=== PATIENT | male | born 1945 | race Caucasian/White ===

== ENCOUNTER 2021-05-02 18:49 | Outpatient (CLI) | payer MEDICARE, OTHER, SELFPAY ==
[2021-05-02 18:59] LABS: Basophils % 0.4 %; Eosinophils % 0.4 %; Hematocrit 27.7 % (42.0-52.0); Hemoglobin 9.4 g/dL (11.7-16.6); Lymphocytes # 1.9 10^3/uL (0.8-4.8); Lymphocytes % 39.6 %; Mean Corpuscular HGB Conc 33.9 g/dL (30.0-36.0); Mean Corpuscular Hemoglobin 32.4 pg (28.0-34.0); Mean Corpuscular Volume 95.5 fL (80-94); Mean Platelet Volume 9.9 fL (7.4-10.4); Monocytes # 0.5 10^3/uL (0.2-0.9); Neutrophils # 2.37 10^3/uL (1.8-7.7); Neutrophils % 49.4 %; Nucleated Red Blood Cells % 0 %; Platelet Count 204 10^3/cmm (130-400); Red Cell Distribution Width 15.7 % (12.1-15.1); White Blood Count 4.8 10^3/uL (4.0-10.0)
[2021-05-02 19:25] LABS: Anion Gap 16.1 (5-19); Blood Urea Nitrogen 19 mg/dL (8-23); Calcium 7.7 mg/dL (8.5-10.5); Carbon Dioxide 25 mmol/L (22-29); Chloride 98 mmol/L (98-107); Glucose 114 mg/dL (65-115); Osmolality Calculated 283 mOsm/kg (285-295); Potassium 4.1 mmol/L (3.5-5.1); Sodium 135 mmol/L (136-145)
== END 2021-05-02 18:50 | disposition home or self-care (01) ==
PROVIDERS: Visit Provider Family Medicine
DX: K74.60 Unspecified cirrhosis of liver (principal); I50.9 Heart failure, unspecified
CPT/HCPCS: 80048; 85025

== ENCOUNTER 2021-06-26 13:07 | Inpatient (IN) | payer OTHER, MEDICARE, SELFPAY ==
[2021-06-26] VITALS (7 sets, daily range): BP systolic 104–114; BP diastolic 7–79; PULSE 81–98; RESP 22–26; TEMP 36.6–37.2; O2SAT 92–95; BMI 23.3
--- NOTE | 2021-06-26 13:36 | XRR_ITS ---
PROCEDURE INFORMATION: Exam: XR Chest Exam date and time: 06/26/2021 1:36 PM Age: 76 years old Clinical indication: Cough TECHNIQUE: Imaging protocol: XR of the chest. Views: 1 view. COMPARISON: No relevant prior studies available. FINDINGS: Tubes, catheters and devices: Three lead pacemaker device. Lungs: There are streaky right perihilar opacities. Left costophrenic angle is not visualized and a pleural effusion cannot be assessed for. Pleural spaces: See Lungs finding. Heart/Mediastinum: Unremarkable. No cardiomegaly. Bones/joints: There are posterior sternotomy changes and postoperative changes overlying the mediastinum. Soft tissues: No normal left lung tissue is seen. The region of the left lung appears to be completely consolidated. XR/XR chest 1V portable [id number] IMPRESSION: 1. Complete consolidation of the left lung space. Differential includes pneumonia, atelectasis, and or neoplasm. 2. Streaky opacities at the right perihilum are nonspecific.
--- NOTE | 2021-06-26 13:37 | ED_ITS ---
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 They sent the patient to the emergency department for testing. Patient's vital signs are stable. O2 sat on room air is 95%. Patient has no specific complaints. Patient states he recently got out of [facility] in [place]. Patient looks like he has a history of cirrhosis of the liver. And has a defibrillator in the left chest. Patient has multiple spots of bruising on his chest. Will do medical evaluation treat as needed. Patient states recently was admitted to [facility] and had fluid drained from his left lung. Patient has long history of chronic cirrhosis and prostate cancer. Patient has a defibrillator left chest. Patient states he is not going back to [facility]. Patient was transferred to the local nursing facility in this area for penitentiary placement. Nursing staff attempted to try to get medical records from [facility]. This patient does not appear to have any TB type issues. Severity: mild Associated symptoms: Deny chest pain, dyspnea, headache(s), nausea, rash, palpitations or vomiting Review of Systems General: Reports: 10 or more systems reviewed and unremarkable except in HPI and below Const: Denies: fever(s), chills, body aches or fatigue Eyes: Denies: change in vision or blurry vision ENMT: Denies: throat pain, hoarseness or mouth pain Card: Denies: chest pain, palpitations, irregular heart rhythm, edema, swelling of feet/ankles or lightheadedness Resp: Reports: non-productive cough; Denies: dyspnea, productive cough, wheezing or pain on inspiration GI: Denies: abdominal pain, nausea or vomiting : Denies: flank pain, dysuria, urinary frequency, urinary urgency or urinary hesitancy Musc: Denies: neck pain, back pain, extremity pain, extremity swelling, joint pain, joint swelling, joint redness, joint warmth or limited range of motion Skin/Breast: Denies: rash, pruritus, erythema or skin tenderness Neuro: Denies: headache(s), numbness in extremities or weakness in extremities Psych: Denies: anxiety or depression Physical Exam Const: COMMON NORMALS: no acute distress, average body habitus, patient oriented x3, no limitations, healthy appearing, alert and well nourished HENMT: COMMON NORMALS: normocephalic, atraumatic, hearing grossly normal bilaterally, external ears normal, EAC's normal, TM's normal bilaterally, Normal external nose present, Normal nasal mucous membranes and turbinates present, moist oral mucous membranes, oropharynx normal, dentition normal and gingiva normal HEAD & SCALP: normocephalic and atraumatic NOSE: Normal external nose present and Normal nasal mucous membranes and turbinates present EXTERNAL EAR: Yes external ears normal EXTERNAL AUDITORY CANAL: EAC's normal TYMPANIC MEMBRANE: TM's normal bilaterally Neck/C-Spine: COMMON NORMALS: full ROM, no lymphadenopathy, supple, no meningeal signs, no JVD, Thyroid normal and No carotid bruits THYROID: Thyroid normal Chest: COMMONS NORMALS: normal inspection of the chest, normal palpation of entire chest wall, normal inspection of the breasts and normal palpation of the breasts Breast/axilla inspection: Yes normal inspection of the breasts BREAST/AXILLA PALPATION: Yes normal palpation of the breasts Resp: COMMON NORMALS: normal respiratory effort, No retractions, No use of accessory muscles, clear to auscultation bilaterally and percussion normal AUSCULTATION: clear to auscultation bilaterally PERCUSSION: percussion normal Cardio: COMMON NORMALS: no JVD, regular rate, regular rhythm, S1 normal heart sound present, S2 normal heart sound present, No gallops present (Cardio), No clicks present (Cardio), No murmurs present (Cardio), No rub (Cardio) and Peripheral pulses 2+ throughout RATE: regular rate RHYTHM: regular rhythm HEART SOUNDS: S1 normal heart sound present and S2 normal heart sound present PERIPHERAL PULSES: Peripheral pulses 2+ throughout GI: COMMON NORMALS: Normal to inspection, nondistended, normoactive bowel sounds present, Soft to palpation, non-tender, No hepatosplenomegaly present, no masses and no bruits PALPATION: Yes Soft to palpation and Yes No hepatosplenomegaly present : COMMON NORMALS: Yes no CVA tenderness BLADDER/KIDNEY EXAM: Yes no CVA tenderness Back/Pelvis: COMMON NORMALS: no CVA tenderness, thoracic and lumbar spine normal to inspection, no thoracic nor lumbar tenderness, thoraco-lumbar ROM normal and straight leg raise negative bilaterally Extremity: COMMON NORMALS: normal to inspection, full ROM, capillary refill normal, no joint enlargement, no clubbing, cyanosis or edema, no calf tenderness and no pedal edema Neuro: COMMON NORMALS: patient oriented x3 SENSORIUM/ORIENTATION: Yes alert MENINGEAL SIGNS: Yes no meningeal signs Course Reevaluation(s): Reevaluation #1: Patient is stable at this time O2 sats 95% on room air. Patient appears to have chronic conditions to cause his recurrent pleural effusion per his history. Patient is agreeable to stay in the hospital. Patient did have an outpatient lab draw for TB. Time: 16:57 Consultations: Consultation #1: I did just speak with Dr.NIDA goodrich. She is agreed to see the patient write additional orders. Time: 16:58 Consultation #2: I did speak at length with Dr. Mccormick pulmonology they will see patient as a consult Time: 16:58 Vital Signs: Vital signs: Vital Signs Temperature 98.7 F 06/26/21 14:00 Pulse Rate 91 06/26/21 14:00 Respiratory Rate 24 H 06/26/21 13:40 Blood Pressure 104/74 06/26/21 14:00 Pulse Oximetry 95 06/26/21 14:00 MDM - General Adult MDM Narrative: Medical decision making narrative: Patient is stable at this time O2 sats 95% on room air. Patient appears to have chronic conditions to cause his recurrent pleural effusion per his history. Patient is agreeable to stay in the hospital. Patient did have an outpatient lab draw for TB. I did just speak with Dr.NIDA goodrich. She is agreed to see the patient write additional orders. I did speak at length with Dr. Mccormick pulmonology they will see patient as a consult Lab Data: Labs: Lab Results 06/26/21 06/26/21 06/26/21 Range/Units 14:15 14:15 14:15 WBC 3.8 L (4.0-10.0) 10^3/ uL RBC 2.94 L (4.1-5.3) 10^6/u L Hgb 9.3 L (11.7-16.6) g/dL Hct 29.1 L (42.0-52.0) % MCV 99.0 H (80-94) fl MCH 31.6 (28.0-34.0) pg MCHC 32.0 (30.0-36.0) g/dL RDW 16.8 H (12.1-15.1) % Plt Count 203 (130-400) 10^3/c mm MPV 9.0 (7.4-10.4) fL Neut % (Auto) 63.1 % Lymph % (Auto) 25.1 % [place] % (Auto) 10.7 % Eos % (Auto) 0.3 % Baso % (Auto) 0.5 % Neut # (Auto) 2.37 (1.8-7.7) 10^3/u L Lymph # (Auto) 0.9 (0.8-4.8) 10^3/u L [place] # (Auto) 0.4 (0.2-0.9) 10^3/u L Eos # (Auto) 0.0 (0.0-0.8) 10^3/u L Baso # (Auto) 0.0 (0.0-0.1) 10^3/u L Nucleated RBC % (a uto) 0 % Nucleated RBCs # 0.0 /100WBC PT 19.90 H (12.1-14.9) SECO NDS INR 1.65 H (0.8-1.2) APTT 44.5 H (23.9-36.7) SECO NDS Sodium 137 (136-145) mmol/L Potassium 4.1 (3.5-5.1) mmol/L Chloride 108 H (98-107) mmol/L Carbon Dioxide 20 L (22-29) mmol/L Anion Gap 13.1 (5-19) BUN 18 (8-23) mg/dL Creatinine 0.9 (0.7-1.2) mg/dL GFR Calculation Not Reportable Glucose 113 (65-115) mg/dL Calculated Osmolal ity 287 (285-295) mOsm/k g Calcium 8.2 L (8.5-10.5) mg/dL Total Bilirubin 1.0 (0.15-1.2) mg/dL AST 14 (0-40) U/L ALT 6 (0-41) U/L Alkaline Phosphata se 164 H (40-130) IU/L Total Protein 5.6 L (6.6-8.7) g/dL Albumin 2.3 L (3.5-5.2) g/dL Globulin 3.3 (1.3-4.6) g/dL Discharge Plan Discharge Patient Disposition: Placed in Observation Clinical Impression: Dyspnea, Recurrent left pleural effusion, Cirrhosis of liver Coding Level of Care Code ED Extractor Operator Helper for [facility] Fwd Exam Comprehensive
--- NOTE | 2021-06-26 14:02 | PC.NURSE ---
unable to get venipuncture. lab called for blood draw.
[2021-06-26 14:37] LABS: Basophils % 0.5 %; Eosinophils % 0.3 %; Hematocrit 29.1 % (42.0-52.0); Hemoglobin 9.3 g/dL (11.7-16.6); INR 1.65 (0.8-1.2); Lymphocytes # 0.9 10^3/uL (0.8-4.8); Lymphocytes % 25.1 %; Mean Corpuscular Hemoglobin 31.6 pg (28.0-34.0); Monocytes # 0.4 10^3/uL (0.2-0.9); Monocytes % 10.7 %; Neutrophils # 2.37 10^3/uL (1.8-7.7); Neutrophils % 63.1 %; Nucleated Red Blood Cells % 0 %; Platelet Count 203 10^3/cmm (130-400); Red Blood Count 2.94 10^6/uL (4.1-5.3); Red Cell Distribution Width 16.8 % (12.1-15.1); White Blood Count 3.8 10^3/uL (4.0-10.0)
[2021-06-26 14:38] LABS: Partial Thromboplastin Time 44.5 SECONDS (23.9-36.7)
[2021-06-26 14:48] LABS: Alanine Aminotransferase 6 U/L (0-41); Albumin Level 2.3 g/dL (3.5-5.2); Alkaline Phosphatase 164 IU/L (40-130); Anion Gap 13.1 (5-19); Aspartate Amino Transferase 14 U/L (0-40); Blood Urea Nitrogen 18 mg/dL (8-23); Calcium 8.2 mg/dL (8.5-10.5); Carbon Dioxide 20 mmol/L (22-29); Chloride 108 mmol/L (98-107); Globulin 3.3 g/dL (1.3-4.6); Glucose 113 mg/dL (65-115); Osmolality Calculated 287 mOsm/kg (285-295); Potassium 4.1 mmol/L (3.5-5.1); Sodium 137 mmol/L (136-145); Total Protein 5.6 g/dL (6.6-8.7)
--- NOTE | 2021-06-26 15:31 | CTR_ITS ---
PROCEDURE INFORMATION: Exam: CT Chest Without Contrast; Diagnostic Exam date and time: 06/26/2021 3:31 PM Age: 76 years old Clinical indication: Abnormal findings; Abnormal radiologic exam of lung or chest; Prior surgery; Surgery date: 6+ months; Surgery type: Cabg, defib; Patient HX: C/O cough w L lung effusion; Additional info: Pleural effsusion TECHNIQUE: Imaging protocol: Diagnostic computed tomography of the chest without contrast. Radiation optimization: All CT scans at this facility use at least one of these dose optimization techniques: automated exposure control; mA and/or kV adjustment per patient size (includes targeted exams where dose is matched to clinical indication); or iterative reconstruction. COMPARISON: CR XR chest 1V portable [id number] 06/26/2021 1:48 PM RADIATION DOSE METRICS: Total DLP (mGy-cm): 717.36 FINDINGS: Tubes, catheters and devices: Three lead pacemaker device. Lungs: There are pulmonary parenchymal calcifications consistent with remote granulomatous organism exposure. There are scattered regions of right subpleural interstitial thickening, greatest at the lung base, suggestive of pulmonary fibrosis. Pleural spaces: Large left pleural effusion with adjacent compressive atelectasis and or pneumonia. Heart: Multivessel atherosclerotic disease which involves the coronary arteries. Mediastinal space: There are post sternotomy changes and postoperative changes in the anterior mediastinum. There is leftward mediastinal shift. Aorta: Unremarkable. No aortic aneurysm. Lymph nodes: Unremarkable. No enlarged lymph nodes. Bones/joints: Unremarkable. No acute fracture. Soft tissues: Unremarkable. CT/CT chest wo con [id number] IMPRESSION: 1. Large left pleural effusion with adjacent compressive atelectasis and or pneumonia. There is definitely a degree of atelectasis involved in the consolidation as there is a leftward mediastinal shift. Underlying neoplasm in the region of consolidation cannot be excluded. 2. There are scattered regions of right subpleural interstitial thickening, greatest at the lung base, suggestive of pulmonary fibrosis. Radiation Dose CTDIVOL = (mGy): DLP = 717.36 (mGy-cm)
--- NOTE | 2021-06-26 17:45 | PC.NURSE ---
tried to call report, [facility] nurse to call me back
--- NOTE | 2021-06-26 18:56 | PM.HP ---
Providers/Chief Complaint Admitting Physician: Matilda Hairston MD Chief Complaint: COUGH; WANTS TB TEST History of Present Illness Hernan iRzo is a 76 year old male with past medical history significant for alcoholic cirrhosis, prostate cancer status post 9 weeks of radiation 6 years ago, hypertension, CABG with dilated cardiomyopathy with recent echo of LVEF 50%, status post ICD, portal gastropathy, hepatic encephalopathy, type 2 diabetes who presents to the ED today requesting a TB test. Patient is a very very poor historian. He is aware he is in the hospital knows what year it is and is alert but does not seem to want to talk. When asked questions he is unable to really provide much information except that he has been coughing up brown sputum. He repeatedly tells me that he was at [facility] admitted for low blood pressure and from there was sent to rehab in a care home. custodial is requesting a TB test and that is why he is here. He denies having a history of alcoholic cirrhosis or any other medical problems however does acknowledge that he has had open heart surgery in 1991. He does endorse having had thoracentesis and paracentesis prior but unable to give me a timeframe. Paperwork and discharge summary was requested from [facility] which details that patient was recently admitted there for acute respiratory failure due to large left pleural effusion along with significant hypovolemic shock and SRINIVAS. There was a questionable GI bleed although it was ruled out at the end. He did require ICU stay and was on Levophed for short part of time. Eventually [facility]. 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 Patient repeatedly states that he does not want to go back to [facility] as he was treated poorly area and would like to stay here in [place]. He lives in [place] and sees his primary care physician at [place] at the [place]. He does not know the name of his doctor. Today he reports to me that he has been having brown sputum for quite some time now he believes after his recent thoracentesis it has gotten worse. He denies any night sweats, fevers, chest pain, abdominal pain, recent falls. Denies having a cough although patient was coughing while I was in the room. He lives at home with his prior to going to hospital in [place]. 's name is Laila [phone]. He is a former smoker quit in 1991, reports quitting alcohol 1 year ago. Most of the above information was obtained from discharge summary from [facility]. Although patient did answer most of my questions I do not believe he is a reliable historian at this point. Review of Systems Const: Denies: fever(s), chills, body aches, change in appetite, change in weight, fatigue, night sweats or diaphoresis Eyes: Denies: change in vision or blurry vision ENMT: Denies: hoarseness, mouth pain or change in hearing Card: Denies: chest pain, palpitations, swelling of feet/ankles, syncope or dyspnea on exertion Resp: Reports: productive cough and change in phlegm color; Denies: dyspnea GI: Denies: abdominal pain, nausea, vomiting, dysphagia or diarrhea : Denies: difficulty urinating, urinary frequency or urinary urgency Musc: Denies: neck pain or back pain Skin/Breast: Denies: rash or skin swelling Neuro: Reports: difficulty walking; Denies: headache(s) or weakness in extremities Psych: Denies: anxiety, depression or difficulty concentrating Endo: Denies: excessive sweating [place]/Lymph: Reports: easy bruising Medications/Allergies Home Medications Medication Instructions Recorded Confirmed Last Taken Type acetaminophen 325 mg PO Q6H PRN 06/26/21 06/26/21 Unknown History acetaminophen 500 mg PO TID PRN 06/26/21 06/26/21 Unknown History allopurinol 100 mg PO DAILY 06/26/21 06/26/21 06/26/21 History aspirin 81 mg PO DAILY 06/26/21 06/26/21 06/26/21 History atorvastatin 40 mg PO DAILY 06/26/21 06/26/21 06/25/21 History bisacodyl [Dulcolax (bisacodyl)] 10 mg MA DAILY PRN 06/26/21 06/26/21 Unknown History calcium carbonate 500 mg PO BID 06/26/21 06/26/21 06/26/21 History cholecalciferol (vitamin D3) 25 mcg PO DAILY 06/26/21 06/26/21 06/26/21 History [Vitamin D3] cyanocobalamin (vitamin B-12) 6,000 mcg PO DAILY 06/26/21 06/26/2106/26/21 History ferrous fumarate 324 mg PO DAILY 06/26/21 06/26/21 06/26/21 History folic acid 1 mg PO DAILY 06/26/21 06/26/21 06/26/21 History furosemide [Lasix] 20 mg PO DAILY 06/26/21 06/26/21 06/26/21 History gabapentin 600 mg PO BEDTIME 06/26/21 06/26/21 06/25/21 History lactulose 30 ml PO Q6H 06/26/21 06/26/21 06/25/21 History levothyroxine 50 mcg PO DAILY 06/26/21 06/26/21 06/24/21 History midodrine 5 mg PO TID 06/26/21 06/26/21 06/26/21 History nitroglycerin [Nitrostat] 0.4 mg SUBLINGUAL Q5M PRN 06/26/21 06/26/21 Unknown History pantoprazole 40 mg PO DAILY 06/26/21 06/26/21 06/26/21 History rifaximin [Xifaxan] 550 mg PO BID 06/26/21 06/26/21 06/26/21 History sucralfate [Carafate] 1 g PO QID 06/26/21 06/26/21 06/24/21 History Allergies Allergy/AdvReac Type Severity Reaction Status Date / Time morphine Allergy Unknown Unknown Verified 06/26/21 17:27 PFSH Acute PFSH: Medical History (Updated 06/26/21 @ 20:27 by Matilda Hairston MD) Cirrhosis of liver Diabetes mellitus Dilated cardiomyopathy Dyspnea Hepatic encephalopathy Hypertension Hypothyroidism ICD (implantable cardioverter-defibrillator) in place Prostate cancer Recurrent left pleural effusion Varices, esophageal Surgical History (Updated 06/26/21 @ 19:10 by Matilda Hairston MD) Hx of CABG Knee joint replacement status Social History (Updated 06/26/21 @ 19:12 by Matilda Hairston MD) Smoking and tobacco status: former smoker Quit status (tobacco): has quit using tobacco Alcohol intake: former Desire information about alcohol rehabilitation?: No Other details last alcohol use: 1 year prior Substance/Drug Use: never Lives independently: No Household members: spouse Current gender identity: Male Vitals/I&O/Wt Last Vital Signs Temp 98.9 F 06/26/21 17:45 Pulse 96 06/26/21 18:38 Resp 22 H 06/26/21 18:38 BP 106/54 06/26/21 18:38 Pulse Ox 94 06/26/21 17:45 Weight last 48 hrs Weight 63.503 kg Physical Exam Narrative: EXAM NARRATIVE: General: Alert oriented x3, patient seen laying in bed in emergency room bed 8. Frail-appearing male cachectic appearance, temporal wasting. Patient awfully quiet and appears depressed. Does not seem to want to talk. Does answer questions but does not seem to be reliable historian. Appears confused but is alert and oriented. Continuously expectorates brownish sputum into an Ensure bottle. HEENT: Normocephalic, atraumatic, EOMI, breathing room air Cardio: Regular rate rhythm, normal S1-S2, no murmurs rubs gallops, no JVD, ICD in place left-sided chest. Respiratory: Significant crackles all throughout the right side of chest, left side clear to auscultation with mild crackles at the bases. GI: Abdomen soft, nontender, distended, fluid wave positive, normoactive bowel sounds present all 4 quadrants, No focal neurological deficit, limited neuro exam Behavior: Appears depressed, did cooperate somewhat. Extremities: No cyanosis or edema. Skin: Large areas of ecchymosis all over chest shoulders and arms. Dry appearing scaly skin, Data : 06/26/21 14:15 06/26/21 14:15 A&P Assessment and plan (1) Recurrent left pleural effusion: CT chest shows large left pleural effusion with adjacent compressive atelectasis and/or pneumonia. There is definitely a degree of atelectasis involving the consolidation adjacent left with mediastinal shift. Underlying neoplasm in the region of consolidation cannot be excluded. There are scattered regions of right subpleural interstitial thickening greatest at lung base congestive pulmonary fibrosis. Rule out TB as per care home request. Patient has been having dark brown sputum production from last several weeks as per he reports. We will start airborne precautions and ordered both QuantiFERON-TB test. Have ordered thoracentesis and pleural fluid studies Consult pulmonology. Will await further recommendations. Will order sputum culture and Gram stain Check procalcitonin We will order urine antigens for strep pneumo and Legionella, MRSA nares swab Cover with vanc and cefepime as empiric therapy for now. Continue patient on Lasix, lactulose, Carafate, rifaximin. Ammonia level has been ordered. Will start Lasix 40 mg daily, spironolactone 100 mg daily. If map drops below 65 patient is to get low-dose Levophed. Case was discussed over the phone with Dr. Baugh who will see patient in the morning. We will review records from [facility] in regards to cirrhosis of the liver status at this point. We will continue patient on lactulose rifaximin.MELD score 12. Continue patient on levothyroxine Check hemoglobin A1c. If required continue low-dose sliding scale insulin per patient I would also like to request records from his primary care physician to get a little more information. Status: Acute (2) Cirrhosis of liver: We will review records from [facility] in regards to cirrhosis of the liver status at this point. We will continue patient on lactulose rifaximin. Status: Acute (3) Hypothyroidism: Status: Acute (4) Diabetes mellitus: Status: Acute (5) Hepatic encephalopathy: Status: Acute (6) Dyspnea: Status: Acute (7) Protein-calorie malnutrition, severe: Status: Acute Attestations Medical Necessity Statement*: Patient will require thoracentesis in the morning. Time Spent in Patient Care: Greater than 35 minutes Coding Level of Care Code Acute Investigations Consultant for [facility] Fwd Diagnoses Recurrent left pleural effusion J90 Cirrhosis of liver K74.60 Hypothyroidism E03.9 Diabetes mellitus E11.9 Hepatic encephalopathy K72.90 Dyspnea R06.00 Protein-calorie malnutrition, severe E43
[2021-06-26 20:37] LABS: Ammonia 34 umol/L (16-60)
[2021-06-26 21:01] LABS: Procalcitonin 0.27 ng/mL (0-0.5)
--- NOTE | 2021-06-26 21:26 | PC.PHAR ---
Vancomycin is dosed at 1500mg IVPB every 24 hours to produce a predicted trough level of 12.97 (population based pharmacokinetic analysis). A trough level has been ordered from the lab to be obtained before the fourth dose to confirm and adjust if needed.
[2021-06-26] MEDS: midodrine 5 mg TABLET PO (22:41)
[2021-06-26] MEDS: sucralfate 1 gm Tablet PO (22:41)
[2021-06-26] MEDS: lactulose oral liq 20 gm/30 mL UDC PO (22:49)
[2021-06-26] MEDS: vancomycin 1,500 MG/300 ML PIGGYBACK 150 MG IV (22:50)
[2021-06-26] MEDS: cefepime 1,000 MG in sodium chloride 0.9% (plus) 50 ML 100 MG IV (22:56)
[2021-06-27] VITALS (30 sets, daily range): BP systolic 93–119; BP diastolic 42–84; PULSE 0–98; RESP 17–29; TEMP 36.6–37.2; O2SAT 85–93
[2021-06-27 04:17] LABS: Basophils % 0.9 %; Eosinophils % 0.9 %; Hematocrit 30.7 % (42.0-52.0); Hemoglobin 9.1 g/dL (11.7-16.6); Lymphocytes % 29.8 %; Mean Corpuscular HGB Conc 29.6 g/dL (30.0-36.0); Mean Corpuscular Hemoglobin 32.2 pg (28.0-34.0); Mean Corpuscular Volume 108.5 fl (80-94); Mean Platelet Volume 9.1 fL (7.4-10.4); Monocytes # 0.4 10^3/uL (0.2-0.9); Monocytes % 11.3 %; Neutrophils # 1.97 10^3/uL (1.8-7.7); Neutrophils % 56.8 %; Nucleated Red Blood Cells % 0 %; Platelet Count 182 10^3/cmm (130-400); Red Blood Count 2.83 10^6/uL (4.1-5.3); White Blood Count 3.5 10^3/uL (4.0-10.0)
[2021-06-27 04:45] LABS: Alanine Aminotransferase 6 U/L (0-41); Albumin Level 2.1 g/dL (3.5-5.2); Alkaline Phosphatase 161 IU/L (40-130); Anion Gap 13.1 (5-19); Aspartate Amino Transferase 14 U/L (0-40); Blood Urea Nitrogen 15 mg/dL (8-23); Calcium 8.2 mg/dL (8.5-10.5); Carbon Dioxide 16 mmol/L (22-29); Chloride 110 mmol/L (98-107); Globulin 3.3 g/dL (1.3-4.6); Glucose 78 mg/dL (65-115); Magnesium 1.6 mg/dL (1.7-2.3); Osmolality Calculated 280 mOsm/kg (285-295); Phosphorus 3.1 mg/dL (2.5-4.5); Potassium 4.1 mmol/L (3.5-5.1); Sodium 135 mmol/L (136-145); Total Bilirubin 0.9 mg/dL (0.15-1.2); Total Protein 5.4 g/dL (6.6-8.7)
[2021-06-27 04:46] LABS: Total Protein 5.3 g/dL (6.6-8.7)
[2021-06-27 04:49] LABS: Estmated Average Glucose 82; Hemoglobin A1C 4.5 % (4.0-6.0)
[2021-06-27 05:00] LABS: Lactate Dehydrogenase 225 U/L (135-225)
--- NOTE | 2021-06-27 07:08 | P.CONIM_ITS ---
Providers/Reason For Consult Consulting Physician/Specialty*: Bradley Heard MD/ Pulmonary Critical Care Reason for Consult*: Hepatic hydrothorax Requesting Physician: Matilda Hairston MD Attending Physician: Matilda Hairston MD History of Present Illness History of Present Illness Hernan Rizo is a 76 year old male with PMH alcoholic cirrhosis, prostate cancer status post 9 weeks of radiation 6 years ago, hypertension, CABG in 1991 with dilated cardiomyopathy with recent echo of LVEF 50%, status post ICD, portal gastropathy, h/o hepatic encephalopathy, type 2 diabetes presented to ED on 06/26/2021 requesting a TB test And was recently admitted to [facility] for low blood pressure and from there was sent to current alf. halfway is requesting a TB test and that is why he is here. Paperwork and discharge summary was requested from [facility] which details that patient was recently admitted there for acute respiratory failure due to large left pleural effusion along with significant hypovolemic shock and SRINIVAS. There was a questionable GI bleed although it was ruled out. He did require ICU stay and was on Levophed for few days.. Eventually he was discharged to a retirement facility. Patient repeatedly states that he does not want to go back to [facility] as he was treated poorly there and would like to stay here in [place]. He lives in [place] and sees his primary care physician at [place] at the [place]. Patient is a very very poor historian but he is aware, alert and oriented x3. Complained of coughing up brown sputum and he believes after his recent thoracentesis it has gotten worse. He denies any night sweats, fevers, chest pain, abdominal pain, recent falls. Prior to [facility] admission, he used to live at home with his Ms. Ulloa [phone].He is a former smoker quit in 1991, reports quitting alcohol 1 year ago. Upon admission in the ED, patient has significant abdominal distention and chest x-ray and subsequent CT chest showed large left pleural effusion with adjacent compressive atelectasis and/or pneumonia and leftward mediastinal shift. There are right subpleural interstitial thickening greatest at lung base suggestive of pulmonary fibrosis. Patient was saturating 93- 94% on room air and does not appear in cardiopulmonary distress. Pulmonary consulted for large left pleural effusion. Seen today morning at bedside, lying in bed with no acute distress. Pt had hisotry of alcoholic cirrhosis. Bedside sono showed significantly higher left hemidiaphragm with massive ascites. Patient was receiving Lasix 40 mg and lactulose and rifaximin for hepatic encephalopathy and reported compliance. Upon review of discharge records from [facility]-he underwent thoracentesis on 06/17/2021 at [facility] for large left pleural effusion. Fluid LDH 155, Protein 3.2. Echo 06/18/21 EF 60-65%, RV fx normal, mild to moderate MVR, RV systolic pressure 22. VQ scan 06/17/2021: Negative low probability for pulmonary embolism. Chest x-ray 06/16/2021 showed bandlike areas of pulmonary consolidation infiltrate are seen within the left lower lobe lingula and left upper lobe with probable small left-sided pleural effusion. Minimal atelectasis or infiltrate within the right lung base. Patient is extremely sensitive to pain diffusely. Does not continue conversation and very difficult to elicit historyAnd at times uncooperative Other labs and imaging reviewed Review of Systems Const: Denies: fever(s), chills, body aches, change in appetite, change in weight, fatigue, night sweats or diaphoresis Eyes: Denies: change in vision or blurry vision ENMT: Denies: hoarseness, mouth pain or change in hearing Card: Denies: chest pain, palpitations, swelling of feet/ankles, syncope or dyspnea on exertion Resp: Reports: productive cough and change in phlegm color; Denies: dyspnea GI: Denies: abdominal pain, nausea, vomiting, dysphagia or diarrhea : Denies: difficulty urinating, urinary frequency or urinary urgency Musc: Denies: neck pain or back pain Skin/Breast: Denies: rash or skin swelling Neuro: Reports: difficulty walking; Denies: headache(s) or weakness in extremities Psych: Denies: anxiety, depression or difficulty concentrating Endo: Denies: excessive sweating Landry/Lymph: Reports: easy bruising Meds/Allergies Home Medications and Allergies Home Medications Medication Instructions Recorded Confirmed Last Taken Type acetaminophen 325 mg PO Q6H PRN 06/26/21 06/26/21 Unknown History acetaminophen 500 mg PO TID PRN 06/26/21 06/26/21 Unknown History allopurinol 100 mg PO DAILY 06/26/21 06/26/21 06/26/21 History aspirin 81 mg PO DAILY 06/26/21 06/26/21 06/26/21 History atorvastatin 40 mg PO DAILY 06/26/21 06/26/21 06/25/21 History bisacodyl [Dulcolax (bisacodyl)] 10 mg [place] DAILY PRN 06/26/21 06/26/21 Unknown History calcium carbonate 500 mg PO BID 06/26/21 06/26/21 06/26/21 History cholecalciferol (vitamin D3) 25 mcg PO DAILY 06/26/21 06/26/21 06/26/21 History [Vitamin D3] cyanocobalamin (vitamin B-12) 6,000 mcg PO DAILY 06/26/21 06/26/21 06/26/21 History ferrous fumarate 324 mg PO DAILY 06/26/21 06/26/21 06/26/21 History folic acid 1 mg PO DAILY 06/26/21 06/26/21 06/26/21 History furosemide [Lasix] 20 mg PO DAILY 06/26/21 06/26/21 06/26/21 History gabapentin 600 mg PO BEDTIME 06/26/21 06/26/21 06/25/21 History lactulose 30 ml PO Q6H 06/26/21 06/26/21 06/25/21 History levothyroxine 50 mcg PO DAILY 06/26/21 06/26/21 06/24/21 History midodrine 5 mg PO TID 06/26/21 06/26/21 06/26/21 History nitroglycerin [Nitrostat] 0.4 mg SUBLINGUAL Q5M PRN 06/26/21 06/26/21 Unknown History pantoprazole 40 mg PO DAILY 06/26/21 06/26/21 06/26/21 History rifaximin [Xifaxan] 550 mg PO BID 06/26/21 06/26/21 06/26/21 History sucralfate [Carafate] 1 g PO QID 06/26/21 06/26/21 06/24/21 History Allergies Allergy/AdvReac Type Severity Reaction Status Date / Time morphine Allergy Unknown Unknown Verified 06/26/21 17:27 Current Medications Current Medications Generic Name Dose Route Start Last Admin Trade Name Freq PRN Reason Stop Dose Admin Cefepime HCl 1,000 mg/ Sodium 50 mls @ 100 mls/hr 06/26/21 19:45 06/26/21 22:56 Chloride IV 100 mls/hr Q12H ASIA Administration Protocol Vancomycin/PEG/NADA/Lysine/Water 1,500 mg in 300 mls @ 150 mls/hr 06/26/21 22:00 06/26/21 22:50 Vancocin IV 150 mls/hr Q24H ASIA Administration Lactulose 20 gm 06/26/21 21:02 06/26/21 22:49 Lactulose Oral Liq 20 Gm/30 Ml Udc PO 20 gm Q6H ASIA Administration Protocol Midodrine 5 mg 06/26/21 21:00 06/26/21 22:41 Midodrine 5 Mg Tablet PO 5 mg TID ASIA Administration Sucralfate 1 gm 06/26/21 21:00 06/26/21 22:41 Sucralfate 1 Gm Tablet PO 1 gm QID ASIA Administration PFSH Acute PFSH: Medical History Cirrhosis of liver Diabetes mellitus Dilated cardiomyopathy Dyspnea Hepatic encephalopathy Hypertension Hypothyroidism ICD (implantable cardioverter-defibrillator) in place Prostate cancer Recurrent left pleural effusion Surgical History Hx of CABG Knee joint replacement status Social History Smoking and tobacco status: former smoker Quit status (tobacco): has quit using tobacco Alcohol intake: former Desire information about alcohol rehabilitation?: No Other details last alcohol use: 1 year prior Substance/Drug Use: never Lives independently: No Household members: spouse Current gender identity: Male Vitals/I&O/Wt Last Vital Signs Temp 98.1 F 06/27/21 03:32 Pulse 90 06/27/21 03:32 Resp 24 H 06/27/21 03:32 BP 119/84 06/27/21 03:32 Pulse Ox 92 06/27/21 03:32 Weight last 48 hrs Weight 140 lb Physical Exam Narrative: EXAM NARRATIVE: General: Thin cachectic elderly male, alert, NAD HEENT: conj clear, EOMI, PERRL, mmm, Neck: supple, no meningismus Heme: no cervical LAP Pulmonary: Reduced breath sounds on left lung Cardiovascular: rrr, nl s1s2, no mrg Abdomen: Distended, tender, bowel sounds positive Extremities: pulses +, no edema, no c/c : no CVA tenderness Skin: intact, no rash MSK: no back or neck pain Neurologic: grossly intact Data Labs: Other Labs: Laboratory Results WBC 3.5 10^3/uL (4.0- 10.0) L 06/27/21 03:40 RBC 2.83 10^6/uL (4.1 -5.3) L 06/27/21 03:40 Hgb 9.1 g/dL (11.7-16 .6) L 06/27/21 03:40 Hct 30.7 % (42.0-52.0 ) L 06/27/21 03:40 MCV 108.5 fl (80-94) H D 06/27/21 03:40 MCH 32.2 pg (28.0-34. 0) 06/27/21 03:40 MCHC 29.6 g/dL (30.0-3 6.0) L D 06/27/21 03:40 RDW 17.0 % (12.1-15.1 ) H 06/27/21 03:40 Plt Count 182 10^3/cmm (130 -400) 06/27/21 03:40 MPV 9.1 fL (7.4-10.4) 06/27/21 03:40 Neut % (Auto) 56.8 % 06/27/21 03:40 Lymph % (Auto) 29.8 % 06/27/21 03:40 Todd % (Auto) 11.3 % 06/27/21 03:40 Eos % (Auto) 0.9 % 06/27/21 03:40 Baso % (Auto) 0.9 % 06/27/21 03:40 Neut # (Auto) 1.97 10^3/uL (1.8 -7.7) 06/27/21 03:40 Lymph # (Auto) 1.0 10^3/uL (0.8- 4.8) 06/27/21 03:40 Todd # (Auto) 0.4 10^3/uL (0.2- 0.9) 06/27/21 03:40 Eos # (Auto) 0.0 10^3/uL (0.0- 0.8) 06/27/21 03:40 Baso # (Auto) 0.0 10^3/uL (0.0- 0.1) 06/27/21 03:40 Nucleated RBC % (a uto) 0 % 06/27/21 03:40 Nucleated RBCs # 0.0 /100WBC 06/27/21 03:40 PT 19.70 SECONDS (12 .1-14.9) H 06/27/21 07:24 INR 1.63 (0.8-1.2) H 06/27/21 07:24 APTT 44.5 SECONDS (23. 9-36.7) H 06/26/21 14:15 Sodium 135 mmol/L (136-1 45) L 06/27/21 03:40 Potassium 4.1 mmol/L (3.5-5 .1) 06/27/21 03:40 Chloride 110 mmol/L (98-10 7) H 06/27/21 03:40 Carbon Dioxide 16 mmol/L (22-29) L 06/27/21 03:40 Anion Gap 13.1 (5-19) 06/27/21 03:40 BUN 15 mg/dL (8-23) 06/27/21 03:40 Creatinine 0.8 mg/dL (0.7-1. 2) 06/27/21 03:40 GFR Calculation Not Reportable 06/27/21 03:40 Glucose 78 mg/dL (65-115) 06/27/21 03:40 Estimat Average Gl ucose 82 06/27/21 03:40 Hemoglobin A1c 4.5 % (4.0-6.0) 06/27/21 03:40 Calculated Osmolal ity 280 mOsm/kg (285- 295) L 06/27/21 03:40 Calcium 8.2 mg/dL (8.5-10 .5) L 06/27/21 03:40 Phosphorus 3.1 mg/dL (2.5-4. 5) 06/27/21 03:40 Magnesium 1.6 mg/dL (1.7-2. 3) L 06/27/21 03:40 Total Bilirubin 0.9 mg/dL (0.15-1 .2) 06/27/21 03:40 AST 14 U/L (0-40) 06/27/21 03:40 ALT 6 U/L (0-41) 06/27/21 03:40 Alkaline Phosphata se 161 IU/L (40-130) H 06/27/21 03:40 Ammonia 34 umol/L (16-60) 06/26/21 20:08 Lactate Dehydrogen ase 225 U/L (135-225) 06/27/21 03:40 Total Protein 5.3 g/dL (6.6-8.7 ) L 06/27/21 03:40 Total Protein 5.4 g/dL (6.6-8.7 ) L 06/27/21 03:40 Albumin 2.1 g/dL (3.5-5.2 ) L 06/27/21 03:40 Globulin 3.3 g/dL (1.3-4.6 ) 06/27/21 03:40 Procalcitonin 0.27 ng/mL (0-0.5 ) 06/26/21 20:08 Peritoneal Color Pale yellow (Pal e Yellow) 06/27/21 06:40 Peritoneal Appeara nce Clear (Clear) 06/27/21 06:40 Peritoneal pH 8.0 06/27/21 06:40 Peritoneal Spec Gr avity 1.010 06/27/21 06:40 Peritoneal WBC 37 /uL 06/27/21 06:40 Peritoneal RBC 0 10^3/uL 06/27/21 06:40 Periton Mononu # A uto 0.036 10^3/uL 06/27/21 06:40 Mononuclear WBCs % 97.300 % 06/27/21 06:40 Polynuclear WBCs % 2.700 % 06/27/21 06:40 Perit Polynuc WBCs # 0.001 10^3/uL 06/27/21 06:40 Peritoneal Tot Pro tein 2.1 g/dL 06/27/21 06:40 Peritoneal Albumin 1.1 g/dL 06/27/21 06:40 Peritoneal LDH 68.0 U/L 06/27/21 06:40 Peritoneal Glucose 86.0 mg/dL 06/27/21 06:40 Peritoneal Amylase 24 U/L (88-109) L 06/27/21 06:40 Peritoneal Triglyc erid 26 mg/dL 06/27/21 06:40 Nasal/Oral COVID-1 9 PCR Not detected 06/26/21 14:[address] 06/26/21 15:31 IMPRESSION: 1. Large left pleural effusion with adjacent compressive atelectasis and or pneumonia. There is definitely a degree of atelectasis involved in the consolidation as there is a leftward mediastinal shift. Underlying neoplasm in the region of consolidation cannot be excluded. 2. There are scattered regions of right subpleural interstitial thickening, greatest at the lung base, suggestive of pulmonary fibrosis. Radiation Dose CTDIVOL = (mGy): DLP = 717.36 (mGy-cm) Chest X-Ray 06/27/21 09:00 IMPRESSION: Stable left pleuroparenchymal disease with whiteout of the left hemithorax and shift of mediastinal structures to the left. A&P Assessment and plan (1) Dyspnea: Status: Acute Qualifiers: Dyspnea type: dyspnea on exertion Qualified Code(s): R06.00 - Dyspnea, unspecified (2) Recurrent left pleural effusion: Status: Acute (3) Ascites due to alcoholic cirrhosis: Status: Acute (4) Atelectasis of left lung: Status: Acute (5) Hydrothorax: Status: Acute (6) Protein-calorie malnutrition, severe: Status: Acute (7) Prostate cancer: Status: Acute (8) Hx of CABG: Status: Acute (9) ICD (implantable cardioverter-defibrillator) in place: Status: Acute #Cough with brownish sputum-suspicious for HCAP/aspiration pneumonia #Recurrent left pleural effusion and coexisting atelectasis of left lung- possible mucous plug #Effusion secondary to atelectasis vs hepatic hydrothorax in patient with alcoholic cirrhosis & ascites #Patient with history of CABG 1991 s/p AICD #History of prostate cancer -Hemodynamically stable and currently on 2 L saturating 94% -Bedside ultrasound did not show safe pocket to drain left pleural effusion but massive ascites -S/p paracentesis 06/27/2021-6700 cc straw-colored ascitic fluid drained; transudative fluid negative for SBP - child Fernandez score 10, meld score 12 and history of hepatic encephalopathy, history of prostate cancer, given advanced age-poor candidate for TIPS and liver transplant -Mentation intact-ammonia 34-currently on lactulose with target BM 2 to 3/day -He was taking only Lasix 40 at alf - recommended sodium restriction<2 g/day; Lasix 40 mg daily and spironolactone 100 mg daily; -Given 1 dose of albumin after large volume paracentesis -Chest physiotherapy/Mucomyst/hypertonic saline/DuoNeb nebulization to clear pulmonary secretions -Currently on airborne isolation and under investigation to rule out TB as per alf request; clinically low suspicion for TB-QuantiFERON testing pending; peritoneal fluid ADA pending -Covid PCR negative -Chest imaging-suspicious for underlying left lung pneumonia-currently covered with vancomycin and Zosyn to cover for HCAP as patient was recently discharged from outside hospital -Recommended to send for MRSA nares, sputum culture, bacterial antigens and Legionella antigen - Echo 06/18/21 in [place] EF 60-65%, RV fx normal, mild to moderate MVR, RV systolic pressure 22. - VQ scan 06/17/2021: In [place] negative low probability for pulmonary embolism -If no improvement with pulmonary toileting-l will plan for bronchoscopy for airway clearance; Medical condition explained to patient and he verbalized understanding and agreed with the plan Recommendations conveyed to hospitalist, RN, RT taking care of the patient Consult Attestations Medical Necessity Statement: Deferred to hospitalist Time Spent in Patient Care: Greater than 35 minutes (>than 50% of time spent in counselling and/or direct pt care on unit) . Critical Care Time: Critical Care Time (min): 90 Procedures Paracentesis Time out performed: Yes Indication: Ascites Procedure: therapeutic paracentesis Location: LLQ Local anesthetic used: lidocaine 1% Amount of anesthesia used (ml): 5 Bedside ultrasound used: yes, Ascites confirmed and location marked Preparation: sterile prep and drape Amount of fluid obtained (ml): 7 Fluid: clear and sent to lab for analysis Post procedure exam: awake, alert, normal BP, normal HR and normal SpO2 Patient tolerated procedure: well Complications: none Coding Level of Care Code Acute Behavioral Health Tech for Chg Fwd Medical Decision Making High Complexity Diagnoses Dyspnea R06.00 Dyspnea type: dyspnea on exertion Recurrent left pleural effusion J90 Ascites due to alcoholic cirrhosis K70.31 Atelectasis of left lung J98.11 Hydrothorax J94.8 Protein-calorie malnutrition, severe E43 Prostate cancer C61 Hx of CABG Z95.1 ICD (implantable cardioverter-defibrillator) in place Z95.810 Time Spent (min) 55
--- NOTE | 2021-06-27 07:09 | P.PCN_ITS ---
Procedure/Consent Time out: Time Out Performed: Yes Consent: Consent for Procedure: Consent obtained from patient, Risks & Benefits reviewed and Agrees to proceed with procedure Procedure Narrative: Paracentesis Procedure Note Date: 06-27-2021 Time: 6 AM Procedure: Diagnostic and therapeutic paracentesis Indication: Severe ascites with possible hepatic hydrothorax with respiratory distress University Administrative Assistant(s): Bradley Heard MD Consent: Signed on placed in chart Prior to the procedure, the patient was identified using two patient identifiers, and a timeout was performed. Anesthesia: 5 cc 1% lidocaine without epinephrine Description: left lower quadrant ascites was localized using ultrasound guidance and the site for pararacentesis was marked accordingly. After chlorhexidine skin prep, the area was draped in a sterile manner. 1% lidocaine was used for local anesthesia. The paracentesis catheter was then inserted into the peritoneal space with return of straw colored peritoneal fluid. A total of 6700 cc of peritoneal fluid was aspirated before catheter was removed. The fluid was sent for the usual studies, including cell count, cultures, gram stain, ADA Complications: none Post-procedure Ultrasound showed: minimal fluid Bradley Heard MD Pulmonary Critical Care Medicine [facility] Acute Procedures Epistaxis Control: Time out performed: Yes
--- NOTE | 2021-06-27 07:22 | PC.NURSE ---
Paracentesis completed today. 5 liters off. Patient still with fluid to abdomen. Fluids for culture sent to lab. MD will order specimens that are needed. Patient tolerated well. VS remained stable throughout procedure. Order will be placed by MD to have radiology remove more fluid later today. Report to oncoming nurse.
[2021-06-27 07:46] LABS: INR 1.63 (0.8-1.2)
[2021-06-27 08:13] LABS: Mononuclear #, Pertinoneal Fl 0.036 10^3/uL; Polynuclear # Cells, Perit 0.001 10^3/uL
[2021-06-27] MEDS: cefepime 1,000 MG in sodium chloride 0.9% (plus) 50 ML 100 MG IV (08:20)
[2021-06-27] MEDS: atorvastatin 40 mg Tablet PO (08:22)
[2021-06-27] MEDS: allopurinol 100 mg Tablet PO (08:22)
[2021-06-27] MEDS: lactulose oral liq 20 gm/30 mL UDC PO ×2 (08:22→20:40)
[2021-06-27 08:23] LABS: Appearance, Peritoneal Fluid Clear (Clear); Color, Peritoneal Fluid Pale Yellow (Pale Yellow)
[2021-06-27] MEDS: sucralfate 1 gm Tablet PO (08:23)
[2021-06-27] MEDS: aspirin 81 mg Chew Tablet PO (08:23)
[2021-06-27] MEDS: spironolactone 25 mg Tablet 100 MG PO (08:23)
[2021-06-27] MEDS: levothyroxine 50 mcg Tablet PO (08:23)
[2021-06-27] MEDS: midodrine 5 mg TABLET PO ×2 (08:23→20:48)
[2021-06-27] MEDS: pantoprazole DR 40 mg Tablet PO (08:23)
[2021-06-27] MEDS: folic acid 1 mg Tablet PO (08:23)
[2021-06-27] MEDS: cholecalciferol (vitamin D3) 1,000 unit Tablet 1000 UNIT PO (08:23)
[2021-06-27] MEDS: FUROsemide 40 mg Tablet PO (08:23)
--- NOTE | 2021-06-27 08:30 | PC.NURSE ---
Patient refused to take any meds for his stomach , I don't need them . Patient declined breakfast and and requested an ensure. Teaching. Patient has several new IV meds (albumin, magnesium) and a second IV site is needed to give incompatible meds. Patient refused to allow this nirse yo attempt second IV access. I requested charge nurse to discuss with patient.
[2021-06-27 08:45] LABS: Albumin Peritoneal Fluid 1.1 g/dL
[2021-06-27 08:46] LABS: Amylase Peritoneal Fluid 24 U/L (88-109); Total Protein Peritoneal Fluid 2.1 g/dL; Triglycerides,Peritoneal Fluid 26 mg/dL
[2021-06-27 08:48] LABS: RBC Pertioneal Fluid 0 10^3/uL; WBC Peritoneal Fluid 37 /uL
--- NOTE | 2021-06-27 09:00 | XRR_ITS ---
PROCEDURE INFORMATION: Exam: XR Chest Exam date and time: 06/27/2021 9:00 AM Age: 76 years old Clinical indication: Cough; Prior surgery; Surgery type: Cabg, defib; Additional info: Pleural fluid TECHNIQUE: Imaging protocol: XR of the chest. Views: 1 view. Total images: 1 COMPARISON: CT chest wo con [id number] 06/26/2021 3:44 PM FINDINGS: Tubes, catheters and devices: AICD projects in satisfactory location. Lungs: Stable left pleuroparenchymal disease with whiteout of the left hemithorax and shift of mediastinal structures to the left. Pleural spaces: No pneumothorax. Heart/Mediastinum: See Lungs finding. Bones/joints: Osseous structures are unchanged from the prior exam. Other findings: Stable postsurgical changes. XR/XR chest 1V portable [id number] IMPRESSION: Stable left pleuroparenchymal disease with whiteout of the left hemithorax and shift of mediastinal structures to the left.
--- NOTE | 2021-06-27 09:16 | PC.CHAP ---
Pastoral Care Encounter/Spiritual Assessment Type of Contact [] Declined excelsior machine operator visit [] Patient/Family/Request visit [] Outpatient visit [] Follow-up visit [] Physician referral [] Code/Alert [x] Routine visit [] Staff referral [] Actively dying [] Patient sleeping [] Family support [] [] Out of room [] Palliative care [] [] Receiving care in room [] Pre-surgical visit [] Trauma [] Long length of stay [] ICU visit [x] Other: isolation Relational/Emotional Strength [] Patient feels connected with others/family/visitors/staff [] Distress [] Loneliness/isolation [] Abandonment Spirituality of Patient [] Person of Gela [] Attends Restorationist of their Gela [] Believes in Prayer [] Reads Bible or Jainism materials [] There are Spiritual issues to be addressed Accounts Payable Professional Interventions [x] Prayer [] Active listening [] Non-anxious presence [] Spiritual/emotional support [] Crisis/trauma care [] Spiritual counseling [] Bereavement support [] Provided bereavement packet [] Provided Bible/devotional materials [] Provided toy/stuffed animal, coloring book to patient or family member [] Provided Communion [] Anointing/[place] [] Salvation [x] Completed spiritual assessment [] Other: Impact on Illness or Injury [] Angry [] Fearful [] Anxious [] Often cries [] Exhaustion [] Unable to work [] Unable to attend jehovah's witness [] Unable to walk/stand [] Unable to read [] Unable to drive [] Unable to eat/drink [] Unable to sleep [] Unable to be with family [] Patient intubated [] Other: Summary Time spent with patient
--- NOTE | 2021-06-27 10:30 | PC.NURSE ---
Contacted Dr. Johns and Datar regarding need for additional IV access. Patient has 22g PIID in left acf. Unable to run albumin through this line. DEEPTI Seay attempted IV access with US and unable to obtain additional access. Also contacted Auditor Supervisor to see if any RN available to assess for PICC access.
--- NOTE | 2021-06-27 11:09 | PM.PN ---
Subjective Subjective: Interval history: Patient was seen and examined this morning status post paracentesis 5 L were drained, patient was saturating well on room air Awaiting thoracentesis by IR Patient is not endorsing any chest pain shortness of breath or abdominal pain Did discuss goals of care he is stating full code and wants his family to make further decisions in case he deteriorates Vitals/I&O/Wt Last Vital Signs Temp 98.3 F 06/27/21 08:00 Pulse 86 06/27/21 08:00 Resp 24 H 06/27/21 08:00 BP 100/59 06/27/21 08:00 Pulse Ox 93 06/27/21 08:00 06/26/21 06/27/21 06/27/21 22:59 06:59 14:59 Intake Total 50 / 50 Balance 50 / 50 Weight last 48 hrs Weight 63.503 kg Physical Exam Narrative: EXAM NARRATIVE: Patient was laying comfortably in his bed Generalized anasarca Bilateral lower extremity 2+ pitting edema Saturating well on room Variable S1-S2 Left-sided AICD, skin not sensitive Flat affect Nondistended abdomen status post paracentesis has left-sided peritoneal drain No audible stridor or wheezing Withdrawn affect Data : 06/27/21 03:40 06/27/21 03:40 A&P Assessment and plan (1) Prostate cancer: Status: Acute (2) Cirrhosis of liver: Status: Acute (3) Recurrent left pleural effusion: Status: Acute (4) Dyspnea: Status: Acute (5) Hx of CABG: Status: Acute (6) Hypertension: Status: Acute (7) Dilated cardiomyopathy: Status: Acute (8) ICD (implantable cardioverter-defibrillator) in place: Status: Acute (9) Hypothyroidism: Status: Acute (10) Diabetes mellitus: Status: Acute Additional A&P Information Recurrent left-sided pleural effusion Patient is saturating well on room air No active chest pain shortness of breath Requested ultrasound-guided thoracentesis I will also request adenosine deaminase to rule out tuberculosis QuantiFERON test is pending he will stay in negative pressure room until test results No overnight fever no active signs of sepsis We'll keep him on empirical regimen of antipseudomonal and MRSA coverage, will request nares MRSA Malignancy not ruled out Liver cirrhosis without active signs of encephalopathy Patient is awake and alert Has withdrawn affect Status post 5 L paracentesis, was getting albumin at the time of my evaluation Secondary to poor IV access will request PICC line placement Patient is denying previous history of bleed however he was admitted for hypovolemic shock in [place] he does have portal gastropathy Continue Lasix and spironolactone along lactulose and rifaximin Watch for signs of hepatorenal syndrome currently creatinine is normal In case of worsening of blood pressure would recommend octreotide No signs of SBP meld score 12, for recurrent ascites TIPS? History of CABG dilated cardiomyopathy status post AICD placement with improved ejection fraction Does have generalized anasarca no active chest pain Does not have diabetes: Hemoglobin A1c is 4.5 History of prostate cancer status post treatment Full code Will discuss goals of care with family as well patient is stating that his family should make that decision however wanting us to do chest compressions and intubation if needed he also said if he goes into cardiac arrest his AICD will kick in He does understand the meaning of full code DVT prophylaxis to be resumed from tomorrow Today's plan PICC line placement, status post paracentesis awaiting thoracentesis Attestations Medical Necessity Statement*: Continue medical management will stay until the results of tuberculosis Time Spent in Patient Care: 16 - 35 minutes Coding Level of Care Code Acute Lubrication Servicer for [facility] Fwd Diagnoses Prostate cancer C61 Cirrhosis of liver K74.60 Recurrent left pleural effusion J90 Dyspnea R06.00 Hx of CABG Z95.1 Hypertension I10 Dilated cardiomyopathy I42.0 ICD (implantable cardioverter-defibrillator) in place Z95.810 Hypothyroidism E03.9 Diabetes mellitus E11.9
--- NOTE | 2021-06-27 11:45 | PC.NURSE ---
explained to patient that IV in left arm appears infiltrated and we cannot use it for albumin & magnesium or continuing antibiotics. Patient refused a new IV and staed you are not sticking me with anymore needles. Offered to let another nurse come by to do access. Patient said no one is sticking me . Dr. Johns notified. DEEPTI Kenny came by from the labor contractor to offer assistance with IV. Notified him patient has refused.
[2021-06-27 13:47] LABS: Coronavirus Test Green County Not Detected
[2021-06-27] MEDS: piperacillin-tazobactam 3.375 GM in sodium chloride 0.9% (plus) 50 ML IV ×2 (16:00→23:43)
--- NOTE | 2021-06-27 16:38 | P.PCN_ITS ---
Procedure/Consent Time out: Time Out Performed: Yes Consent: Consent for Procedure: Consent obtained from patient (Patient gave verbal consent and witnessed by RN) Procedure Narrative: Procedure time: 1600 Procedure: Central venous access placement Indication: Difficult IV access and patient need IV medications Furniture And Bedding Inspector(s): Bradley Heard MD Consent: Verbal consent given by patient as witnessed by RN. Placed in chart Time out called. [place] precautions applied. Site: Right femoral vein Catheter: 7 Fr, 20 cm, Triple Lumen Sutured at: 20 cm Anesthesia: 10 cc 1% lidocaine without epinephrine Description: Area prepped with chlorhexidine and draped in a universal sterile manner. The vessel anatomy and patency was examined by ultrasound probe which was covered with sterile probe cover. The needle was inserted into the vessel under ultrasound guidance, after venous blood aspirated the guidewire was inserted through the needle and kept in situ while the needle was removed. Placement of guidewire in the vein and in relation to the adjacent artery was verified by ultrasound. Catheter was then advanced over the guidewire after dilation and guidewire successfully removed.The catheter was sutured to the skin and sterile dressing with chlorhexidine patch placed. Number of attempts:1 Dilator applied: 1, number of Dilations: 1 Placement Verified by: Blood draw from all ports and Ultrasound exam EBL: 5cc Complications: None Ultrasound guidance used: yes Images saved: yes Acute Procedures Epistaxis Control: Time out performed: Yes
[2021-06-27] MEDS: magnesium sulfate premix 2 GM/50 ML PIGGYBACK IV (17:59)
[2021-06-27] MEDS: acetylcysteine 200 mg/mL SDV 4 mL 100 MG INHALATION (19:25)
--- NOTE | 2021-06-27 21:02 | US_ITS ---
WS: [id number] INDICATION: Right pleural effusion TECHNIQUE: Right chest FINDINGS: Ultrasound right chest. Partially visualized abdominal ascites. No significant right pleura l fluid. Pleural fluid is visualized in the left chest on the prior CT June 26, 2021. US/US chest [id number] IMPRESSION: 1. Partially visualized abdominal ascites. No significant RIGHT pleural fluid. 2. Moderate pleural effusion is visualized in the LEFT chest on the prior CT S 2020.
[2021-06-27] MEDS: vancomycin 1,500 MG/300 ML PIGGYBACK 150 MG IV (21:08)
[2021-06-28] VITALS (86 sets, daily range): BP systolic 85–104; BP diastolic 34–48; PULSE 29–100; RESP 14–27; TEMP 36.6; O2SAT 87–93
--- NOTE | 2021-06-28 07:17 | NUR.SHIFT ---
Patient continues to refuse care. Would not allow me to do nose swab for MRSA. Will continue to attempt.
[2021-06-28 07:43] LABS: Basophils % 0.3 %; Eosinophils % 0.3 %; Hematocrit 25.8 % (42.0-52.0); Hemoglobin 8.4 g/dL (11.7-16.6); Lymphocytes # 1.3 10^3/uL (0.8-4.8); Lymphocytes % 38.2 %; Mean Corpuscular HGB Conc 32.6 g/dL (30.0-36.0); Mean Corpuscular Hemoglobin 31.7 pg (28.0-34.0); Mean Corpuscular Volume 97.4 fl (80-94); Mean Platelet Volume 9.3 fL (7.4-10.4); Monocytes # 0.4 10^3/uL (0.2-0.9); Monocytes % 12.2 %; Neutrophils # 1.67 10^3/uL (1.8-7.7); Neutrophils % 48.7 %; Nucleated Red Blood Cells % 0 %; Platelet Count 181 10^3/cmm (130-400); Red Blood Count 2.65 10^6/uL (4.1-5.3); Red Cell Distribution Width 16.4 % (12.1-15.1); White Blood Count 3.4 10^3/uL (4.0-10.0)
[2021-06-28 07:54] LABS: INR 1.81 (0.8-1.2)
--- NOTE | 2021-06-28 08:01 | XRR_ITS ---
PROCEDURE INFORMATION: Exam: XR Chest Exam date and time: 06/28/2021 8:01 AM Age: 76 years old Clinical indication: Condition or disease; Lung condition and disease; Other: RT pleural effusion; Additional info: Atelactasis f/u TECHNIQUE: Imaging protocol: XR of the chest. Views: 1 view. COMPARISON: CR XR chest 1V portable [id number] 06/27/2021 9:12 AM FINDINGS: Tubes, catheters and devices: Pacemaker is present via a left subclavian approach. Lungs: Complete opacification left hemithorax. Volume loss. Stable. Pleural spaces: Unremarkable. No pleural effusion. No pneumothorax. Heart/Mediastinum: Unremarkable. No cardiomegaly. Bones/joints: prior sternotomy. Other findings: Impression.subpulmonic effusion on the right. XR/XR chest 1V portable [id number] IMPRESSION: 1. Complete opacification left hemithorax. Volume loss. Stable. 2. .subpulmonic effusion on the right.
[2021-06-28 08:07] LABS: Alanine Aminotransferase < 5 U/L (0-41); Albumin Level 2.1 g/dL (3.5-5.2); Alkaline Phosphatase 131 IU/L (40-130); Anion Gap 12.4 (5-19); Aspartate Amino Transferase 8 U/L (0-40); Blood Urea Nitrogen 16 mg/dL (8-23); Calcium 7.9 mg/dL (8.5-10.5); Carbon Dioxide 20 mmol/L (22-29); Chloride 108 mmol/L (98-107); Globulin 2.6 g/dL (1.3-4.6); Glucose 101 mg/dL (65-115); Magnesium 1.8 mg/dL (1.7-2.3); Osmolality Calculated 285 mOsm/kg (285-295); Phosphorus 2.5 mg/dL (2.5-4.5); Potassium 3.4 mmol/L (3.5-5.1); Sodium 137 mmol/L (136-145); Total Protein 4.7 g/dL (6.6-8.7)
[2021-06-28] MEDS: spironolactone 25 mg Tablet 100 MG PO (10:19)
[2021-06-28] MEDS: sucralfate 1 gm Tablet PO ×3 (10:20→19:05)
[2021-06-28] MEDS: midodrine 5 mg TABLET PO ×3 (10:20→20:45)
[2021-06-28] MEDS: FUROsemide 40 mg Tablet PO (10:21)
[2021-06-28] MEDS: levothyroxine 50 mcg Tablet PO (10:21)
[2021-06-28] MEDS: allopurinol 100 mg Tablet PO (10:21)
[2021-06-28] MEDS: enoxaparin 40 mg/0.4 mL Syringe SUBCUT (10:22)
[2021-06-28] MEDS: atorvastatin 40 mg Tablet PO (10:22)
[2021-06-28] MEDS: pantoprazole DR 40 mg Tablet PO (10:22)
[2021-06-28] MEDS: folic acid 1 mg Tablet PO (10:22)
[2021-06-28] MEDS: aspirin 81 mg Chew Tablet PO (10:22)
[2021-06-28] MEDS: lactulose oral liq 20 gm/30 mL UDC PO ×2 (10:23→14:04)
[2021-06-28] MEDS: piperacillin-tazobactam 3.375 GM in sodium chloride 0.9% (plus) 50 ML IV ×3 (10:23→23:27)
--- NOTE | 2021-06-28 11:21 | P.PN_ITS ---
Subjective Subjective: Interval history: Repeat chest x-ray did not show any improvement patient has been refusing his treatments including chest vest, not cooperating with the staff for his daily medications as well This morning his blood pressure was soft systolic blood pressure 85mmhg Noted to her is planning for bronchoscopy tomorrow morning, patient is agreeable for the procedure, will inform GI Lab, nurse Darryl notified Patient is stating that his blood pressures remained soft, will give him 1 bag of albumin Covid PCR negative TB test pending Vitals/I&O/Wt Last Vital Signs Temp 98 F 06/27/21 19:10 Pulse 83 06/28/21 08:00 Resp 25 H 06/28/21 08:00 BP 85/34 06/28/21 08:00 Pulse Ox 91 06/28/21 08:00 06/27/21 06/28/21 06/28/21 22:59 06:59 14:59 Intake Total 640 / 1539 50 / 1589 Balance 640 / 1539 50 / 1589 Weight last 48 hrs Weight 63.503 kg Physical Exam Narrative: EXAM NARRATIVE: Patient laying comfortably in his bed Very lethargic and fatigued stating he does not get out of bed Silent left-sided chest No rhonchi or crackles on right chest auscultation Patient is breathing without any discomfort he seems stable at room air Soft abdomen no distention noted peritoneal drain has been removed EOMI, PERRLA Multiple petechiae and bruises of extremities Right femoral vein triple-lumen catheter in place AICD pocket without any sensitization Lower extremity edema Data : 06/28/21 07:32 06/28/21 07:32 Micro: Microbiology 06/27/21 06:40 Gram Stain - Final Ascites Fluid A&P Assessment and plan (1) Atelectasis of left lung: Status: Acute (2) Hydrothorax: Status: Acute (3) Ascites due to alcoholic cirrhosis: Status: Acute (4) Protein-calorie malnutrition, severe: Status: Acute (5) Prostate cancer: Status: Acute (6) Cirrhosis of liver: Status: Acute Qualifiers: Ascites presence: with ascites Hepatic cirrhosis type: alcoholic c irrhosis Qualified Code(s): K70.31 - Alcoholic cirrhosis of liver with ascites (7) Recurrent left pleural effusion: Status: Acute (8) Hx of CABG: Status: Acute (9) Dilated cardiomyopathy: Status: Acute (10) ICD (implantable cardioverter-defibrillator) in place: Status: Acute Additional A&P Information Complete whiteout of left lung Atelectasis No drainable fluid noted on ultrasound Concern for mucous plug, this morning no improvement in chest x-ray plan for bro nchoscopy tomorrow, patient did have one episode of emesis at the outside facility which might have contributed to this Patient is not cooperating with the staff for chest vest or Mucomyst QuantiFERON test pending Covid PCR negative Antibiotic coverage broadened to cover anaerobic microorganisms with Zosyn along vancomycin MRSA nares pending Alcohol related liver cirrhosis Severe protein calorie malnourishment No active hepatic encephalopathy His systolic blood pressure remains soft we will give another dose of albumin today We will hold off on Lasix and spironolactone dose today continue lactulose and rifaximin Continue midodrine Dilated cardiomyopathy without acute exacerbation AICD in place Hemoglobin A1c 4.5 Prostate cancer status post treatment Full code Lovenox DVT prophylaxis, will hold in anticipation of bronchoscopy tomorrow Right femoral vein triple-lumen catheter placed by Dr. Heard on 06/27 Attestations Medical Necessity Statement*: Anticipating stay in the hospital until we see TB results Time Spent in Patient Care: 16 - 35 minutes Coding Level of Care Code Acute Piece Meat Trimmer for Chg Fwd Diagnoses Atelectasis of left lung J98.11 Hydrothorax J94.8 Ascites due to alcoholic cirrhosis K70.31 Protein-calorie malnutrition, severe E43 Prostate cancer C61 Cirrhosis of liver K70.31 Ascites presence: with ascites Hepatic cirrhosis type: alcoholic cirrhosis Recurrent left pleural effusion J90 Hx of CABG Z95.1 Dilated cardiomyopathy I42.0 ICD (implantable cardioverter-defibrillator) in place Z95.810
--- NOTE | 2021-06-28 11:59 | PC.NURSE ---
Pt refused most of his medications. Pt is very uncooperative with care. Pt has no c/o pain or discomfort at the present time. No needs voiced. Call light in reach. Will continue to monitor.
[2021-06-28] MEDS: albumin 12.5 GM/250 ML VIAL IV (14:03)
[2021-06-28] MEDS: acetylcysteine 200 mg/mL SDV 4 mL 100 MG INHALATION (20:50)
[2021-06-28] MEDS: vancomycin 1,500 MG/300 ML PIGGYBACK 150 MG IV (21:06)
--- NOTE | 2021-06-28 23:36 | PC.NURSE ---
Patient refused lactulose and sucralate. Educated on importance of lactulose to decrease ammonia levels. Patient still refused. Will continue to monitor.
[2021-06-29] VITALS (107 sets, daily range): BP systolic 79–109; BP diastolic 35–62; PULSE 32–99; RESP 12–32; TEMP 36.2–37.1; O2SAT 83–98
--- NOTE | 2021-06-29 02:29 | PC.NURSE ---
Patient argumentative whenever entering room by myself for nurse aide. Refused to change positions when this RN went in the room. Will continue to monitor.
--- NOTE | 2021-06-29 06:06 | PC.NURSE ---
Frequent safety and comfort rounds continue. Orders and/or nursing care completed as indicated. Patient monitored for response to intervention and treatment(s). Education provided includes importance of taking lactulose for ammonia levels. Patient and/or artist's representative verbalizes understanding. Will continue to monitor.
[2021-06-29 07:53] LABS: Eosinophils % 0.6 %; Hematocrit 26.3 % (42.0-52.0); Hemoglobin 8.5 g/dL (11.7-16.6); Lymphocytes # 1.1 10^3/uL (0.8-4.8); Lymphocytes % 33.9 %; Mean Corpuscular HGB Conc 32.3 g/dL (30.0-36.0); Mean Corpuscular Hemoglobin 31.4 pg (28.0-34.0); Mean Platelet Volume 9.4 fL (7.4-10.4); Monocytes # 0.4 10^3/uL (0.2-0.9); Monocytes % 11.2 %; Neutrophils # 1.67 10^3/uL (1.8-7.7); Neutrophils % 53.3 %; Nucleated Red Blood Cells % 0 %; Platelet Count 175 10^3/cmm (130-400); Red Blood Count 2.71 10^6/uL (4.1-5.3); Red Cell Distribution Width 16.2 % (12.1-15.1); White Blood Count 3.1 10^3/uL (4.0-10.0)
[2021-06-29 08:17] LABS: INR 1.73 (0.8-1.2)
[2021-06-29 08:21] LABS: Alanine Aminotransferase < 5 U/L (0-41); Albumin Level 2.2 g/dL (3.5-5.2); Alkaline Phosphatase 118 IU/L (40-130); Anion Gap 12.1 (5-19); Aspartate Amino Transferase 9 U/L (0-40); Blood Urea Nitrogen 19 mg/dL (8-23); Calcium 7.7 mg/dL (8.5-10.5); Carbon Dioxide 21 mmol/L (22-29); Chloride 105 mmol/L (98-107); Globulin 2.7 g/dL (1.3-4.6); Glucose 98 mg/dL (65-115); Magnesium 1.7 mg/dL (1.7-2.3); Osmolality Calculated 282 mOsm/kg (285-295); Phosphorus 2.7 mg/dL (2.5-4.5); Potassium 3.1 mmol/L (3.5-5.1); Sodium 135 mmol/L (136-145); Total Bilirubin 0.8 mg/dL (0.15-1.2); Total Protein 4.9 g/dL (6.6-8.7)
[2021-06-29] MEDS: sodium chloride 0.9% 1,000 ML 30 ML IV (08:54)
--- NOTE | 2021-06-29 09:01 | PM.PN ---
Subjective Subjective: Interval history: - Seen patient at bedside today morning -Patient was uncooperative and noncompliant with chest vest and Mucomyst nebulizations -He agreed for bronchoscopy for airway inspection and clearance -Plan is to do bronchoscopy for airway inspection and and clearance of mucus -If there is an endobronchial lesion-I will obtain biopsies and explained patient about complications like bleeding; Today INR 1.73- will give FFP -Labs and imaging reviewed Medications: Reviewed: Yes Vitals/I&O/Wt Last Vital Signs Temp 97.8 F 06/29/21 08:40 Pulse 71 06/29/21 08:40 Resp 18 06/29/21 08:40 BP 89/52 06/29/21 08:40 Pulse Ox 95 06/29/21 08:40 06/28/21 06/29/21 06/29/21 22:59 06:59 14:59 Intake Total 610 / 660 100 / 760 Balance 610 / 660 100 / 760 Physical Exam Narrative: EXAM NARRATIVE: General: Thin cachectic elderly male, alert, NAD HEENT: conj clear, EOMI, PERRL, mmm, Neck: supple, no meningismus Heme: no cervical LAP Pulmonary: Reduced breath sounds on left lung Cardiovascular: rrr, nl s1s2, no mrg Abdomen: Distended, tender, bowel sounds positive Extremities: pulses +, no edema, no c/c : no CVA tenderness Skin: intact, no rash MSK: no back or neck pain Neurologic: grossly intact Data : 06/29/21 07:38 06/29/21 07:38 Other Labs: Laboratory Results WBC 3.1 10^3/uL (4.0-10.0) L 06/29/21 07:38 RBC 2.71 10^6/uL (4.1-5.3) L 06/29/21 07:38 Hgb 8.5 g/dL (11.7-16.6) L 06/29/21 07:38 Hct 26.3 % (42.0-52.0) L 06/29/21 07:38 MCV 97.0 fl (80-94) H 06/29/21 07:38 MCH 31.4 pg (28.0-34.0) 06/29/21 07:38 MCHC 32.3 g/dL (30.0-36.0) 06/29/21 07:38 RDW 16.2 % (12.1-15.1) H 06/29/21 07:38 Plt Count 175 10^3/cmm (130-400) 06/29/21 07:38 MPV 9.4 fL (7.4-10.4) 06/29/21 07:38 Neut % (Auto) 53.3 % 06/29/21 07:38 Lymph % (Auto) 33.9 % 06/29/21 07:38 Wheeler % (Auto) 11.2 % 06/29/21 07:38 Eos % (Auto) 0.6 % 06/29/21 07:38 Baso % (Auto) 1.0 % 06/29/21 07:38 Neut # (Auto) 1.67 10^3/uL (1.8-7.7) L 06/29/21 07:38 Lymph # (Auto) 1.1 10^3/uL (0.8-4.8) 06/29/21 07:38 Wheeler # (Auto) 0.4 10^3/uL (0.2-0.9) 06/29/21 07:38 Eos # (Auto) 0.0 10^3/uL (0.0-0.8) 06/29/21 07:38 Baso # (Auto) 0.0 10^3/uL (0.0-0.1) 06/29/21 07:38 Nucleated RBC % (auto) 0 % 06/29/21 07:38 Nucleated RBCs # 0.0 /100WBC 06/29/21 07:38 PT 20.70 SECONDS (12.1-14.9) H 06/29/21 07:38 INR 1.73 (0.8-1.2) H 06/29/21 07:38 APTT 44.5 SECONDS (23.9-36.7) H 06/26/21 14:15 Sodium 135 mmol/L (136-145) L 06/29/21 07:38 Potassium 3.1 mmol/L (3.5-5.1) L 06/29/21 07:38 Chloride 105 mmol/L (98-107) 06/29/21 07:38 Carbon Dioxide 21 mmol/L (22-29) L 06/29/21 07:38 Anion Gap 12.1 (5-19) 06/29/21 07:38 BUN 19 mg/dL (8-23) 06/29/21 07:38 Creatinine 1.1 mg/dL (0.7-1.2) 06/29/21 07:38 GFR Calculation Not Reportable 06/29/21 07:38 Glucose 98 mg/dL (65-115) 06/29/21 07:38 Estimat Average Glucose 82 06/27/21 03:40 Hemoglobin A1c 4.5 % (4.0-6.0) 06/27/21 03:40 Calculated Osmolality 282 mOsm/kg (285-295) L 06/29/21 07:38 Calcium 7.7 mg/dL (8.5-10.5) L 06/29/21 07:38 Phosphorus 2.7 mg/dL (2.5-4.5) 06/29/21 07:38 Magnesium 1.7 mg/dL (1.7-2.3) 06/29/21 07:38 Total Bilirubin 0.8 mg/dL (0.15-1.2) 06/29/21 07:38 AST 9 U/L (0-40) 06/29/21 07:38 ALT < 5 U/L (0-41) 06/29/21 07:38 Alkaline Phosphatase 118 IU/L (40-130) 06/29/21 07:38 Ammonia 34 umol/L (16-60) 06/26/21 20:08 Lactate Dehydrogenase 225 U/L (135-225) 06/27/21 03:40 Total Protein 4.9 g/dL (6.6-8.7) L 06/29/21 07:38 Albumin 2.2 g/dL (3.5-5.2) L 06/29/21 07:38 Globulin 2.7 g/dL (1.3-4.6) 06/29/21 07:38 Procalcitonin 0.27 ng/mL (0-0.5) 06/26/21 20:08 Peritoneal Color Pale yellow (Pale Yellow) 06/27/21 06:40 Peritoneal Appearance Clear (Clear) 06/27/21 06:40 Peritoneal pH 8.0 06/27/21 06:40 Peritoneal Spec [place] 1.010 06/27/21 06:40 Peritoneal WBC 37 /uL 06/27/21 06:40 Peritoneal RBC 0 10^3/uL 06/27/21 06:40 Periton Mononu # Auto 0.036 10^3/uL 06/27/21 06:40 Mononuclear WBCs % 97.300 % 06/27/21 06:40 Polynuclear WBCs % 2.700 % 06/27/21 06:40 Perit Polynuc WBCs # 0.001 10^3/uL 06/27/21 06:40 Peritoneal Tot Protein 2.1 g/dL 06/27/21 06:40 Peritoneal Albumin 1.1 g/dL 06/27/21 06:40 Peritoneal LDH 68.0 U/L 06/27/21 06:40 Peritoneal Glucose 86.0 mg/dL 06/27/21 06:40 Peritoneal Amylase 24 U/L (88-109) L 06/27/21 06:40 Peritoneal Triglycerid 26 mg/dL 06/27/21 06:40 Nasal/Oral COVID-19 PCR Not detected 06/26/21 14:[address] 06/26/21 15:31 IMPRESSION: 1. Large left pleural effusion with adjacent compressive atelectasis and or pneumonia. There is definitely a degree of atelectasis involved in the consolidation as there is a leftward mediastinal shift. Underlying neoplasm in the region of consolidation cannot be excluded. 2. There are scattered regions of right subpleural interstitial thickening, greatest at the lung base, suggestive of pulmonary fibrosis. Radiation Dose CTDIVOL = (mGy): DLP = 717.36 (mGy-cm) Chest Ultrasound 06/27/21 21:02 IMPRESSION: 1. Partially visualized abdominal ascites. No significant RIGHT pleural fluid. 2. Moderate pleural effusion is visualized in the LEFT chest on the prior CT June 26, 2021. Chest X-Ray 06/28/21 08:01 IMPRESSION: 1. Complete opacification left hemithorax. Volume loss. Stable. 2. .subpulmonic effusion on the right. Micro: Microbiology 06/27/21 06:40 Gram Stain - Final Ascites Fluid Body Fluid Culture - Preliminary A&P Assessment and plan (1) Dyspnea: Status: Acute Qualifiers: Dyspnea type: dyspnea on exertion Qualified Code(s): R06.00 - Dyspnea, unspecified (2) Recurrent left pleural effusion: Status: Acute (3) Ascites due to alcoholic cirrhosis: Status: Acute (4) Atelectasis of left lung: Status: Acute (5) Hydrothorax: Status: Acute (6) Protein-calorie malnutrition, severe: Status: Acute (7) Prostate cancer: Status: Acute (8) Hx of CABG: Status: Acute (9) ICD (implantable cardioverter-defibrillator) in place: Status: Acute #Cough with brownish sputum-suspicious for HCAP/aspiration pneumonia #Recurrent left pleural effusion and coexisting atelectasis of left lung-possible mucous plug #Effusion secondary to atelectasis vs hepatic hydrothorax in patient with alcoholic cirrhosis & ascites #Patient with history of CABG 1991 s/p AICD #History of prostate cancer -Hemodynamically stable and currently on 2 L saturating 94% -Bedside ultrasound did not show safe pocket to drain left pleural effusion but massive ascites -S/p paracentesis 06/27/2021-6700 cc straw-colored ascitic fluid drained; transudative fluid negative for SBP: Cultures pending - child Fernandez score 10, meld score 12 and history of hepatic encephalopathy, history of prostate cancer, given advanced age-poor candidate for TIPS and liver transplant -Mentation intact-ammonia 34-currently on lactulose with target BM 2 to 3/day -He was taking only Lasix 40 at [facility] - recommended sodium restriction<2 g/day; Lasix 40 mg daily and spironolactone 100 mg daily; -Given 1 dose of albumin after large volume paracentesis -Chest physiotherapy/Mucomyst/hypertonic saline/DuoNeb nebulization to clear pulmonary secretions-but patient has been noncompliant -Currently on airborne isolation and under investigation to rule out TB as per [facility] request; clinically low suspicion for TB-QuantiFERON testing pending; peritoneal fluid ADA pending -Covid PCR negative -Chest imaging-suspicious for underlying left lung pneumonia-currently covered with vancomycin and Zosyn to cover for HCAP/aspiration pneumonia as patient was recently discharged from outside hospital -Recommended to send for sputum culture, bacterial antigens and Legionella antigen, MRSA nares-but patient noncooperative to give MRSA swab and urine samples - Echo 06/18/21 in [place] EF 60-65%, RV fx normal, mild to moderate MVR, RV systolic pressure 22. - VQ scan 06/17/2021: In [place] negative low probability for pulmonary embolism -We'll proceed with bronchoscopy for airway clearance; and possible endobronchial biopsies-all risks including pneumothorax, bleeding, possibility of prolonged intubation were explained in detail to the patient and he agreed with the procedure Medical condition explained to patient and he verbalized understanding and agreed with the plan Recommendations conveyed to hospitalist, RN, RT taking care of the patient Attestations Medical Necessity Statement*: defer to the hosptitalist Time Spent in Patient Care: Greater than 35 minutes (>than 50% of time spent in counselling and/or direct pt care on unit). Critical Care Time: Critical Care Time (min): 45 Coding Level of Care Code Established Pt Acute Bit Sharpener for Chg Fwd Patient Type Established History Comprehensive Exam Comprehensive Medical Decision Making Moderate Complexity Diagnoses Dyspnea R06.00 Dyspnea type: dyspnea on exertion Recurrent left pleural effusion J90 Ascites due to alcoholic cirrhosis K70.31 Atelectasis of left lung J98.11 Hydrothorax J94.8 Protein-calorie malnutrition, severe E43 Prostate cancer C61 Hx of CABG Z95.1 ICD (implantable cardioverter-defibrillator) in place Z95.810 Time Spent (min) 45
[2021-06-29] MEDS: lidocaine 1% INJ 20 mL XX (09:23)
--- NOTE | 2021-06-29 09:30 | PC.NURSE ---
Pt lying in bed awake talking to staff. Pt refused lactulose. Education was given on the use and importance of medication. Pt continued to refuse Lactulose. Pt had no c/o pain or discomfort at the present time. No needs voiced. Call light in reach. Will continued to monitor.
--- NOTE | 2021-06-29 09:37 | XR_ITS ---
WS: [id number] Portable AP supine chest, 06/29/2021 Clinical Data: pneumonia Comparison: Portable chest, 06/28/2021. Findings: There is slight improvement in opacification of the left lung with a reduction in the atele ctasis and effusion. There is still a right pleural effusion. The heart size is not changed. The perm anent pacemaker and midline sternotomy sutures remain the same. XR/XR chest 1V portable [id number] Impression: 1. Slight improvement in opacification of the left lung with probable reduction in atelectasis and effusion. 2. No change in small right pleural effusion.
--- NOTE | 2021-06-29 09:38 | PM.OP ---
Operative Report Date of procedure: June 29, 2021 Procedure: Flexible bronchoscopy for airway inspection and airway clearance Pre-Operative Diagnosis: Mucous plugging secondary to aspiration pneumonia Post-Operative Diagnosis: Same Indication: Left lung atelectasis Start time: 9: 23 AM End time: 9:31 am Anesthesia: General Pre-procedure Evaluation: Patient was evaluated clinically and ancillary testing reviewed. The risk of having active MTB infection is very low in my clinical judgement. ASA: 3 Malampati score: unable to evaluate due to presence of endotracheal tube Consent: Consents were obtained from patient and placed in the chart. Procedure Details: Time out was performed by the procedure team and nursing staff. Vent support maintained on Fio2 100. The bronchoscope was introduced through the LMA. A bronchoscopic airway exam was performed to evaluate the visible tracheobronchial tree to the segmental level. Summary of Significant Findings: -Bronchoscope passed through LMA and mobile vocal cords visualized.. The scope was passed further to visualize trachea noted to be normal. Main eric visualized which was sharp and normal. Then the scope was passed through the right bronchial tree was assessed to include the right mainstem bronchus, RBI, and RUL/RML/RLL bronchi to the segmental and subsegmental levels. No active bleeding noted. Mucosa appeared normal. Secretions Then the scope was passed through left bronchial tree and assessed to include the left mainstem bronchus, OMER, Lingula, and LLL bronchi to the segmental and subsegmental level. There is a big mucous plug in the left mainstem which was suction right away. Endobronchial mucosa on the left lower lobe appeared significantly edematous. There were clear secretions throughout all the left lung subsegments which were suctioned. No evidence of bleeding noted. The bronchoscope was then removed and the procedure terminated. Estimated Blood Loss: None Specimens: Bronchoalveolar lavage was taken from left lower lobe and sent for microbiology cultures, AFB smear and culture and cytology Complications:None; patient tolerated the procedure well. Disposition: Patient remains hemodynamically stable, will be transferred to the CSU Bradley Heard MD Pulmonary critical Care Medicine [facility]
--- NOTE | 2021-06-29 09:46 | P.ANESASSM_ITS ---
Pre-Anesthetic Assessment Pre-Anesthetic Assessment: Height/Weight: Height 1.65 m Weight 63.503 kg Temp Pulse Resp BP Pulse Ox 97.8 F 71 18 89/52 95 06/29/21 08:40 06/29/21 08:40 06/29/21 08:40 06/29/21 08:40 06/29/21 08:40 Proposed Procedure: Operation Date: 06/29/21 09:10 Proposed Procedures p Bronchoscopy(Not Applicable) - Bradley Heard MD Was Beta Brad taken within 24 hours: N/A Was Clonidine taken within 24 hours: N/A Last intake: Intake Last Liquid Date 06/28/21 Last Liquid Time 23:00 Last Solid Date 06/28/21 Last Solid Time 21:00 Social: Social History: No alcohol and No tobacco Exam: Pre-Anes Outpt Exam: alert, oriented x 3 and regular rate & rhythm Airway: Submandibular: WNL Cervical ROM: WNL MP: 2 Dentition: False (upper) Additional comments: One tooth on lower arch Pulmonary: Pulmonary: COPD, SOB and URI CV/HEM: CV/HEM: Anemia, CAD (CABG) and CHF (EF 50%) Comments: AICD Hepatic: Hepatic: Cirrohsis GI: GI: GERD Metabolic: Metabolic: DM, Hyperlipidemia and Thyroid Anesthetic Plan: ASA status: 4 Anesthesia: General Risk of > 500 ml blood loss (7ml/kg in children): No Meds/Allergies Current Medications: Current Medications Generic Name Dose Route Start Last Admin Trade Name Freq PRN Reason Stop Dose Admin Acetylcysteine 100 mg 06/27/21 16:00 06/29/21 02:17 Acetylcysteine 2 00 Mg/Ml Sdv 4 Ml INHALATION Not Given Q4H.RESPIRATORY S CH Allopurinol 100 mg 06/27/21 09:00 06/28/21 10:21 Allopurinol 100 Mg Tablet PO 100 mg DAILY ASIA Administration Aspirin 81 mg 06/27/21 09:00 06/28/21 10:22 Aspirin 81 Mg Ch ew Tablet PO 81 mg DAILY ASIA Administration Atorvastatin Calci um 40 mg 06/27/21 09:00 06/28/21 10:22 Atorvastatin 40 Mg Tablet PO 40 mg DAILY ASIA Administration Enoxaparin Sodium 40 mg 06/28/21 09:00 06/28/21 10:22 Enoxaparin 40 Mg /0.4 Ml Syringe SUBCUT 40 mg Q24H ASIA Administration Folic Acid 1 mg 06/27/21 09:00 06/28/21 10:22 Folic Acid 1 Mg Tablet PO 1 mg DAILY ASIA Administration Furosemide 40 mg 06/27/21 09:00 06/28/21 10:21 Furosemide 40 Mg Tablet PO 40 mg DAILY ASIA Administration Vancomycin/PEG/NAD A/Lysine/Water 1,500 mg in 300 m ls @ 150 mls/hr 06/26/21 22:00 06/28/21 21:06 Vancocin IV 150 mls/hr Q24H ASIA Administration Piperacillin Sod/T azobactam 50 mls @ 12.5 mls /hr 06/27/21 16:00 06/29/21 05:16 Sod 3.375 gm/ So dium Chloride IV Infused Q8H ASIA Infusion Protocol Sodium Chloride 1,000 mls @ 30 ml s/hr 06/29/21 08:45 06/29/21 08:54 Sodium Chloride 0.9% IV 06/30/21 08:44 30 mls/hr .Q24H ASIA Administration Lactulose 20 gm 06/26/21 21:02 06/29/21 05:41 Lactulose Oral L iq 20 Gm/30 Ml Udc PO Not Given Q6H ASIA Protocol Levothyroxine Sodi um 50 mcg 06/27/21 09:00 06/28/21 10:21 Levothyroxine 50 Mcg Tablet PO 50 mcg DAILY ASIA Administration Midodrine 5 mg 06/26/21 21:00 06/28/21 20:45 Midodrine 5 Mg T ablet PO 5 mg TID ASIA Administration Pantoprazole Sodiu m 40 mg 06/27/21 09:00 06/28/21 10:[address] 40 Mg Tablet PO 40 mg DAILY ASIA Administration Rifaximin 550 mg 06/27/21 09:00 06/28/21 19:05 Rifaximin 550 Mg Tablet PO 550 mg BID ASIA Administration Protocol Spironolactone 100 mg 06/27/21 09:00 06/28/21 10:19 Spironolactone 2 5 Mg Tablet PO 100 mg DAILY ASIA Administration Sucralfate 1 gm 06/26/21 21:00 06/28/21 20:45 Sucralfate 1 Gm Tablet PO Not Given QID [facility] Vitamin D 1,000 unit 06/27/21 09:00 06/28/21 13:40 Cholecalciferol (Vitamin D3) 1,000 Unit Tablet PO Not Given DAILY ASIA PFSH Anesthesia PFSH: Medical History Cirrhosis of liver Diabetes mellitus Dilated cardiomyopathy Dyspnea Hepatic encephalopathy Hypertension Hypothyroidism ICD (implantable cardioverter-defibrillator) in place Prostate cancer Recurrent left pleural effusion Surgical History Hx of CABG Knee joint replacement status Social History Smoking and tobacco status: former smoker Quit status (tobacco): has quit using tobacco Alcohol intake: former Desire information about alcohol rehabilitation?: No Other details last alcohol use: 1 year prior Substance/Drug Use: never Lives independently: No Household members: spouse Current gender identity: Male Data Anesthesia CBC & Chem 7: 06/29/21 07:38 06/29/21 07:38 Other Labs: Laboratory Results - last 48 hr 06/26/21 06/28/21 06/28/21 14:00 07:32 07:32 WBC 3.4 L RBC 2.65 L Hgb 8.4 L Hct 25.8 L MCV 97.4 H D MCH 31.7 MCHC 32.6 D RDW 16.4 H Plt Count 181 MPV 9.3 Neut % (Auto) 48.7 Lymph % (Auto) 38.2 Foard % (Auto) 12.2 Eos % (Auto) 0.3 Baso % (Auto) 0.3 Neut # (Auto) 1.67 L Lymph # (Auto) 1.3 Foard # (Auto) 0.4 Eos # (Auto) 0.0 Baso # (Auto) 0.0 Nucleated RBC % (auto) 0 Nucleated RBCs # 0.0 PT 21.40 H INR 1.81 H Sodium Potassium Chloride Carbon Dioxide Anion Gap BUN Creatinine GFR Calculation Glucose Calculated Osmolality Calcium Phosphorus Magnesium Total Bilirubin AST ALT Alkaline Phosphatase Total Protein Albumin Globulin Nasal/Oral COVID-19 PCR Not detected 06/28/21 06/29/21 06/29/21 07:32 07:38 07:38 WBC 3.1 L RBC 2.71 L Hgb 8.5 L Hct 26.3 L MCV 97.0 H MCH 31.4 MCHC 32.3 RDW 16.2 H Plt Count 175 MPV 9.4 Neut % (Auto) 53.3 Lymph % (Auto) 33.9 Foard % (Auto) 11.2 Eos % (Auto) 0.6 Baso % (Auto) 1.0 Neut # (Auto) 1.67 L Lymph # (Auto) 1.1 Foard # (Auto) 0.4 Eos # (Auto) 0.0 Baso # (Auto) 0.0 Nucleated RBC % (auto) 0 Nucleated RBCs # 0.0 PT 20.70 H INR 1.73 H Sodium 137 Potassium 3.4 L Chloride 108 H Carbon Dioxide 20 L Anion Gap 12.4 BUN 16 Creatinine 0.9 GFR Calculation Not Reportable Glucose 101 Calculated Osmolality 285 Calcium 7.9 L Phosphorus 2.5 Magnesium 1.8 Total Bilirubin 1.0 AST 8 ALT < 5 Alkaline Phosphatase 131 H Total Protein 4.7 L Albumin 2.1 L Globulin 2.6 Nasal/Oral COVID-19 PCR 06/29/21 07:38 WBC RBC Hgb Hct MCV MCH MCHC RDW Plt Count MPV Neut % (Auto) Lymph % (Auto) Foard % (Auto) Eos % (Auto) Baso % (Auto) Neut # (Auto) Lymph # (Auto) Foard # (Auto) Eos # (Auto) Baso # (Auto) Nucleated RBC % (auto) Nucleated RBCs # PT INR Sodium 135 L Potassium 3.1 L Chloride 105 Carbon Dioxide 21 L Anion Gap 12.1 BUN 19 Creatinine 1.1 GFR Calculation Not Reportable Glucose 98 Calculated Osmolality 282 L Calcium 7.7 L Phosphorus 2.7 Magnesium 1.7 Total Bilirubin 0.8 AST 9 ALT < 5 Alkaline Phosphatase 118 Total Protein 4.9 L Albumin 2.2 L Globulin 2.7 Nasal/Oral COVID-19 PCR Micro: Microbiology 06/27/21 06:40 Gram Stain - Final Ascites Fluid Body Fluid Culture - Preliminary Cardiac Studies: No Data to Display
--- NOTE | 2021-06-29 10:25 | PC.NUTR ---
Addendum entered by Sheryl Law 06/29/21 13:23: Clarified further per nurse Darryl--pt prefers vanilla, and would try to drink QID. Will send 1 with breakfast and lunch, and 2 with supper. Addendum entered by Sheryl Law 06/29/21 10:26: noted below supplement to provided added when no longer NPO Original Note: Nutrition assessment completed for MST score of 4. Will add strawberry Ensure Plus with all meals. Recommend to encourage po intakes of meals/supplements and provide preferences as available to encourage intake. Recommend consideration of liberalizing diet to Regular when advanced to promote po intakes. See full RD assessment for further details.
--- NOTE | 2021-06-29 10:37 | P.PN_ITS ---
Subjective Subjective: Interval history: Patient did receive 1 unit of albumin yesterday systolic blood pressure low 90s mean arterial pressure 66 mmHg, will give 1 dose of albumin today as well TB test is pending Status post bronchoscopy with removal of mucous plug from left main bronchus, repeat chest x-ray shows improved variation of left apical lung zone Status post bronchoscopy on 5 L successfully extubated without any complications Vitals/I&O/Wt Last Vital Signs Temp 97.2 F L 06/29/21 09:53 Pulse 76 06/29/21 09:53 Resp 16 06/29/21 09:53 BP 88/54 06/29/21 09:53 Pulse Ox 98 06/29/21 09:53 06/28/21 06/29/21 06/29/21 22:59 06:59 14:59 Intake Total 610 / 660 100 / 760 1200 / 1200 Output Total 2 / Balance 610 / 660 100 / 760 1198 / 1198 Physical Exam Narrative: EXAM NARRATIVE: This morning patient was saturating well on room air before bronchoscopy Did not complain of active chest pain or shortness of breath Diminished left-sided breath sounds Lower extremity edema Abdomen without distention no signs of peritonitis EOMI, PERRLA He does have blood pressure cuff size 10 on his left arm Patient does complain of pain with any point of contact anywhere on his body Data : 06/29/21 07:38 06/29/21 07:38 Micro: Microbiology 06/27/21 06:40 Gram Stain - Final Ascites Fluid Body Fluid Culture - Preliminary A&P Assessment and plan (1) Atelectasis of left lung: Status: Acute (2) Ascites due to alcoholic cirrhosis: Status: Acute (3) Protein-calorie malnutrition, severe: Status: Acute (4) Prostate cancer: Status: Acute (5) Cirrhosis of liver: Status: Acute Qualifiers: Ascites presence: with ascites Hepatic cirrhosis type: alcoholic cirrhosis Qualified Code(s): K70.31 - Alcoholic cirrhosis of liver with ascites (6) Recurrent left pleural effusion: Status: Acute Additional A&P Information Left lung atelectasis Bronchoscopy 06/29 Improved after bronchoscopy, left main bronchus mucous plug retrieved during bronchoscopy TB test is pending Covid PCR negative Peritoneal adenosine deaminase is pending as well No fever no worsening of leukocytosis Low risk to contract TB We will wait until we see negative results to send him back to his care home NHC Wean off oxygen prebronchoscopy he was saturating well on room air Discontinue vancomycin and Zosyn for aspiration pneumonia/pneumonitis coverage I would add Augmentin, he has remained afebrile Alcoholic liver cirrhosis status drainage, received multiple dose of albumin secondary to low blood pressure, I will give him another dose of albumin today No active signs of hepatic encephalopathy No acute decompensation Continue lactulose, rifaximin Holding Lasix Physical deconditioning: Patient does not get out of bed at all and is not cooperative, refuses medications sometimes as well Diet advanced post bronchoscopy Full code Dilated cardiomyopathy AICD in place no acute decompensation DVT prophylaxis start Lovenox from today Attestations Medical Necessity Statement*: Awaiting TB results Time Spent in Patient Care: 16 - 35 minutes Coding Level of Care Code 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
[2021-06-29] MEDS: albumin 12.5 GM/250 ML VIAL IV (11:56)
[2021-06-29] MEDS: methylphenidate 10 mg Tablet 5 MG PO (12:02)
--- NOTE | 2021-06-29 13:56 | ANE.PACU2 ---
Inpatient post-anesthesia follow up: Airway intact: Yes Vital signs: Temperature 98.2 F Pulse Rate [Monito r] 98 Pulse Rate 84 Respiratory Rate 21 Blood Pressure [Le ft Arm] 107/71 Blood Pressure 94/60 Pulse Oximetry 90 Oxygen Delivery Me thod Room Air Oxygen Flow Rate 5 Fraction of Inspir ed Oxygen Hydration adequate: Yes Nausea and vomiting: No Pain level: 2 Mental status: Baseline
[2021-06-29 14:57] LABS: Quantiferon Mitogen 9.83 IU/mL; Quantiferon Nil 0.03 IU/mL; Quantiferon TB Gold NEGATIVE (NEGATIVE)
[2021-06-29] MEDS: lactulose oral liq 20 gm/30 mL UDC PO (15:14)
[2021-06-29] MEDS: midodrine 5 mg TABLET PO ×2 (15:14→21:37)
[2021-06-29] MEDS: amoxicillin-clav 875-125 mg Tablet 1 TAB PO (17:49)
[2021-06-29 21:46] LABS: Vancomycin Trough 19.9 ug/mL (10-15)
[2021-06-30] VITALS (17 sets, daily range): BP systolic 92–115; BP diastolic 56–67; PULSE 36–93; RESP 15–28; TEMP 36.7; O2SAT 90–94
--- NOTE | 2021-06-30 06:30 | PC.NURSE ---
patient is currently resting in bed, patient refused chest x-ray this am stating he wanted to wait till later after he had talked with the doctor, patient has remained stable this night on RA, VS remained WNL.
[2021-06-30 08:34] LABS: Basophils % 0.6 %; Hematocrit 26.6 % (42.0-52.0); Hemoglobin 8.5 g/dL (11.7-16.6); Lymphocytes # 1.1 10^3/uL (0.8-4.8); Lymphocytes % 33.7 %; Mean Corpuscular Volume 97.1 fl (80-94); Mean Platelet Volume 9.4 fL (7.4-10.4); Monocytes # 0.3 10^3/uL (0.2-0.9); Monocytes % 9.8 %; Neutrophils # 1.72 10^3/uL (1.8-7.7); Neutrophils % 54.6 %; Nucleated Red Blood Cells % 0 %; Platelet Count 189 10^3/cmm (130-400); Red Blood Count 2.74 10^6/uL (4.1-5.3); White Blood Count 3.2 10^3/uL (4.0-10.0)
--- NOTE | 2021-06-30 08:37 | PC.SOCIAL ---
IMM Update Pg.2 of IMM updated and reviewed with patient's over the phone. Initialed, dated, and timed, and placed in chart.
[2021-06-30] MEDS: methylphenidate 10 mg Tablet 5 MG PO (08:45)
[2021-06-30] MEDS: allopurinol 100 mg Tablet PO (08:45)
[2021-06-30] MEDS: amoxicillin-clav 875-125 mg Tablet 1 TAB PO (08:45)
[2021-06-30] MEDS: levothyroxine 50 mcg Tablet PO (08:45)
[2021-06-30] MEDS: enoxaparin 40 mg/0.4 mL Syringe SUBCUT (08:46)
[2021-06-30] MEDS: midodrine 5 mg TABLET PO (08:46)
[2021-06-30 08:50] LABS: Anion Gap 12.1 (5-19); Blood Urea Nitrogen 15 mg/dL (8-23); Calcium 8.2 mg/dL (8.5-10.5); Carbon Dioxide 20 mmol/L (22-29); Chloride 107 mmol/L (98-107); Glucose 108 mg/dL (65-115); Osmolality Calculated 283 mOsm/kg (285-295); Potassium 3.1 mmol/L (3.5-5.1); Sodium 136 mmol/L (136-145)
--- NOTE | 2021-06-30 08:53 | XR_ITS ---
WS: [id number] Portable AP upright chest, 06/30/2021 Clinical Data: Cough Comparison: Portable chest, 06/29/2021 Findings: The left lung opacity which is probably combination of atelectasis and effusion has increas ed slightly. There is decrease in amount of aeration in the left upper lobe. The right lung is clear. There is a small right effusion. Midline sternotomy sutures and a permanent pacemaker remain in posi tion. XR/XR chest 1V portable [id number] Impression: 1. Slight increase in left lung atelectasis and effusion. 2. No change in small right effusion. 3. No change in permanent pacemaker.
--- NOTE | 2021-06-30 14:15 | P.PN_ITS ---
Subjective Subjective: Interval history: -Patient seen today morning at bedside -Saturating 93% on room air -Chest x-ray showed recurrence of lithiasis and slight mediastinal shift to the left -Given his edematous airways more than likely patient will poor of secretions and will cause atelectasis -Patient is extremely uncooperative with pulmonary toileting which makes it very difficult to clear secretions -his TB QuantiFERON is negative Medications: Reviewed: Yes Vitals/I&O/Wt Last Vital Signs Temp 98.1 F 06/30/21 12:00 Pulse 76 06/30/21 12:00 Resp 26 H 06/30/21 12:00 BP 103/59 06/30/21 12:00 Pulse Ox 93 06/30/21 12:00 06/29/21 06/30/21 06/30/21 22:59 06:59 14:59 Intake Total 250 / 1930 920 / 920 Output Total 2 / Balance 250 / 1928 918 / 918 Physical Exam Narrative: EXAM NARRATIVE: General: Thin cachectic elderly male, alert, NAD HEENT: conj clear, EOMI, PERRL, mmm, Neck: supple, no meningismus Heme: no cervical LAP Pulmonary: Reduced breath sounds on left lung Cardiovascular: rrr, nl s1s2, no mrg Abdomen: Distended, tender, bowel sounds positive Extremities: pulses +, no edema, no c/c : no CVA tenderness Skin: intact, no rash MSK: no back or neck pain Neurologic: grossly intact Data : 06/30/21 08:23 06/30/21 08:23 Other Labs: Laboratory Results WBC 3.2 10^3/uL (4.0-10.0) L 06/30/21 08:23 RBC 2.74 10^6/uL (4.1-5.3) L 06/30/21 08:23 Hgb 8.5 g/dL (11.7-16.6) L 06/30/21 08:23 Hct 26.6 % (42.0-52.0) L 06/30/21 08:23 MCV 97.1 fl (80-94) H 06/30/21 08:23 MCH 31.0 pg (28.0-34.0) 06/30/21 08:23 MCHC 32.0 g/dL (30.0-36.0) 06/30/21 08:23 RDW 16.0 % (12.1-15.1) H 06/30/21 08:23 Plt Count 189 10^3/cmm (130-400) 06/30/21 08:23 MPV 9.4 fL (7.4-10.4) 06/30/21 08:23 Neut % (Auto) 54.6 % 06/30/21 08:23 Lymph % (Auto) 33.7 % 06/30/21 08:23 [place] % (Auto) 9.8 % 06/30/21 08:23 Eos % (Auto) 1.0 % 06/30/21 08:23 Baso % (Auto) 0.6 % 06/30/21 08: Neut # (Auto) 1.72 10^3/uL (1.8-7.7) L 06/30/21 08:23 Lymph # (Auto) 1.1 10^3/uL (0.8-4.8) 06/30/21 08:23 [place] # (Auto) 0.3 10^3/uL (0.2-0.9) 06/30/21 08:23 Eos # (Auto) 0.0 10^3/uL (0.0-0.8) 06/30/21 08:23 Baso # (Auto) 0.0 10^3/uL (0.0-0.1) 06/30/21 08:23 Nucleated RBC % (auto) 0 % 06/30/21 08: Nucleated RBCs # 0.0 /100WBC 06/30/21 08:23 PT 20.70 SECONDS (12.1-14.9) H 06/29/21 07:38 INR 1.73 (0.8-1.2) H 06/29/21 07:38 APTT 44.5 SECONDS (23.9-36.7) H 06/26/21 14:15 Sodium 136 mmol/L (136-145) 06/30/21 08:23 Potassium 3.1 mmol/L (3.5-5.1) L 06/30/21 08:23 Chloride 107 mmol/L (98-107) 06/30/21 08:23 Carbon Dioxide 20 mmol/L (22-29) L 06/30/21 08:23 Anion Gap 12.1 (5-19) 06/30/21 08:23 BUN 15 mg/dL (8-23) 06/30/21 08:23 Creatinine 0.9 mg/dL (0.7-1.2) 06/30/21 08:23 GFR Calculation Not Reportable 06/30/21 08:23 Glucose 108 mg/dL (65-115) 06/30/21 08:23 Estimat Average Glucose 82 06/27/21 03:40 Hemoglobin A1c 4.5 % (4.0-6.0) 06/27/21 03:40 Calculated Osmolality 283 mOsm/kg (285-295) L 06/30/21 08:23 Calcium 8.2 mg/dL (8.5-10.5) L 06/30/21 08:23 Phosphorus 2.7 mg/dL (2.5-4.5) 06/29/21 07:38 Magnesium 1.7 mg/dL (1.7-2.3) 06/29/21 07:38 Total Bilirubin 0.8 mg/dL (0.15-1.2) 06/29/21 07:38 AST 9 U/L (0-40) 06/29/21 07:38 ALT < 5 U/L (0-41) 06/29/21 07:38 Alkaline Phosphatase 118 IU/L (40-130) 06/29/21 07:38 Ammonia 34 umol/L (16-60) 06/26/21 20:08 Lactate Dehydrogenase 225 U/L (135-225) 06/27/21 03:40 Total Protein 4.9 g/dL (6.6-8.7) L 06/29/21 07:38 Albumin 2.2 g/dL (3.5-5.2) L 06/29/21 07:38 Globulin 2.7 g/dL (1.3-4.6) 06/29/21 07:38 Procalcitonin 0.27 ng/mL (0-0.5) 06/26/21 20:08 Peritoneal Color Pale yellow (Pale Yellow) 06/27/21 06:40 Peritoneal Appearance Clear (Clear) 06/27/21 06:40 Peritoneal pH 8.0 06/27/21 06:40 Peritoneal Spec [place] 1.010 06/27/21 06:40 Peritoneal WBC 37 /uL 06/27/21 06:40 Peritoneal RBC 0 10^3/uL 06/27/21 06:40 Periton [place]u # Auto 0.036 10^3/uL 06/27/21 06:40 Mononuclear WBCs % 97.300 % 06/27/21 06:40 Polynuclear WBCs % 2.700 % 06/27/21 06:40 Perit Polynuc WBCs # 0.001 10^3/uL 06/27/21 06:40 Peritoneal Tot Protein 2.1 g/dL 06/27/21 06:40 Peritoneal Albumin 1.1 g/dL 06/27/21 06:40 Peritoneal LDH 68.0 U/L 06/27/21 06:40 Peritoneal Glucose 86.0 mg/dL 06/27/21 06:40 Peritoneal Amylase 24 U/L (88-109) L 06/27/21 06:40 Peritoneal Triglycerid 26 mg/dL 06/27/21 06:40 Vancomycin Trough 19.9 ug/mL (10-15) H 06/29/21 20:56 Nasal/Oral COVID-19 PCR Not detected 06/26/21 14:00 TB (QFT) Gold In Tube Negative (NEGATIVE) 06/26/21 14:15 TB Test (QFT) Nil 0.03 IU/mL 06/26/21 14:15 TB Test (QFT) Mitogen 9.83 IU/mL 06/26/21 14:15 TB Test Mitogen - Nil 0.00 IU/mL 06/26/21 14:15 TB Test TB - Nil 0.00 IU/mL 06/26/21 14:[address] 06/26/21 15:31 IMPRESSION: 1. Large left pleural effusion with adjacent compressive atelectasis and or pneumonia. There is definitely a degree of atelectasis involved in the consolidation as there is a leftward mediastinal shift. Underlying neoplasm in the region of consolidation cannot be excluded. 2. There are scattered regions of right subpleural interstitial thickening, greatest at the lung base, suggestive of pulmonary fibrosis. Radiation Dose CTDIVOL = (mGy): DLP = 717.36 (mGy-cm) Chest Ultrasound 06/27/21 21:02 IMPRESSION: 1. Partially visualized abdominal ascites. No significant RIGHT pleural fluid. 2. Moderate pleural effusion is visualized in the LEFT chest on the prior CT June 26, 2021. Chest X-Ray 06/30/21 08:53 Impression: 1. Slight increase in left lung atelectasis and effusion. 2. No change in small right effusion. 3. No change in permanent pacemaker. Micro: Microbiology 06/28/21 09:30 Gram Stain - Final Lung Left Lower Lobe Bronchial Washings Culture - Preliminary 06/27/21 06:40 Gram Stain - Final Ascites Fluid Body Fluid Culture - Final A&P Assessment and plan (1) Atelectasis of left lung: Status: Acute (2) Ascites due to alcoholic cirrhosis: Status: Acute (3) Protein-calorie malnutrition, severe: Status: Acute (4) Prostate cancer: Status: Acute (5) Cirrhosis of liver: Status: Acute Qualifiers: Ascites presence: with ascites Hepatic cirrhosis type: alcoholic cirrhosis Qualified Code(s): K70.31 - Alcoholic cirrhosis of liver with ascites (6) Recurrent left pleural effusion: Status: Acute (7) Dyspnea: Status: Acute Qualifiers: Dyspnea type: dyspnea on exertion Qualified Code(s): R06.00 - Dyspnea, unspecified (8) Hydrothorax: Status: Acute (9) Hx of CABG: Status: Acute (10) ICD (implantable cardioverter-defibrillator) in place: Status: Acute #Cough with brownish sputum-suspicious for HCAP/aspiration pneumonia #Recurrent left pleural effusion and coexisting atelectasis of left lung- possible mucous plug #Effusion secondary to atelectasis vs hepatic hydrothorax in patient with alcoholic cirrhosis & ascites #Patient with history of CABG 1992 s/p AICD #History of prostate cancer -Hemodynamically stable and currently on 2 L saturating 94% -Bedside ultrasound did not show safe pocket to drain left pleural effusion but massive ascites -S/p paracentesis 06/27/2021-6700 cc straw-colored ascitic fluid drained; transudative fluid negative for SBP: Cultures pending - child Fernandez score 10, meld score 12 and history of hepatic encephalopathy, history of prostate cancer, given advanced age-poor candidate for TIPS and liver transplant -Mentation intact-ammonia 34-currently on lactulose with target BM 2 to 3/day -He was taking only Lasix 40 at correction - recommended sodium restriction<2 g/day; Lasix 40 mg daily and spironolactone 100 mg daily; -Patient needs to be medically optimized to prevent repeated paracentesis/ thoracentesis for recurrent ascites and hydrothorax; Can increase Lasix gradually up to 160 mg daily and spironolactone up to 400 mg daily; and to support blood pressure can give albumin supplementation -Despite being on maximum doses of Lasix and spironolactone and albumin supplementation-if patient continues to have ascites and hydrothorax-then he may need repeated paracentesis/thoracentesis although he has increased the risk of infection -Also started on midodrine for blood pressure support -S/p bronchoscopy with airway clearance on 06/29/2021: Copious thin secretions noted pooling in the left bronchial tree, which were suctioned right away and underlying mucosa appeared significantly edematous. There was temporary improvement in left atelectasis postprocedure. -Cultures from BAL preliminary negative so far-final cultures pending -Chest physiotherapy/Mucomyst/hypertonic saline/DuoNeb nebulization to clear pulmonary secretions-but patient has been so far noncompliant -TB QuantiFERON negative; Covid PCR negative -Chest imaging-suspicious for underlying left lung pneumonia-currently covered with vancomycin and Zosyn to cover for HCAP/aspiration pneumonia as patient was recently discharged from outside hospital -Recommended to send for sputum culture, bacterial antigens and Legionella antigen, MRSA nares-but patient noncooperative to give MRSA swab and urine samples -Patient continues to saturate 93% on room air -Cleared for discharge with 7-day course of Augmentin - Echo 06/18/21 at [facility] EF 60-65%, RV fx normal, mild to moderate MVR, RV systolic pressure 22. - VQ scan 06/17/2021: at [facility] negative low probability for pulmonary embolism Medical condition explained to patient and he verbalized understanding and agreed with the plan Recommendations conveyed to hospitalist, RN, RT taking care of the patient Attestations 2 Medical Necessity Statement*: Defer to hospitalist Time Spent in Patient Care: 16 - 35 minutes Critical Care Time: Critical Care Time (min): 30 Coding Level of Care Code Established Pt Acute Rubber Compounder Mixer for Chg Fwd Patient Type Established History Comprehensive Exam Comprehensive Medical Decision Making Moderate Complexity Diagnoses Atelectasis of left lung J98.11 Ascites due to alcoholic cirrhosis K70.31 Protein-calorie malnutrition, severe E43 Prostate cancer C61 Cirrhosis of liver K70.31 Ascites presence: with ascites Hepatic cirrhosis type: alcoholic cirrhosis Recurrent left pleural effusion J90 Dyspnea R06.00 Dyspnea type: dyspnea on exertion Hydrothorax J94.8 Hx of CABG Z95.1 ICD (implantable cardioverter-defibrillator) in place Z95.810 Time Spent (min) 30
--- NOTE | 2021-06-30 14:36 | PM.DCS ---
Discharge Providers Date of Admission: 06/27/21 11:25 Date of Discharge: June 30, 2021 Attending Provider at Admission: Matilda Hairston MD Attending Provider at Discharge: Tejinder Johns MD Diagnoses at Discharge Discharge Diagnosis (1) Atelectasis of left lung: Status: Acute (2) Ascites due to alcoholic cirrhosis: Status: Acute (3) Protein-calorie malnutrition, severe: Status: Acute (4) Prostate cancer: Status: Acute (5) Cirrhosis of liver: Status: Acute Qualifiers: Ascites presence: with ascites Hepatic cirrhosis type: alcoholic cirrhosis Qualified Code(s): K70.31 - Alcoholic cirrhosis of liver with ascites (6) Recurrent left pleural effusion: Status: Acute Reason for Visit Reason for Visit: COUGH; WANTS TB TEST Hospital Course Hospital Course HPI done by Dr. Hairston Hernan Rizo is a 76 year old male with past medical history significant for alcoholic cirrhosis, prostate cancer status post 9 weeks of radiation 6 years ago, hypertension, CABG with dilated cardiomyopathy with recent echo of LVEF 50%, status post ICD, portal gastropathy, hepatic encephalopathy, type 2 diabetes who presents to the ED today requesting a TB test. Patient is a very very poor historian. He is aware he is in the hospital knows what year it is and is alert but does not seem to want to talk. When asked questions he is unable to really provide much information except that he has been coughing up brown sputum. He repeatedly tells me that he was at [facility] admitted for low blood pressure and from there was sent to rehab in a senior living. [facility] is requesting a TB test and that is why he is here. He denies having a history of alcoholic cirrhosis or any other medical problems however does acknowledge that he has had open heart surgery in 1991. He does endorse having had thoracentesis and paracentesis prior but unable to give me a timeframe. Paperwork and discharge summary was requested from [facility] which details that patient was recently admitted there for acute respiratory failure due to large left pleural effusion along with significant hypovolemic shock and SRINIVAS. There was a questionable GI bleed although it was ruled out at the end. He did require ICU stay and was on Levophed for short part of time. Eventually he was discharged to a half-way facility. 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 Patient repeatedly states that he does not want to go back to [facility] as he was treated poorly area and would like to stay here in [place]. He lives in [place] and sees his primary care physician at [facility] the [place]. He does not know the name of his doctor. Today he reports to me that he has been having brown sputum for quite some time now he believes after his recent thoracentesis it has gotten worse. He denies any night sweats, fevers, chest pain, abdominal pain, recent falls. Denies having a cough although patient was coughing while I was in the room. He lives at home with his prior to going to hospital in [place]. 's name is Laila [phone]. He is a former smoker quit in 1991, reports quitting alcohol 1 year ago. Most of the above information was obtained from discharge summary from [facility]. Although patient did answer most of my questions I do not believe he is a reliable historian at this point. Hospital course Patient was admitted for airway clearance, rule out TB. Covid PCR negative, he had low risk for Mycobacterium tuberculosis, QuantiFERON TB test came back negative, peritoneal adenosine deaminase was sent after paracentesis as well, patient did not require any oxygen, his systolic blood pressure remained below 90 mmHg, received 3 units of albumin during his hospitalization, underwent diagnostic and therapeutic paracentesis by casino worker, more than 5 L were removed, ultrasound of left chest revealed no drainable fluid hence decision was made to do bronchoscopy for concern of mucous plug. During bronchoscopy large mucous plugs were retracted from left main bronchus, most likely related to episode of vomiting at the outside facility. His left lung did expand after bronchoscopy. To prevent recurrent ascites Recommended following regimen Increase Lasix from 40 mg to 80 mg and then 160 mg Spironolactone increased from 100 mg to 300 and then 400 mg,(midodrine added to prevent hypotension, he will need albumin dosages as well to prevent drop in MAP and hepatorenal syndrome) If he gets ascites on 160 mg of Lasix and 400 mg of spironolactone he will be considered refractory to diuretics and then in that case he will need recurrent paracentesis or peritoneal drain, his meld score is less than 15 as well, candidate for TIPS? Patient is extremely lethargic and fatigued has excessive protein calorie malnourishment he did require 3 bags of albumin, He does not make any effort to get out of bed, does complain of pain to any slightest bit of touch on his skin anywhere. He will be discharged today back to [facility] Physical Exam Narrative: EXAM NARRATIVE: This morning patient was saturating well on room air Did not complain of active chest pain or shortness of breath Slight improvement of left-sided breath sounds Lower extremity edema Abdomen without distention no signs of peritonitis EOMI, PERRLA Patient does complain of pain with any point of contact anywhere on his body No neurological deficits S1, S2 variable Discharge Data Data Completed and Pending: Completed Studies During Hospitalization Category Date Time Status CT chest wo con 7 1250 Stat Cat Scan 06/26/21 15:31 Completed XR chest 1V adela ble [id number] Routine Exams 06/27/21 09:00 Completed XR chest 1V adela ble [id number] Routine Exams 06/28/21 08:01 Completed XR chest 1V adela ble [id number] Routine Exams 06/29/21 09:37 Completed XR chest 1V adela ble [id number] Stat Exams 06/26/21 13:36 Completed XR chest 1V adela ble [id number] Stat Exams 06/30/21 08:53 Completed US chest [id number] Ro utine Ultrasound 06/27/21 21:02 Completed Pending at discharge Category Date Time Status Bacterial Antigen Routine Lab 06/27/21 14:50 Uncollected Bacterial Antigen Stat Lab 06/26/21 19:25 Uncollected Bronch Washing Cu lture & GS Routine Lab 06/28/21 09:30 Results Cell Count w Diff Pleural Fld Routi ne Lab 06/27/21 11:14 Uncollected Glucose Pleural F luid Routine Lab 06/27/21 11:14 Uncollected LDH Pleural Fluid Routine Lab 06/27/21 11:14 Uncollected Left Pleural Flui d Analysis Routine Lab 06/27/21 11:14 Uncollected Legionella Antige n STAT Routine Lab 06/27/21 14:50 Uncollected Legionella Antige n STAT Stat Lab 06/26/21 19:25 Uncollected MRSA by PCR Routi ne Lab 06/27/21 11:14 Uncollected MRSA by PCR Routi ne Lab 06/27/21 14:50 Uncollected Mycobacteria, Cul ture w/Fluor Routi ne Lab 06/29/21 09:30 Received Peritoneal Fld Ad enosine [place] Rout ine Lab 06/27/21 06:40 Received Sputum Culture an d Gram Stain Routi ne Lab 06/27/21 14:50 Uncollected Sputum Culture an d Gram Stain Stat Lab 06/26/21 19:22 Uncollected Total Protein Ple ural Fluid Routine Lab 06/27/21 11:14 Uncollected pH Pleural Fluid Routine Lab 06/27/21 11:14 Uncollected Cytology [PTH] Ro utine Pth 06/29/21 09:38 Received Labs from last 24 hours 06/30/21 06/30/21 06/29/21 08:23 08:23 20:56 WBC 3.2 L RBC 2.74 L Hgb 8.5 L Hct 26.6 L MCV 97.1 H MCH 31.0 MCHC 32.0 RDW 16.0 H Plt Count 189 MPV 9.4 Neut % (Auto) 54.6 Lymph % (Auto) 33.7 [place] % (Auto) 9.8 Eos % (Auto) 1.0 Baso % (Auto) 0.6 Neut # (Auto) 1.72 L Lymph # (Auto) 1.1 [place] # (Auto) 0.3 Eos # (Auto) 0.0 Baso # (Auto) 0.0 Nucleated RBC % (a uto) 0 Nucleated RBCs # 0.0 Sodium 136 Potassium 3.1 L Chloride 107 Carbon Dioxide 20 L Anion Gap 12.1 BUN 15 Creatinine 0.9 GFR Calculation Not Reportable Glucose 108 Calculated Osmolal ity 283 L Calcium 8.2 L Vancomycin Trough 19.9 H TB (QFT) Gold In T ube TB Test (QFT) Nil TB Test (QFT) Bobby gen TB Test Mitogen - Nil TB Test TB - Nil 06/26/21 14:15 WBC RBC Hgb Hct MCV MCH MCHC RDW Plt Count MPV Neut % (Auto) Lymph % (Auto) [place] % (Auto) Eos % (Auto) Baso % (Auto) Neut # (Auto) Lymph # (Auto) [place] # (Auto) Eos # (Auto) Baso # (Auto) Nucleated RBC % (a uto) Nucleated RBCs # Sodium Potassium Chloride Carbon Dioxide Anion Gap BUN Creatinine GFR Calculation Glucose Calculated Osmolal ity Calcium Vancomycin Trough TB (QFT) Gold In T ube Negative TB Test (QFT) Nil 0.03 TB Test (QFT) Bobby gen 9.83 TB Test Mitogen - Nil 0.00 TB Test TB - Nil 0.00 Vitals: Last Vital Signs Temp 98.1 F 06/30/21 12:00 Pulse 76 06/30/21 12:00 Resp 26 H 06/30/21 12:00 BP 103/59 06/30/21 12:00 Pulse Ox 93 06/30/21 12:00 Discharge Plan Discharge Patient Disposition: Xfer [facility] Condition: Stable Prescriptions: New spironolactone 25 mg Tablet 100 mg PO DAILY 30 Days Qty: 120 RF: 0 amoxicillin-pot clavulanate 875-125 mg Tablet 1 tab PO BID 10 Days Qty: 20 RF: 0 Continued acetaminophen 325 mg Tablet 325 mg PO Q6H PRN (Reason: Pain) RF: 0 Carafate 1 gram Tablet 1 g PO QID RF: 0 allopurinol 100 mg Tablet 100 mg PO DAILY RF: 0 levothyroxine 50 mcg Tablet 50 mcg PO DAILY RF: 0 Dulcolax (bisacodyl) 10 mg Suppository 10 mg DE DAILY PRN (Reason: Constipation) RF: 0 pantoprazole 40 mg Tablet,Delayed Release (Dr/Ec) 40 mg PO DAILY RF: 0 Nitrostat 0.4 mg Tablet, Sublingual 0.4 mg SUBLINGUAL Q5M PRN (Reason: Chest Pain) RF: 0 gabapentin 300 mg Capsule 600 mg PO BEDTIME RF: 0 aspirin 81 mg Tablet,Chewable 81 mg PO DAILY RF: 0 folic acid 1 mg Tablet 1 mg PO DAILY RF: 0 ferrous fumarate 324 mg (106 mg iron) Tablet 324 mg PO DAILY RF: 0 lactulose 10 gram/15 mL Solution 30 ml PO Q6H RF: 0 Vitamin D3 25 mcg (1,000 unit) Tablet 25 mcg PO DAILY RF: 0 cyanocobalamin (vitamin B-12) 3,000 mcg Capsule 6,000 mcg PO DAILY RF: 0 midodrine 5 mg Tablet 5 mg PO TID 30 Days Qty: 100 RF: 0 Xifaxan 550 mg Tablet 550 mg PO BID 30 Days Qty: 60 RF: 0 Changed Lasix 20 mg Tablet 40 mg PO DAILY 30 Days Qty: 60 RF: 0 Discontinued atorvastatin 40 mg Tablet 40 mg PO DAILY RF: 0 calcium carbonate 500 mg calcium (1,250 mg) Tablet 500 mg PO BID RF: 0 acetaminophen 500 mg Capsule 500 mg PO TID PRN (Reason: Pain) RF: 0 Discharge Orders: Discharge Order (Routine); Ordered 06/30/21 Ordered By: Tejinder Johns Referrals: [facility] [Outside] Discharge Diet: Cardiac Discharge Activity: Increase activity as tolerated Patient Instructions: Spironolactone (By mouth), Amoxicillin/Clavulanate Potassium (By mouth), Opioid Safety Activity Restrictions/Additional Instructions: Sodium diet less than 2 g to avoid fluid overload You can increase Lasix from 40 mg to 80 and then 160 mg and spironolactone can be increased to 300 or 400 mg and to avoid hypotension please use midodrine If he develops ascites on 160 mg of Lasix and 4 mg of spironolactone he can come back for paracentesis for recurrent ascites He developed mucous plug atelectasis of left lung most likely secondary to episode of vomiting at the outside facility finish 10 days of Augmentin Discharge Attestations Time Spent in Discharge Care*: less than 30 min Quality Metrics Clinical Quality Measures During this hospital stay, did patient experience: None Coding Level of Care Code Acute Chg FW DC note Diagnoses Atelectasis of left lung J98.11 Ascites due to alcoholic cirrhosis K70.31 Protein-calorie malnutrition, severe E43 Prostate cancer C61 Cirrhosis of liver K70.31 Ascites presence: with ascites Hepatic cirrhosis type: alcoholic cirrhosis Recurrent left pleural effusion J90
[2021-06-30 17:27] LABS: Peritoneal Fld Adenosine Deami 3.1 U/L (<7.6)
--- NOTE | 2021-06-30 18:00 | PC.NURSE ---
Pt discharged to snf. Pts IV removed no redness or swelling noted. Pts discharge instructions given and faxed to NH. This nurse called NH to give report, but was unsuccessful in three attempts getting any one to answer the phone. Pt had no c/o pain or discomfort at the time of discharge.
--- NOTE | 2021-07-05 07:51 | PC.SOCIAL ---
spoke with Amparo, pts nurse at [facility]. Patient is continuing to remain on sodium diet of less than 2 grams. Nurse reports patient isn't being compliant with taking medications. Due to non compliance with medications she isn't sure what dose of lasix or spironolatone patient is taking. She reports pt doesn't seem to be retaining fluid at this time.
== END 2021-06-30 16:45 | disposition skilled nursing facility (03) | DRG 186 ==
LOC: ER 16:17 → CSU 18:47
PROVIDERS: Internal Medicine Pulmonary Disease; Admitting Provider Internal Medicine; Emergency Provider Emergency Medicine; Visit Provider Internal Medicine
PROC: 0BJ08ZZ Inspection of Tracheobronchial Tree, Via Natural or Artificial Opening Endoscopic (ICD-10-PCS; CPT 31622; principal; 2021-06-29 09:00)
DX: J90 Pleural effusion, not elsewhere classified (principal); E43 Unspecified severe protein-calorie malnutrition; I42.0 Dilated cardiomyopathy; K76.6 Portal hypertension; J98.11 Atelectasis; K70.31 Alcoholic cirrhosis of liver with ascites; F10.21 Alcohol dependence, in remission; Z95.810 Presence of automatic (implantable) cardiac defibrillator; Z85.46 Personal history of malignant neoplasm of prostate; I10 Essential (primary) hypertension; I25.10 Atherosclerotic heart disease of native coronary artery without angina pectoris; Z95.1 Presence of aortocoronary bypass graft; K31.89 Other diseases of stomach and duodenum; E11.9 Type 2 diabetes mellitus without complications; Z87.891 Personal history of nicotine dependence; E03.9 Hypothyroidism, unspecified; Z96.659 Presence of unspecified artificial knee joint; J84.10 Pulmonary fibrosis, unspecified; Z68.23 Body mass index [BMI] 23.0-23.9, adult; Z79.82 Long term (current) use of aspirin; Z92.3 Personal history of irradiation
CPT/HCPCS: 31622; 31624; 36415; 36592; 71045; 71250; 76604; 80048; 80053; 80202; 80500; 82042; 82140; 82150; 82945; 83036; 83615; 83735; 83986; 84100; 84145; 84155; 84157; 84311; 84315; 84478; 85025; 85610; 85730; 86480; 87015; 87070; 87075; 87116; 87205; 87206; 87635; 87801; 88112; 88305; 89050; 94640; 96372; 99285; G0378; J0692; J1650; J2543; J2704; J3370; J3475; J7030; J7608; P9041; P9047

== ENCOUNTER 2021-08-05 14:55 | Inpatient (IN) | payer OTHER, MEDICARE, SELFPAY ==
[2021-08-05] VITALS (7 sets, daily range): BP systolic 91–93; BP diastolic 56–64; PULSE 88–100; RESP 17–19; TEMP 36.5; O2SAT 88–98; BMI 15.0
--- NOTE | 2021-08-05 15:28 | W.ED.EXTPRO ---
HPI - Extremity Problem General: Chief complaint: Extremity Problem,Nontraumatic Stated complaint: R TOE INFECTION Time Seen by Provider: 08/05/21 14:57 History of Present Illness: HPI Narrative: 76 yo male present with compalints of R toe infection. He lives at home alone he has heel ulcers as well patient has central bloating in his abdomen a lot of bruising in his arms no asked him admits he used to be drinking very heavily and he has alcoholic liver cirrhosis. His main complaint today is toe being red and inflamed. He does mention that he has a sacral ulcer which when examined was present was caked with feces he had recently had a bowel movement in the bed here in the emergency room. MD Complaint: extremity swelling Onset (ago): unknown Location: right and toe (great toe) Relieving factors: nothing Exacerbating factors: nothing Associated symptoms: Deny arthralgias, chest pain, fever(s), myalgias, rash or short of breath Review of Systems Const: Denies: fever(s) ENMT: Denies: throat pain, ear or mastoid pain, nasal discharge or nasal congestion Card: Denies: chest pain Resp: Denies: dyspnea, productive cough or non-productive cough GI: Denies: abdominal pain, nausea, vomiting, hematemesis, coffee ground emesis, diarrhea, constipation, bloating, hematochezia or melena : Denies: flank pain, dysuria, urinary frequency or urinary urgency Skin/Breast: Denies: rash PFSH ED PFSH: Medical History Ascites due to alcoholic cirrhosis Cirrhosis of liver Diabetes mellitus Dilated cardiomyopathy Dyspnea Hepatic encephalopathy Hydrothorax Hypertension Hypothyroidism ICD (implantable cardioverter-defibrillator) in place Prostate cancer Recurrent left pleural effusion Surgical History Hx of CABG Knee joint replacement status Social History Smoking and tobacco status: former smoker Quit status (tobacco): has quit using tobacco Alcohol intake: former Desire information about alcohol rehabilitation?: No Other details last alcohol use: 1 year prior Lives independently: No Household members: spouse Current gender identity: Male Physical Exam Const: COMMON NORMALS: no acute distress GENERAL APPEARANCE: cooperative and comfortable ORIENTATION/CONSCIOUSNESS: Yes awake, Yes oriented to person, Yes oriented to place and Yes oriented to time HENMT: COMMON NORMALS: normocephalic, atraumatic and hearing grossly normal bilaterally HEAD & SCALP: normocephalic and atraumatic Neck/C-Spine: COMMON NORMALS: no JVD Resp: COMMON NORMALS: normal respiratory effort, No retractions, No use of accessory muscles and clear to auscultation bilaterally AUSCULTATION: clear to auscultation bilaterally Cardio: COMMON NORMALS: no JVD, regular rate, regular rhythm and No murmurs present (Cardio) RATE: regular rate RHYTHM: regular rhythm GI: COMMON NORMALS: Soft to palpation and No hepatosplenomegaly present AUSCULTATION: Yes normoactive bowel sounds PALPATION: Yes Soft to palpation, No Tenderness to palpation present (GI), No Guarding due to palpation present (GI) and Yes No hepatosplenomegaly present Extremity: COMMON NORMALS: normal to inspection, capillary refill normal, no clubbing, cyanosis or edema, no calf tenderness and no pedal edema Neuro: SENSORIUM/ORIENTATION: Yes oriented to person, Yes oriented to place and Yes oriented to time Skin: OTHER: presacral ulcers, heal pressure ulcers and lateral malleolus ulcer ont eh L foot. R great toe inflamed and erythematous. Course Vital Signs: Vital signs: Vital Signs Temperature 98.0 F 08/07/21 16:00 Pulse Rate 84 08/07/21 16:00 Respiratory Rate 17 08/07/21 16:00 Blood Pressure 95/60 08/07/21 16:00 Pulse Oximetry 92 08/07/21 16:00 MDM - Extremity (Nontraumatic) MDM Narrative: Medical decision making narrative: Patient has a history of alcoholic cirrhosis think some of this is due to that. I think he does have some potential sepsis he does have acute hypoxic respiratory failure requiring oxygen think is related to COPD. He does have the toe infection that may be the source of sepsis although does not appear to involve any bone at this time. Discussed with Lab Data: Labs: Lab Results 08/05/21 08/05/21 08/05/21 09:55 15:25 15:25 WBC RBC Hgb Hct MCV MCH MCHC RDW Plt Count MPV Neut % (Auto) Lymph % (Auto) [facility] % (Auto) Eos % (Auto) Baso % (Auto) Neut # (Auto) Lymph # (Auto) [facility] # (Auto) Eos # (Auto) Baso # (Auto) Nucleated RBC % (a uto) Nucleated RBCs # PT 17.50 SECONDS H S ECONDS (12.1-14.9) INR 1.40 H (0.8-1.2) APTT 34.7 SECONDS SECO NDS (23.9-36.7) Sodium Potassium Chloride Carbon Dioxide Anion Gap BUN Creatinine GFR Calculation Glucose Calculated Osmolal ity Lactic Acid Lactic Acid (Sepsi s) Calcium Total Bilirubin AST ALT Alkaline Phosphata se Ammonia 73 umol/L H umol/ L (16-60) Creatine Kinase NT-Pro-B Natriuret Pep Total Protein Albumin Globulin Procalcitonin Urine Color Urine Appearance Urine pH Ur Specific Gravit y Urine Protein Urine Glucose (UA) Urine Ketones Urine Blood Urine Nitrate Urine Bilirubin Urine Urobilinogen Ur Leukocyte Arti ase Urine RBC Urine WBC Ur Squamous Epith Cells Amorphous Sediment Urine Bacteria Urine Mucus Urine Yeast SARS-CoV-2 Ag (Rap id) Negative (Negative) 08/05/21 08/05/21 08/05/21 15:25 15:25 15:25 WBC 6.4 10^3/uL 10^3/ uL (4.0-10.0) RBC 3.25 10^6/uL L 10 ^6/uL (4.1-5.3) Hgb 10.0 g/dL L g/dL (11.7-16.6) Hct 30.6 % L % (42.0-52.0) MCV 94.2 fl H fl (80-94) MCH 30.8 pg pg (28.0-34.0) MCHC 32.7 g/dL g/dL (30.0-36.0) RDW 15.4 % H % (12.1-15.1) Plt Count 245 10^3/cmm 10^3 /cmm (130-400) MPV 9.4 fL fL (7.4-10.4) Neut % (Auto) 55.6 % % Lymph % (Auto) 33.7 % % [facility] % (Auto) 8.9 % % Eos % (Auto) 0.8 % % Baso % (Auto) 0.5 % % Neut # (Auto) 3.55 10^3/uL 10^3 /uL (1.8-7.7) Lymph # (Auto) 2.2 10^3/uL 10^3/ uL (0.8-4.8) [facility] # (Auto) 0.6 10^3/uL 10^3/ uL (0.2-0.9) Eos # (Auto) 0.1 10^3/uL 10^3/ uL (0.0-0.8) Baso # (Auto) 0.0 10^3/uL 10^3/ uL (0.0-0.1) Nucleated RBC % (a uto) 0 % % Nucleated RBCs # 0.0 /100WBC /100W BC PT INR APTT Sodium 130 mmol/L L mmol /L (136-145) Potassium 4.3 mmol/L mmol/L (3.5-5.1) Chloride 95 mmol/L L mmol/ L (98-107) Carbon Dioxide 23 mmol/L mmol/L (22-29) Anion Gap 16.3 (5-19) BUN 35 mg/dL H mg/dL (8-23) Creatinine 1.2 mg/dL mg/dL (0.7-1.2) GFR Calculation Not Reportable Glucose 161 mg/dL H mg/dL (65-115) Calculated Osmolal ity 281 mOsm/kg L mOs m/kg (285-295) Lactic Acid 3.3 mmol/L H mmol /L (0.5-2.2) Lactic Acid (Sepsi s) Calcium 8.5 mg/dL mg/dL (8.5-10.5) Total Bilirubin 0.6 mg/dL mg/dL (0.15-1.2) AST 16 U/L U/L (0-40) ALT < 5 U/L U/L (0-41) Alkaline Phosphata se 174 IU/L H IU/L (40-130) Ammonia Creatine Kinase 15 U/L L U/L (39-308) NT-Pro-B Natriuret Pep Total Protein 7.0 g/dL g/dL (6.6-8.7) Albumin 2.5 g/dL L g/dL (3.5-5.2) Globulin 4.5 g/dL g/dL (1.3-4.6) Procalcitonin Urine Color Urine Appearance Urine pH Ur Specific Gravit y Urine Protein Urine Glucose (UA) Urine Ketones Urine Blood Urine Nitrate Urine Bilirubin Urine Urobilinogen Ur Leukocyte Arti ase Urine RBC Urine WBC Ur Squamous Epith Cells Amorphous Sediment Urine Bacteria Urine Mucus Urine Yeast SARS-CoV-2 Ag (Rap id) 08/05/21 08/05/21 08/05/21 15:25 15:25 18:25 WBC RBC Hgb Hct MCV MCH MCHC RDW Plt Count MPV Neut % (Auto) Lymph % (Auto) [facility] % (Auto) Eos % (Auto) Baso % (Auto) Neut # (Auto) Lymph # (Auto) [facility] # (Auto) Eos # (Auto) Baso # (Auto) Nucleated RBC % (a uto) Nucleated RBCs # PT INR APTT Sodium Potassium Chloride Carbon Dioxide Anion Gap BUN Creatinine GFR Calculation Glucose Calculated Osmolal ity Lactic Acid Lactic Acid (Sepsi s) Calcium Total Bilirubin AST ALT Alkaline Phosphata se Ammonia Creatine Kinase NT-Pro-B Natriuret Pep 1216 pg/mL H pg/m L (0-450) Total Protein Albumin Globulin Procalcitonin 0.36 ng/mL ng/mL (0-0.5) Urine Color Yellow (Yellow) Urine Appearance Cloudy (CLEAR) Urine pH 7 (5-7) Ur Specific Gravit y 1.005 (1.005-1.030) Urine Protein Neg (Negative) Urine Glucose (UA) Norm (Normal) Urine Ketones Negative (Negative) Urine Blood 3+ H (Negative) Urine Nitrate Negative (Negative) Urine Bilirubin Neg (Negative) Urine Urobilinogen Norm mg/dL mg/dL (Negative) Ur Leukocyte Arti ase 2+ H (Negative) Urine RBC 5-10 /hpf H /hpf (0-2) Urine WBC Too numerous to c nt /hpf H /hpf (0-5) Ur Squamous Epith Cells 5-10 /hpf H /hpf (0-5) Amorphous Sediment Not Reportable Urine Bacteria 2+ /hpf H /hpf (NONE) Urine Mucus 1+ /hpf /hpf Urine Yeast 1+ /hpf H /hpf SARS-CoV-2 Ag (Rap id) 08/05/21 18:27 WBC RBC Hgb Hct MCV MCH MCHC RDW Plt Count MPV Neut % (Auto) Lymph % (Auto) [facility] % (Auto) Eos % (Auto) Baso % (Auto) Neut # (Auto) Lymph # (Auto) [facility] # (Auto) Eos # (Auto) Baso # (Auto) Nucleated RBC % (a uto) Nucleated RBCs # PT INR APTT Sodium Potassium Chloride Carbon Dioxide Anion Gap BUN Creatinine GFR Calculation Glucose Calculated Osmolal ity Lactic Acid Lactic Acid (Sepsi s) 1.9 mmol/L mmol/L (0.5-2.2) Calcium Total Bilirubin AST ALT Alkaline Phosphata se Ammonia Creatine Kinase NT-Pro-B Natriuret Pep Total Protein Albumin Globulin Procalcitonin Urine Color Urine Appearance Urine pH Ur Specific Gravit y Urine Protein Urine Glucose (UA) Urine Ketones Urine Blood Urine Nitrate Urine Bilirubin Urine Urobilinogen Ur Leukocyte Arti ase Urine RBC Urine WBC Ur Squamous Epith Cells Amorphous Sediment Urine Bacteria Urine Mucus Urine Yeast SARS-CoV-2 Ag (Rap id) Discharge Plan Discharge Patient Disposition: Admitted As Inpatient Admit Provider: Matilda Hairston Clinical Impression: Cirrhosis of liver, Hypoxia, Cellulitis of toe Condition: Stable Discharge Diet: Low Salt Discharge Activity: Increase activity as tolerated and Oxygen as instructed Coding Level of Care Code ED Record Press Tender for Iong Fwd Exam Detailed
--- NOTE | 2021-08-05 15:32 | ECG_ITS ---
[facility] Test Date: 2021-08-05 Pat Name: Hernan Rizo Department: Room: Gender: Male Team Guide: : 1945 Requested By: Andrew Fernandez Order Number: [id number] Ana Maria MD: Natalya Ahn M.D. Measurements Intervals [place] Rate: 84 P: NE: QRS: 212 QRSD: 140 T: 16 QT: 436 QTc: 516 Interpretive Statements ELECTRONIC VENTRICULAR PACEMAKER ABNORMAL RHYTHM ECG No previous ECG available for comparison Electronically Signed On 08-06-2021 8:51:56 CDT by Natalya Ahn M.D. [email or web address]
--- NOTE | 2021-08-05 15:32 | XR_ITS ---
WS: [id number] Exam: XR toe RT min 2V [id number] Date/Time of Exam: 08/05/2021 3:32 PM Reason For Exam: great toe No acute fracture or dislocation. No radiopaque soft tissue foreign bodies are seen. XR/XR toe RT min 2V [id number] IMPRESSION: 1. No fracture or other significant finding.
[2021-08-05 15:47] LABS: Basophils % 0.5 %; Eosinophils # 0.1 10^3/uL (0.0-0.8); Eosinophils % 0.8 %; Hematocrit 30.6 % (42.0-52.0); Lymphocytes # 2.2 10^3/uL (0.8-4.8); Lymphocytes % 33.7 %; Mean Corpuscular HGB Conc 32.7 g/dL (30.0-36.0); Mean Corpuscular Hemoglobin 30.8 pg (28.0-34.0); Mean Corpuscular Volume 94.2 fl (80-94); Mean Platelet Volume 9.4 fL (7.4-10.4); Monocytes # 0.6 10^3/uL (0.2-0.9); Monocytes % 8.9 %; Neutrophils # 3.55 10^3/uL (1.8-7.7); Neutrophils % 55.6 %; Nucleated Red Blood Cells % 0 %; Platelet Count 245 10^3/cmm (130-400); Red Blood Count 3.25 10^6/uL (4.1-5.3); Red Cell Distribution Width 15.4 % (12.1-15.1); White Blood Count 6.4 10^3/uL (4.0-10.0)
[2021-08-05 16:03] LABS: Partial Thromboplastin Time 34.7 SECONDS (23.9-36.7)
--- NOTE | 2021-08-05 16:04 | PC.NURSE ---
pt incontinent of stool. hygiene needs addressed. call light within reach. no needs at this time
[2021-08-05 16:26] LABS: Lactic Sepsis W/Reflex 3.3 mmol/L (0.5-2.2)
[2021-08-05 16:35] LABS: Alanine Aminotransferase < 5 U/L (0-41); Albumin Level 2.5 g/dL (3.5-5.2); Alkaline Phosphatase 174 IU/L (40-130); Blood Urea Nitrogen 35 mg/dL (8-23); Calcium 8.5 mg/dL (8.5-10.5); Carbon Dioxide 23 mmol/L (22-29); Chloride 95 mmol/L (98-107); Creatine Phosphokinase 15 U/L (39-308); Globulin 4.5 g/dL (1.3-4.6); Glucose 161 mg/dL (65-115); Osmolality Calculated 281 mOsm/kg (285-295); Sodium 130 mmol/L (136-145); Total Bilirubin 0.6 mg/dL (0.15-1.2)
[2021-08-05 16:38] LABS: Anion Gap 16.3 (5-19); Aspartate Amino Transferase 16 U/L (0-40); Potassium 4.3 mmol/L (3.5-5.1)
[2021-08-05 16:43] LABS: Ammonia 73 umol/L (16-60)
--- NOTE | 2021-08-05 16:58 | XRR_ITS ---
PROCEDURE INFORMATION: Exam: XR Chest Exam date and time: 08/05/2021 4:58 PM Age: 76 years old Clinical indication: Cough and shortness of breath; Additional info: Dyspnea/cough TECHNIQUE: Imaging protocol: XR of the chest. Views: 1 view. COMPARISON: CR XR chest 1V portable [id number] 06/30/2021 8:51 AM FINDINGS: Tubes, catheters and devices: There is a three-lead cardiac AICD via left subclavian approach. Findings are stable. Lungs: See Pleural spaces finding. Pleural spaces: Decrease in size of a left pleural effusion with improving aeration in the left lung. Residual atelectasis or pneumonia in the left lingula or left lower lobe. No pneumothorax. No pneumothorax. Heart/Mediastinum: Cardiac silhouette is moderately enlarged. Mediastinal contours are unremarkable. Bones/joints: Poststernotomy changes in the chest. Bones are diffusely osteopenic. Degenerative changes in the spine and shoulders. Osseous findings are stable. XR/XR chest 1V portable [id number] IMPRESSION: 1. Decrease in size of a left pleural effusion with improving aeration in the left lung. Residual atelectasis or pneumonia in the left lingula or left lower lobe. Recommend followup chest imaging to insure resolution of these findings. 2. Incidental/nonacute findings are listed in the report. Radiation Dose CTDIVOL = (mGy): DLP = (mGy-cm)
--- NOTE | 2021-08-05 17:04 | CTR_ITS ---
PROCEDURE INFORMATION: Exam: CTA Chest With Contrast Exam date and time: 08/05/2021 5:04 PM Age: 76 years old Clinical indication: Shortness of breath; Prior surgery; Surgery date: 6+ months; Surgery type: Cabg, icd; Patient HX: SOB per mo staff; Additional info: Dyspnea TECHNIQUE: Imaging protocol: Computed tomographic angiography of the chest with contrast. Sagittal and coronal reformatted images were created and reviewed. 3D rendering (Not supervised by radiologist): MIP and/or 3D reconstructed images were created by the technologist. Radiation optimization: All CT scans at this facility use at least one of these dose optimization techniques: automated exposure control; mA and/or kV adjustment per patient size (includes targeted exams where dose is matched to clinical indication); or iterative reconstruction. Contrast material: VISI 320; Contrast volume: 75 ml; Contrast route: INTRAVENOUS (IV); COMPARISON: 1. CT chest wo con [id number] 06/26/2021 3:44 PM 2. CR (CHEST, ) 08/05/2021 5:06:12 PM RADIATION DOSE METRICS: Total DLP (mGy-cm): 543.61 FINDINGS: Pulmonary arteries: No filling defects in the pulmonary arteries to suggest pulmonary embolism. Aorta: Stable calcification of the aortic valve. Stable mild atherosclerotic changes in the visualized arteries. No evidence for aortic aneurysm or aortic dissection. Lungs: Tracheobronchial structures are patent. Interstitial fibrotic changes in the periphery of the right lower lobe and left upper lobe. There is linear scarring in the left upper lobe and right lower lobe. Improving aeration in the left lung with residual atelectasis or pneumonia in the left lingula and left lower lobe. No pulmonary parenchymal nodules or masses. Calcified granulomas in both lower lobes. Pleural spaces: Moderate/large left pleural effusion has decreased in size. No pneumothorax. Heart: Stable moderate enlargement of the heart. Stable extensive atherosclerotic calcification in the coronary arteries. Lymph nodes: No lymphadenopathy. No lymphadenopathy. Partially calcified subcarinal lymph nodes. Liver: Stable nodular contour of the visualized liver with hypertrophy of the left hepatic lobe. Gallbladder and bile ducts: Multiple stones in the gallbladder. Findings are stable. No dilatation of the visualized bile ducts. Pancreas: The visualized pancreas is unremarkable. No pancreatic ductal dilatation. Spleen: The visualized spleen is unremarkable. Adrenal glands: The visualized right and left adrenal glands are unremarkable. Kidneys and ureters: The visualized right and left kidneys are unremarkable. Intraperitoneal space: Moderate volume ascites in the upper abdomen, decreased compared the prior CT scan. Bones/joints: Bones are diffusely osteopenic. Degenerative changes in the spine and shoulders. Synovial osteochondroma versus intra-articular loose body in the anterior right shoulder. Findings are stable. Mild scoliosis in the visualized spine. Old, moderate compression deformity of T12. Soft tissues: No acute abnormality in the extrathoracic soft tissues. CT/CT angio chest PE protcl [id number] IMPRESSION: 1. Moderate/large left pleural effusion has decreased in size. 2. Improving aeration in the left lung with residual atelectasis or pneumonia in the left lingula and left lower lobe. 3. No evidence for pulmonary embolism. 4. Cholelithiasis, unchanged. 5. Synovial osteochondroma versus intra-articular loose body in the anterior right shoulder. Findings are stable. 6. Stable findings in the visualized liver consistent with cirrhosis. Moderate volume ascites, decreased compared with the previous study. 7. Incidental/nonacute findings are listed in the report. Radiation Dose CTDIVOL = (mGy): DLP = 543.61 (mGy-cm)
[2021-08-05 17:31] LABS: Reflex Lactate Order REFLEX LACTIC ORDERD
--- NOTE | 2021-08-05 18:12 | PM.HP ---
Providers/Chief Complaint Chief Complaint: R TOE INFECTION History of Present Illness Hernan Rizo is a 76 year old male with past medical history significant for alcoholic cirrhosis, prostate cancer status post 9 weeks of radiation 6 years ago, hypertension, CABG with dilated cardiomyopathy with recent echo of LVEF 50%, status post ICD, portal gastropathy, hepatic encephalopathy, type 2 diabetes, COPD who presents to the ED today for complaints of right toe infection. He lives at home alone he has heel ulcers as well. Patient also has central bloating in his abdomen most likely secondary to ascites. Patient carries a diagnosis of alcoholic liver cirrhosis. His main complaint today is that his toe is red and inflamed. He also mentioned that he has a sacral ulcer. ER physician examined patient's sacral ulcer which was covered with feces because he had a bowel movement in the ER. ED course: Blood pressure 93/63, pulse ox 88%. He was placed on 4 L nasal cannula. Heart rate 95, temperature 97.7, respiratory rate 17. He is on midodrine 5 mg 3 times daily at home along with Lasix 40 daily. Rifaximin 550 twice daily, aspirin, folic acid, lactulose every 6 hours, levothyroxine 50, albumin 100, Carafate 1 g 4 times daily. I do not see any evidence of spironolactone on his home medications although he was discharged on spironolactone at the last admission. His medications will need to be confirmed to her pharmacy. Chest x-ray today did show decreasing size of left pleural effusion with improving aeration in left lung. Residual atelectasis or pneumonia in left lingula or left lower lobe. WBC count 6.4, hemoglobin 10, platelet count 245. INR 1.4. Lactic acid 3.3. Ammonia 73. He was started on vancomycin and Zosyn in the ER. CTA chest was ordered and it is pending at this time. Chart Review: Previous admission reviewed: Paperwork and discharge summary was requested from [facility] which details that patient was recently admitted there for acute respiratory failure due to large left pleural effusion along with significant hypovolemic shock and SRINIVAS. There was a questionable GI bleed although it was ruled out at the end. He did require ICU stay and was on Levophed for short part of time. Eventually he was discharged to a group home facility. The nursing facility requested for a TB test and therefore he was sent to the hospital. Patient was admitted to rule out TB. Covid PCR negative. QuantiFERON-TB test came back negative. Patient did not require any oxygen. Systolic blood pressure remained below 90 and he had to receive albumin during his hospitalization. He underwent diagnostic and therapeutic paracentesis pulmonology and 5 L were removed. Ultrasound of left chest revealed no drainable fluid hence decision was made to do a bronchoscopy for concern of mucous plug. During bronchoscopy large mucous plugs were extracted from bronchus most likely related to episode of vomiting at outside facility. His left lung did reexpand after bronchoscopy. I discharge he was sent on Lasix, spironolactone. Meld score less than 15 unsure if patient was a candidate for TIPS at that point. He was sent back to [facility]. Review of Systems General: Reports: 10 or more systems reviewed and unremarkable except in HPI and below Medications/Allergies Home Medications Medication Instructions Recorded Confirmed Last Taken Type Carafate 1 g PO QID 06/26/21 06/26/21 06/24/21 History Dulcolax (bisacodyl) 10 mg NJ DAILY PRN 06/26/21 06/26/21 Unknown History Nitrostat 0.4 mg SUBLINGUAL Q5M PRN 06/26/21 06/26/21 Unknown History Vitamin D3 25 mcg PO DAILY 06/26/21 06/26/21 06/26/21 History acetaminophen 325 mg PO Q6H PRN 06/26/21 06/26/21 Unknown History allopurinol 100 mg PO DAILY 06/26/21 06/26/21 06/26/21 History aspirin 81 mg PO DAILY 06/26/21 06/26/21 06/26/21 History cyanocobalamin (vitamin B-12) 6,000 mcg PO DAILY 06/26/21 06/26/21 06/26/21 History ferrous fumarate 324 mg PO DAILY 06/26/21 06/26/21 06/26/21 History folic acid 1 mg PO DAILY 06/26/21 06/26/21 06/26/21 History gabapentin 600 mg PO BEDTIME 06/26/21 06/26/21 06/25/21 History lactulose 30 ml PO Q6H 06/26/21 06/26/21 06/25/21 History levothyroxine 50 mcg PO DAILY 06/26/21 06/26/21 06/24/21 History pantoprazole 40 mg PO DAILY 06/26/21 06/26/21 06/26/21 History Lasix 40 mg PO DAILY 30 Days #60 tab 06/30/21 06/26/21 06/26/21 Rx Xifaxan 550 mg PO BID 30 Days #60 tab 06/30/21 06/26/21 06/26/21 Rx acetylcysteine 500 mg PO DAILY #30 cap 06/30/21 Unknown Rx midodrine 5 mg PO TID 30 Days #100 tab 06/30/21 06/26/21 06/26/21 Rx Allergies Allergy/AdvReac Type Severity Reaction Status Date / Time morphine Allergy Unknown Unknown Verified 08/05/21 14:59 PFSH Acute PFSH: Medical History Ascites due to alcoholic cirrhosis Cirrhosis of liver Diabetes mellitus Dilated cardiomyopathy Dyspnea Hepatic encephalopathy Hydrothorax Hypertension Hypothyroidism ICD (implantable cardioverter-defibrillator) in place Prostate cancer Recurrent left pleural effusion Surgical History Hx of CABG Knee joint replacement status Social History Smoking and tobacco status: former smoker Quit status (tobacco): has quit using tobacco Alcohol intake: former Desire information about alcohol rehabilitation?: No Other details last alcohol use: 1 year prior Lives independently: No Household members: spouse Current gender identity: Male Vitals/I&O/Wt Last Vital Signs Temp 97.7 F 08/05/21 15:00 Pulse 95 08/05/21 15:00 Resp 17 08/05/21 15:00 BP 93/63 08/05/21 15:00 Pulse Ox 88 L 08/05/21 15:28 Weight last 48 hrs Weight 40.823 kg Physical Exam Narrative: EXAM NARRATIVE: General: Alert oriented x3, patient seen laying in bed in emergency room. Frail-appearing male cachectic appearance, temporal wasting. HEENT: Normocephalic, atraumatic, EOMI, breathing room air Cardio: Regular rate rhythm, normal S1-S2, no murmurs rubs gallops, no JVD, ICD in place left-sided chest. Respiratory: GI: Abdomen soft, nontender, very mildly distended, normoactive bowel sounds present all 4 quadrants, No focal neurological deficit, limited neuro exam Behavior: Appears depressed, did cooperate somewhat. Extremities: No cyanosis or edema. Skin: Large areas of ecchymosis all over chest shoulders and arms. Dry appearing scaly skin, Right great toe: swollen, erythematous, pedal pulses intact, yellowish 1 cm ulcer draining clear yellowish fluid present on tip of toe. No ulcers present on rest of toes. No edema b/l lower extremities Data : 08/06/21 05:53 08/06/21 05:53 Micro: Microbiology 08/05/21 15:25 Blood Culture - Preliminary Blood SPECIMEN COLLECTED 08/05/21 15:25 Blood Culture - Preliminary Blood SPECIMEN COLLECTED A&P Additional A&P Information #Alcoholic liver cirrhosis, MELD 12 #Hepatic encephalopathy #S/P drainage of large left pleural effusion last admission #Hx of prostate cancer status post 9 weeks of radiation 6 years ago #Hypertension but now hypotensive #CABG with dilated cardiomyopathy with recent echo of LVEF 50%, status post ICD #Sepsis secondary to Right great toe infection #Acute hypoxic respiratory failure, requiring 4L #Possible Pneumonia -CTA chest pending. - Will hold lasix secondary to soft BP today - Will give albumin IV TB rule out last time patient was here. 5 L pleural effusion was removed bronchoscopy was done and mucous plugs were also removed. Will order sputum culture and Gram stain Check procalcitonin We will order urine antigens for strep pneumo and Legionella, MRSA nares swab Cover with vanc and cefepime as empiric therapy for now. Continue patient on Lasix, lactulose, Carafate, rifaximin. Ammonia level 74 today. Continue patient on levothyroxine Fluids: NS 40 cc/hr E: Replete as needed N: Low sodium, low K diet A: As tolerated DVT PPx: SCDS Attestations Medical Necessity Statement*: > 48 hour inpatient stay Time Spent in Patient Care: 16 - 35 minutes Coding Level of Care Code Acute Hide Examiner for Carolin Rodarte
[2021-08-05] MEDS: iodixanol 320 mg/mL 100mL Btl IV (18:13)
[2021-08-05 18:52] LABS: Lactic Acid level (Lactate) 1.9 mmol/L (0.5-2.2)
[2021-08-05 18:54] LABS: Blood Urine 3+ (Negative); Glucose Urine UA Norm (Normal); Ketones Urine Negative (Negative); Nitrate Urine Negative (Negative); Protein Urine Neg (Negative); Specific Gravity, Urine 1.005 (1.005-1.030); Urine Appearance Cloudy (CLEAR); Urine Color Yellow (Yellow); pH Urine 7 (5-7)
[2021-08-05 18:55] LABS: Add Urine Microscopic? YES; Bilirubin Urine Neg (Negative); Leukocyte Esterase Urine 2+ (Negative); Urobilinogen Urine Norm (Negative)
[2021-08-05 18:58] LABS: Bacteria Urine 2+ /hpf; Mucus Urine 1+ /hpf; WBC Urine TOO NUMEROUS TO CNT /hpf (0-5)
[2021-08-05 19:02] LABS: Add Urine Culture? Yes
[2021-08-05 19:03] LABS: Procalcitonin 0.36 ng/mL (0-0.5)
[2021-08-05 19:15] LABS: NT Pro B Type Natriuretic Pept 1216 pg/mL (0-450)
[2021-08-05] MEDS: sodium chloride 0.9% 1,000 ML 999 ML IV (19:32)
[2021-08-05] MEDS: cefepime 2,000 MG in sodium chloride 0.9% (plus) 50 ML 100 MG IV (19:32)
[2021-08-05] MEDS: sucralfate 1 gm Tablet PO (21:08)
[2021-08-05] MEDS: midodrine 5 mg TABLET PO (21:08)
[2021-08-05] MEDS: sodium chloride 0.9% 1,000 ML 40 ML IV (21:10)
[2021-08-05] MEDS: vancomycin 1,000 MG in sodium chloride 0.9% 250 ML 250 MG IV (21:32)
[2021-08-05] MEDS: ipratropium-albuterol 3 mL Neb INHALATION (22:05)
[2021-08-05] MEDS: albumin 12.5 GM/50 ML VIAL IV (22:47)
[2021-08-06] VITALS (10 sets, daily range): BP systolic 90–99; BP diastolic 42–60; PULSE 89–106; RESP 16–18; TEMP 36.5–37.3; O2SAT 93–98
[2021-08-06 06:17] LABS: Basophils % 0.5 %; Hematocrit 27.9 % (42.0-52.0); Lymphocytes # 0.8 10^3/uL (0.8-4.8); Lymphocytes % 20.2 %; Mean Corpuscular HGB Conc 32.3 g/dL (30.0-36.0); Mean Corpuscular Hemoglobin 30.8 pg (28.0-34.0); Mean Corpuscular Volume 95.5 fl (80-94); Mean Platelet Volume 9.3 fL (7.4-10.4); Monocytes # 0.3 10^3/uL (0.2-0.9); Monocytes % 8.5 %; Neutrophils # 2.78 10^3/uL (1.8-7.7); Neutrophils % 69.3 %; Nucleated Red Blood Cells % 0 %; Platelet Count 205 10^3/cmm (130-400); Red Blood Count 2.92 10^6/uL (4.1-5.3); Red Cell Distribution Width 15.4 % (12.1-15.1)
[2021-08-06] MEDS: cefepime 2,000 MG in sodium chloride 0.9% (plus) 50 ML 100 MG IV ×2 (06:17→18:49)
[2021-08-06 06:22] LABS: INR 1.55 (0.8-1.2)
[2021-08-06 06:27] LABS: Lactic Sepsis W/Reflex 1.4 mmol/L (0.5-2.2)
[2021-08-06 06:30] LABS: Alanine Aminotransferase < 5 U/L (0-41); Albumin Level 2.3 g/dL (3.5-5.2); Alkaline Phosphatase 133 IU/L (40-130); Aspartate Amino Transferase 11 U/L (0-40); Blood Urea Nitrogen 32 mg/dL (8-23); Calcium 8.3 mg/dL (8.5-10.5); Carbon Dioxide 23 mmol/L (22-29); Chloride 102 mmol/L (98-107); Globulin 3.7 g/dL (1.3-4.6); Glucose 91 mg/dL (65-115); Magnesium 1.6 mg/dL (1.7-2.3); Osmolality Calculated 282 mOsm/kg (285-295); Sodium 133 mmol/L (136-145); Total Bilirubin 0.6 mg/dL (0.15-1.2)
[2021-08-06] MEDS: ipratropium-albuterol 3 mL Neb INHALATION (07:56)
[2021-08-06] MEDS: levothyroxine 50 mcg Tablet PO (08:07)
[2021-08-06] MEDS: midodrine 5 mg TABLET PO ×3 (08:07→21:57)
[2021-08-06] MEDS: folic acid 1 mg Tablet PO (08:08)
[2021-08-06] MEDS: aspirin 81 mg Chew Tablet PO (08:08)
[2021-08-06] MEDS: pantoprazole DR 40 mg Tablet PO (08:09)
[2021-08-06] MEDS: allopurinol 100 mg Tablet PO (08:09)
--- NOTE | 2021-08-06 08:34 | XRR_ITS ---
PROCEDURE INFORMATION: Exam: XR Chest Exam date and time: 08/06/2021 8:34 AM Age: 76 years old Clinical indication: Shortness of breath; Additional info: Follow up pnuemonia TECHNIQUE: Imaging protocol: XR of the chest. Views: 1 view. Total images: 1 COMPARISON: CR (CHEST, ) 08/05/2021 5:06 PM FINDINGS: Tubes, catheters and devices: AICD projects in satisfactory location. Lungs: Slight interval worsening of left pleuroparenchymal disease. Right pulmonary opacity is again noted and appears unchanged from the prior exam. Pleural spaces: No pneumothorax. Heart/Mediastinum: Heart size is stable when compared to the prior exam. Bones/joints: Osseous structures are unchanged from the prior exam. Other findings: Stable postsurgical changes. XR/XR chest 1V portable [id number] IMPRESSION: 1. Slight interval worsening of left pleuroparenchymal disease. 2. Right pulmonary opacity is again noted and appears unchanged from the prior exam. Radiation Dose CTDIVOL = (mGy): DLP = (mGy-cm)
[2021-08-06 10:48] LABS: SARS Covid-2 Antigen Negative (Negative)
--- NOTE | 2021-08-06 12:13 | P.PN_ITS ---
Subjective Subjective: Interval history: Seen and examined this morning. Patient states he has no problems with his breathing. He is at baseline. He says I do not know why you have admitted me for pneumonia. I told him I do not believe he has pneumonia but the bigger problem is his right great toe infection. There is an ulcer present as well. And it is looking the same as admission with absolutely no improvement in the redness. [facility] would [facility]. He is requesting for oral antibiotics and to be discharged. Vitals/I&O/Wt Last Vital Signs Temp 98.6 F 08/06/21 07:56 Pulse 106 H 08/06/21 11:50 Resp 18 08/06/21 11:50 BP 90/43 08/06/21 07:56 Pulse Ox 94 08/06/21 11:50 08/05/21 08/06/21 08/06/21 22:59 06:59 14:59 Intake Total 1300 / 1300 290 / 1590 50 / 50 Output Total 275 / 275 Balance 1025 / 1025 290 / 1315 50 / 50 Weight last 48 hrs Weight 40.823 kg Weight 40.823 kg Physical Exam Narrative: EXAM NARRATIVE: General: Alert oriented x3, patient seen laying in bed in emergency room. Frail-appearing male cachectic appearance, temporal wasting. HEENT: Normocephalic, atraumatic, EOMI, breathing room air Cardio: Regular rate rhythm, normal S1-S2, no murmurs rubs gallops, ICD in place left-sided chest. Respiratory: GI: Abdomen soft, nontender, very mildly distended, normoactive bowel sounds present all 4 quadrants, No focal neurological deficit Behavior: Appears depressed, did cooperate somewhat. Extremities: No cyanosis or edema. Skin: Large areas of ecchymosis all over chest shoulders and arms. Dry appearing scaly skin, Right great toe: swollen, erythematous, pedal pulses intact, yellowish 1 cm ulcer draining clear yellowish fluid present on tip of toe. No ulcers present on rest of toes. 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 -CTA chest ruled out PE - Will continue lasix 20 daily oral. - Will give albumin IV TB rule out last time patient was here. 5 L pleural effusion was removed bronchoscopy was done and mucous plugs were also removed. Will order sputum culture and Gram stain Procalcitonin is negative. We will order urine antigens for strep pneumo and Legionella, MRSA nares swab Continue vanc and cefepime as empiric therapy for now. Continue patient on Lasix, lactulose, Carafate, rifaximin. check venous, arterial dopplers b/l le, will check cta aorta run off as well. Continue duoneb q6 hours Continue patient on levothyroxine Fluids: NS 40 cc/hr E: Replete as needed N: Low sodium, low K diet A: As tolerated DVT PPx: SCDS Attestations Medical Necessity Statement*: will need to stay another 24 hours. 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
--- NOTE | 2021-08-06 14:43 | USR_ITS ---
PROCEDURE INFORMATION: Exam: US Duplex Lower Extremity Arteries Exam date and time: 08/06/2021 2:43 PM Age: 76 years old Clinical indication: Pain; Foot; Right; Additional info: Great toe ulcer and redness, eval for pad, order clarified with Dr frankel TECHNIQUE: Imaging protocol: Real-time ultrasound scan of the arteries of the bilateral lower extremities with 2-D boswell scale, color Doppler flow and spectral waveform analysis. Images documented and saved. COMPARISON: [place] [id number] 08/06/2021 3:07 PM FINDINGS: Right common femoral artery: No occlusion or significant stenosis. Normal waveform. Right superficial femoral artery: No occlusion or significant stenosis. Normal waveform. Right popliteal artery: No occlusion or significant stenosis. Normal waveform. Right calf/foot arteries: No occlusion or significant stenosis in the visualized arteries. Normal waveforms. Dorsalis pedis artery is patent. Left common femoral artery: No occlusion or significant stenosis. Normal waveform. Left superficial femoral artery: No occlusion or significant stenosis. Normal waveform. Left popliteal artery: No occlusion or significant stenosis. Normal waveform. Left calf/foot arteries: No occlusion or significant stenosis in the visualized arteries. Dampened diastolic flow with spectral broadening in the left posterior tibial artery. Otherwise normal waveforms. Dorsalis pedis artery is patent. US/[place] [id number] IMPRESSION: No stenosis or occlusion. Radiation Dose CTDIVOL = (mGy): DLP = (mGy-cm)
--- NOTE | 2021-08-06 14:44 | USR_ITS ---
PROCEDURE INFORMATION: Exam: US Duplex Lower Extremity Veins, Bilateral Exam date and time: 08/06/2021 2:44 PM Age: 76 years old Clinical indication: Pain; Foot; Right; Additional info: Rule out dvt, order clarified with Dr frankel TECHNIQUE: Imaging protocol: Real-time duplex ultrasound of the extremities with 2-D boswell scale, color Doppler flow and spectral waveform analysis with image documentation. Complete exam focused on the bilateral lower extremity veins. COMPARISON: CR XR toe RT min 2V [id number] 08/05/2021 4:02 PM FINDINGS: Right deep veins: Unremarkable. The common femoral, femoral, proximal profunda femoral and popliteal veins are patent without thrombus. Normal Doppler waveforms. Normal compressibility and/or augmentation response. Right superficial veins: Saphenofemoral junction is patent without thrombus. Left deep veins: Unremarkable. The common femoral, femoral, proximal profunda femoral and popliteal veins are patent without thrombus. Normal Doppler waveforms. Normal compressibility and/or augmentation response. Left superficial veins: Saphenofemoral junction is patent without thrombus. Soft tissues: Unremarkable. US/[place] [id number] IMPRESSION: No evidence of deep vein thrombosis. Radiation Dose CTDIVOL = (mGy): DLP = (mGy-cm)
[2021-08-06 16:12] LABS: C Reactive Protein 32.2 mg/L (0.0-4.9)
[2021-08-06] MEDS: sodium chloride 0.9% 1,000 ML 40 ML IV (18:27)
[2021-08-06] MEDS: vancomycin 750 MG in sodium chloride 0.9% 250 ML 250 MG IV (22:47)
[2021-08-07] VITALS: BP 100/63; PULSE 79; RESP 18; TEMP 36.8; O2SAT 97
[2021-08-07 04:00] VITALS: BP 96/52; PULSE 87; RESP 16; TEMP 36.5; O2SAT 90
[2021-08-07] MEDS: cefepime 2,000 MG in sodium chloride 0.9% (plus) 50 ML 100 MG IV (06:20)
[2021-08-07 07:55] VITALS: PULSE 83; RESP 17; O2SAT 94
[2021-08-07 08:00] VITALS: BP 94/49; PULSE 86; RESP 17; TEMP 36.7; O2SAT 90
[2021-08-07] MEDS: FUROsemide 20 mg Tablet PO (09:05)
[2021-08-07] MEDS: allopurinol 100 mg Tablet PO (09:05)
[2021-08-07] MEDS: aspirin 81 mg Chew Tablet PO (09:05)
[2021-08-07] MEDS: lactulose oral liq 20 gm/30 mL UDC 30 GM PO (09:05)
[2021-08-07] MEDS: levothyroxine 50 mcg Tablet PO (09:06)
[2021-08-07] MEDS: midodrine 5 mg TABLET PO (09:06)
[2021-08-07] MEDS: folic acid 1 mg Tablet PO (09:06)
[2021-08-07] MEDS: pantoprazole DR 40 mg Tablet PO (09:06)
--- NOTE | 2021-08-07 10:57 | P.CONIM_ITS ---
Providers/Reason For Consult Consulting Physician/Specialty*: Josiah Andrew D.P.M. 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 Has paronychia to the right great toe which I was consulted for. Has been going on for several weeks he reports some improvement with oral antibiotics. Denies any trauma or injury to his right great toe. Patient denies any subjective nausea, vomiting, fever, chills, shortness of breath or chest pain. Undergoing rehab at [facility] wants to return. Review of Systems General: Reports: 10 or more systems reviewed and unremarkable except in HPI and below Const: Denies: fever(s) or chills Card: Denies: chest pain or palpitations Resp: Denies: productive cough GI: Denies: abdominal pain, nausea or vomiting : Denies: flank pain Musc: Reports: extremity swelling, joint pain, joint stiffness, limited range of motion and deformity Skin/Breast: Reports: erythema, skin tenderness, sores, nail changes and change in hair; Denies: rash Neuro: Reports: numbness in extremities, sensory changes and difficulty walking Psych: Denies: suicidal ideation Landry/Lymph: Denies: easy bruising Meds/Allergies Home Medications and Allergies Home Medications Medication Instructions Recorded Confirmed Last Taken Type acetaminophen 650 mg PO Q6H PRN 06/26/21 08/06/21 Unknown History allopurinol 100 mg PO DAILY 06/26/21 08/06/21 08/05/21 History bisacodyl [Dulcolax (bisacodyl)] 10 mg MT DAILY PRN 06/26/21 08/06/21 Unknown History cholecalciferol (vitamin D3) 25 mcg PO DAILY 06/26/21 08/06/21 08/05/21 History [Vitamin D3] cyanocobalamin (vitamin B-12) 6,000 mcg PO DAILY 06/26/21 08/06/21 08/05/21 History ferrous fumarate 324 mg PO DAILY 06/26/21 08/06/21 08/05/21 History folic acid 1 mg PO DAILY 06/26/21 08/06/21 08/05/21 History gabapentin 600 mg PO BEDTIME 06/26/21 08/06/21 08/04/21 History lactulose 30 ml PO Q6H 06/26/21 08/06/21 08/03/21 History levothyroxine 50 mcg PO DAILY 06/26/21 08/06/21 08/05/21 History nitroglycerin [Nitrostat] 0.4 mg SUBLINGUAL Q5M PRN 06/26/21 08/06/21 Unknown History pantoprazole 40 mg PO DAILY 06/26/21 08/06/21 08/05/21 History Xifaxan 550 mg PO BID 30 Days #60 tab 06/30/21 08/06/21 08/05/21 Rx midodrine 5 mg PO TID 30 Days #100 tab 06/30/21 08/06/21 08/05/21 Rx furosemide [Lasix] 20 mg PO DAILY 08/06/21 08/06/21 08/05/21 History spironolactone 50 mg PO DAILY 08/06/21 08/06/21 08/05/21 History Allergies Allergy/AdvReac Type Severity Reaction Status Date / Time morphine Allergy Unknown Unknown Verified 08/05/21 14:59 Current Medications Current Medications Generic Name Dose Route Start Last Admin Trade Name Freq PRN Reason Stop Dose Admin Albuterol/Ipratropium 3 ml 08/05/21 20:00 08/06/21 19:59 Ipratropium-Albuterol 3 Ml Neb INHALATION Not Given QID.RESPIRATORY ASIA Allopurinol 100 mg 08/06/21 09:00 08/07/21 09:05 Allopurinol 100 Mg Tablet PO 100 mg DAILY ASIA Administration Aspirin 81 mg 08/06/21 09:00 08/07/21 09:05 Aspirin 81 Mg Chew Tablet PO 81 mg DAILY ASIA Administration Folic Acid 1 mg 08/06/21 09:00 08/07/21 09:06 Folic Acid 1 Mg Tablet PO 1 mg DAILY ASIA Administration Furosemide 20 mg 08/07/21 08:00 08/07/21 09:05 Furosemide 20 Mg Tablet PO 20 mg DAILY@0800 ASIA Administration Cefepime HCl 2,000 mg/ Sodium 50 mls @ 100 mls/hr 08/06/21 19:00 08/07/21 06:20 Chloride IV 100 mls/hr Q12H ASIA Administration Protocol Sodium Chloride 1,000 mls @ 40 mls/hr 08/06/21 15:00 08/06/21 18:27 Sodium Chloride 0.9% IV 40 mls/hr .Q24H ASIA Administration Vancomycin HCl 750 mg/ Sodium 250 mls @ 250 mls/hr 08/06/21 22:00 08/07/21 00:00 Chloride IV Infused Q24H ASIA Infusion Lactulose 30 gm 08/05/21 20:33 08/07/21 09:05 Lactulose Oral Liq 20 Gm/30 Ml Udc PO 30 gm Q6H ASIA Administration Levothyroxine Sodium 50 mcg 08/06/21 09:00 08/07/21 09:06 Levothyroxine 50 Mcg Tablet PO 50 mcg DAILY ASIA Administration Midodrine 5 mg 08/05/21 21:00 08/07/21 09:06 Midodrine 5 Mg Tablet PO 5 mg TID ASIA Administration Non-Formulary Medication 324 mg 08/06/21 09:00 08/07/21 09:06 Ferrous Fumarate PO Not Given DAILY ASIA Pantoprazole Sodium 40 mg 08/06/21 09:00 08/07/21 09:[address] 40 Mg Tablet PO 40 mg DAILY ASIA Administration Rifaximin 550 mg 08/06/21 09:00 08/07/21 09:06 Rifaximin 550 Mg Tablet PO 550 mg BID ASIA Administration Protocol Sucralfate 1 gm 08/05/21 21:00 08/07/21 09:06 Sucralfate 1 Gm Tablet PO Not Given QID ASIA PFSH Acute PFSH: Medical History Ascites due to alcoholic cirrhosis Cirrhosis of liver Diabetes mellitus Dilated cardiomyopathy Dyspnea Hepatic encephalopathy Hydrothorax Hypertension Hypothyroidism ICD (implantable cardioverter-defibrillator) in place Prostate cancer Recurrent left pleural effusion Surgical History Hx of CABG Knee joint replacement status Social History Smoking and tobacco status: former smoker Quit status (tobacco): has quit using tobacco Alcohol intake: former Desire information about alcohol rehabilitation?: No Other details last alcohol use: 1 year prior Lives independently: No Household members: spouse Current gender identity: Male Vitals/I&O/Wt Last Vital Signs Temp 98.0 F 08/07/21 08:00 Pulse 86 08/07/21 08:00 Resp 17 08/07/21 08:00 BP 94/49 08/07/21 08:00 Pulse Ox 90 08/07/21 08:00 08/06/21 08/07/21 08/07/21 22:59 06:59 14:59 Intake Total 530 / 700 310 / 1010 100 / 100 Output Total 200 / 550 250 / 800 Balance 330 / 150 60 / 210 100 / 100 Weight last 48 hrs Weight 90 lb Weight 90 lb Physical Exam Narrative: EXAM NARRATIVE: GENERAL: Patient is alert and oriented ?3 and in no acute distress. The following is a focused bilateral lower extremity exam. VASCULAR: Dorsalis pedis faintly palpable bilaterally, posterior tibial arteries faintly palpable. Capillary refill time less than 5 seconds to the distal hallux bilaterally. Calf is supple and nontender proximally and distally. Decreased pedal hair growth bilaterally. No pedal edema. NEUROLOGICAL: Protective sensation intact 0/10 sites, tested with [place] Silvestre monofilament to bilateral feet. DERMATOLOGICAL: Localized erythema to the distal one third of the right hallux without proximal lymphangitic streaking. Purulence under the right great toenail. MUSCULOSKELETAL: Muscle strength 5 out of 5 in all 3 cardinal planes to the bilateral foot and ankle. Mild tenderness of the right great toe. 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 After obtaining verbal consent right great toe was cleansed and right great toenail avulsed. Able to visualize entire nailbed no wounds, very distal tuft of the right great toe has a superficial wound that does not probe to bone. Some purulence encountered with nail avulsion however this was evacuated and flushed dressed with mupirocin ointment 2% and dry sterile bandage. Will have order sent to [facility] to perform twice daily Band-Aid change and mupirocin ointment application. Will be discharged with Augmentin 875/125 mg to be taken twice daily for 14 days. Will follow-up 1 week via telehealth sooner should he experience complications. 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
[2021-08-07 12:20] VITALS: O2SAT 87
--- NOTE | 2021-08-07 15:16 | P.CONIM_ITS ---
Providers/Reason For Consult Consulting Physician/Specialty*: Ritesh Talavera MD Reason for Consult*: Wound Care consult Attending Physician: Matilda Hairston MD History of Present Illness History of Present Illness Chief Complaint: Back sore History of present illness: MR. Hernan Rizo is a 76 year old male with multiple medical comorbidities in the form of alcoholic cirrhosis, prostate cancer status post 9 weeks of radiation 6 years ago, hypertension, CABG with dilated cardiomyopathy with recent echo of LVEF 50%, status post ICD, portal gastropathy, hepatic encephalopathy, type 2 diabetes, COPD. Patient was admitted to the hospitalist service because of right toe infection that was managed by podiatry service. At the time of dis charge back to the [facility] patient was found to have a lower back pressure injury ulcer unstageable and subsequently general surgery consult was initiated for further evaluation and potential management. Review of Systems General: Reports: 10 or more systems reviewed and unremarkable except in HPI and below Meds/Allergies Home Medications and Allergies Home Medications Medication Instructions Recorded Confirmed Last Taken Type allopurinol 100 mg PO DAILY 06/26/21 08/06/21 08/05/21 History bisacodyl [Dulcolax (bisacodyl)] 10 mg OR DAILY PRN 06/26/21 08/06/21 Unknown History cholecalciferol (vitamin D3) 25 mcg PO DAILY 06/26/21 08/06/21 08/05/21 History [Vitamin D3] cyanocobalamin (vitamin B-12) 6,000 mcg PO DAILY 06/26/21 08/06/21 08/05/21 History ferrous fumarate 324 mg PO DAILY 06/26/21 08/06/21 08/05/21 History folic acid 1 mg PO DAILY 06/26/21 08/06/21 08/05/21 History gabapentin 600 mg PO BEDTIME 06/26/21 08/06/21 08/04/21 History lactulose 30 ml PO Q6H 06/26/21 08/06/21 08/03/21 History levothyroxine 50 mcg PO DAILY 06/26/21 08/06/21 08/05/21 History nitroglycerin [Nitrostat] 0.4 mg SUBLINGUAL Q5M PRN 06/26/21 08/06/21 Unknown History pantoprazole 40 mg PO DAILY 06/26/21 08/06/21 08/05/21 History Xifaxan 550 mg PO BID 30 Days #60 tab 06/30/21 08/06/21 08/05/21 Rx midodrine 5 mg PO TID 30 Days #100 tab 06/30/21 08/06/21 08/05/21 Rx Lasix 20 mg PO DAILY 08/06/21 08/06/21 08/05/21 History spironolactone 50 mg PO DAILY 08/06/21 08/06/21 08/05/21 History amoxicillin-pot clavulanate 1 tab PO BID 14 Days #28 tab 08/07/21 Unknown Rx [Augmentin] mupirocin 1 applic TOPICAL DAILY 7 Days #22 g 08/07/21 Unknown Rx Allergies Allergy/AdvReac Type Severity Reaction Status Date / Time morphine Allergy Unknown Unknown Verified 08/07/21 16:10 Current Medications Current Medications Generic Name Dose Route Start Last Admin Trade Name Freq PRN Reason Stop Dose Admin Albuterol/Ipratropium 3 ml 08/05/21 20:00 08/07/21 12:17 Ipratropium-Albuterol 3 Ml Neb INHALATION Not Given QID.RESPIRATORY ASIA Allopurinol 100 mg 08/06/21 09:00 08/07/21 09:05 Allopurinol 100 Mg Tablet PO 100 mg DAILY ASIA Administration Aspirin 81 mg 08/06/21 09:00 08/07/21 09:05 Aspirin 81 Mg Chew Tablet PO 81 mg DAILY ASIA Administration Folic Acid 1 mg 08/06/21 09:00 08/07/21 09:06 Folic Acid 1 Mg Tablet PO 1 mg DAILY ASIA Administration Furosemide 20 mg 08/07/21 08:00 08/07/21 09:05 Furosemide 20 Mg Tablet PO 20 mg DAILY@0800 ASIA Administration Cefepime HCl 2,000 mg/ Sodium 50 mls @ 100 mls/hr 08/06/21 19:00 08/07/21 13:40 Chloride IV Infused Q12H ASIA Infusion Protocol Sodium Chloride 1,000 mls @ 40 mls/hr 08/06/21 15:00 08/06/21 18:27 Sodium Chloride 0.9% IV 40 mls/hr .Q24H ASIA Administration Vancomycin HCl 750 mg/ Sodium 250 mls @ 250 mls/hr 08/06/21 22:00 08/07/21 00:00 Chloride IV Infused Q24H ASIA Infusion Lactulose 30 gm 08/05/21 20:33 08/07/21 09:05 Lactulose Oral Liq 20 Gm/30 Ml Udc PO 30 gm Q6H ASIA Administration Levothyroxine Sodium 50 mcg 08/06/21 09:00 08/07/21 09:06 Levothyroxine 50 Mcg Tablet PO 50 mcg DAILY ASIA Administration Midodrine 5 mg 08/05/21 21:00 08/07/21 09:06 Midodrine 5 Mg Tablet PO 5 mg TID ASIA Administration Non-Formulary Medication 324 mg 08/06/21 09:00 08/07/21 09:06 Ferrous Fumarate PO Not Given DAILY ASIA Pantoprazole Sodium 40 mg 08/06/21 09:00 08/07/21 09:[address] 40 Mg Tablet PO 40 mg DAILY ASIA Administration Rifaximin 550 mg 08/06/21 09:00 08/07/21 09:06 Rifaximin 550 Mg Tablet PO 550 mg BID ASIA Administration Protocol Sucralfate 1 gm 08/05/21 21:00 08/07/21 14:02 Sucralfate 1 Gm Tablet PO Not Given QID ASIA PFSH Acute PFSH: Medical History Ascites due to alcoholic cirrhosis Cirrhosis of liver Diabetes mellitus Dilated cardiomyopathy Dyspnea Hepatic encephalopathy Hydrothorax Hypertension Hypothyroidism ICD (implantable cardioverter-defibrillator) in place Prostate cancer Recurrent left pleural effusion Surgical History Hx of CABG Knee joint replacement status Social History Smoking and tobacco status: former smoker Quit status (tobacco): has quit using tobacco Alcohol intake: former Desire information about alcohol rehabilitation?: No Other details last alcohol use: 1 year prior Lives independently: No Household members: spouse Current gender identity: Male Vitals/I&O/Wt Last Vital Signs Temp 98.0 F 08/07/21 08:00 Pulse 86 08/07/21 08:00 Resp 17 08/07/21 08:00 BP 94/49 08/07/21 08:00 Pulse Ox 87 L 08/07/21 12:20 08/07/21 08/07/21 08/07/21 06:59 14:59 22:59 Intake Total 310 / 1010 150 / 150 Output Total 250 / 800 Balance 60 / 210 150 / 150 Weight last 48 hrs Weight 90 lb Physical Exam Narrative: EXAM NARRATIVE: Patient is conscious alert oriented X3 BMI 15.0, malnourished Head and neck examination PERRLA no masses no cervical lymphadenopathy no jaundice Abdomen nontender nondistended soft no organomegaly guarding or rigidity/no signs of peritonitis Presence of 4.5 x 3.5 cmx 0.1 cm depth sacral pressure injury ulcer stage II. Tender.Leathery skin is appreciated with breakdown. With surrounding erythema of the skin likely skin excoriation. Data Micro: Micro: Microbiology 08/05/21 18:25 Urine Culture - Pr eliminary Urine,Clean Catch 08/05/21 15:25 Blood Culture - Pr eliminary Blood NEGATIVE TO PATRICK E 08/05/21 15:25 Blood Culture - Pr eliminary Blood NEGATIVE TO PATRICK E 08/05/21 09:55 Legionella Urinary Antigen - Final Urine,Voided Bacterial Antigens - Final 08/05/21 09:55 MRSA Culture - Fin al Nose A&P Assessment and plan (1) Pressure ulcer of sacral region, stage 2: After history taking physical examination and reviewing the chart, I did certified drug counselor the patient for debridement bedside under local anesthesia. Patient understands the potential risks, benefits alternatives and indications and potential need for long-term wound care.. Recommendations from surgery standpoint of view: 1-nutrition optimization 2-wound care in the form of daily application of Hydrofera Blue and the surrounding skin periwound area Apply zinc oxide cream for skin protection. Recommend turning in bed every 2 hours. 3-management of medical comorbidities per primary care provider/hospitalist services. 4-physical therapy consultation when needed. 5-assurance and education All questions have been answered and all concerns have been addressed to patient's satisfaction. Procedure note Pre-procedure diagnosis sacral pressure injury ulcer stage II Post-Procedure diagnosis sacral pressure injury ulcer stage III Procedure done sharp and excisional debridement of pressure injury ulcer all the way to the fatty layer Description of the procedure After thorough history physical examination and reviewing the chart, I counseled the patient for debridement of pressure injury ulcer, informed consent per chart as patient did agree to proceed. Prep and drape of the designated area was done under the usual sterile technique Time-out was done verifying the patient's name and date of the procedure and destination after the procedure and the procedure itself,all were in agreement Lidocaine 2% gel 10 blade knife was used for sharp debridement as well as sharp curette. All the way to the fatty layer including normal part of the skin Hemostasis was achieved using pressure and silver nitrate stick application. Predebridement measurements 3.5 x 4.5 x 0.1 cm. Post debridement measurements 3.5 x 4.6 x 0[address] to the fatty layer Dressing was applied in the form of Hydrofera Blue followed by OPTi foam as a secondary dressing Patient tolerated the procedure well I was present for the whole entire procedure Complications: No immediate complications EBL: Less than 5 mL ml Specimens:none Mode of anesthesia: Lidocaine gel 2% Surgeon Ritesh Talavera MD Full Fashioned Garment Knitter RN [facility] Location [facility] [place] bedside When patient goes back to the [facility] and wound care consult should be initiated follow-up on the progress of the wound. Status: Acute Consult Attestations Medical Necessity Statement: Per admitting service Time Spent in Patient Care: Greater than 35 minutes (>than 50% of time spent in counselling and/or direct pt care on unit) . Coding Level of Care Code Acute Imaging Science Professor for Chg Fwd Diagnoses Pressure ulcer of sacral region, stage 2 L89.152
[2021-08-07 16:00] VITALS: BP 95/60; PULSE 84; RESP 17; TEMP 36.7; O2SAT 92
[2021-08-07] MEDS: silver nitrate applicator 2 EACH TOPICAL (16:51)
--- NOTE | 2021-08-07 17:00 | PM.DCS ---
Discharge Providers Date of Admission: 08/05/21 20:27 Date of Discharge: August 07, 2021 Attending Provider at Admission: Matilda Hairston MD Attending Provider at Discharge: Matilda Hairston MD Diagnoses at Discharge Discharge Diagnosis (1) Pressure ulcer of sacral region, stage 2: Status: Acute Reason for Visit Reason for Visit: R TOE INFECTION Hospital Course Hospital Course Hernan Rizo is a 76 year old male with past medical history significant for alcoholic cirrhosis, prostate cancer status post 9 weeks of radiation 6 years ago, hypertension, CABG with dilated cardiomyopathy with recent echo of LVEF 50%, status post ICD, portal gastropathy, hepatic encephalopathy, type 2 diabetes, COPD who presents to the ED today for complaints of right toe infection. He lives at home alone he has heel ulcers as well. Patient also has central bloating in his abdomen most likely secondary to ascites. Patient carries a diagnosis of alcoholic liver cirrhosis. His main complaint today is that his toe is red and inflamed. He also mentioned that he has a sacral ulcer. ER physician examined patient's sacral ulcer which was covered with feces because he had a bowel movement in the ER. ED course: Blood pressure 93/63, pulse ox 88%. He was placed on 4 L nasal cannula. Heart rate 95, temperature 97.7, respiratory rate 17. He is on midodrine 5 mg 3 times daily at home along with Lasix 40 daily. Rifaximin 550 twice daily, aspirin, folic acid, lactulose every 6 hours, levothyroxine 50, albumin 100, Carafate 1 g 4 times daily. I do not see any evidence of spironolactone on his home medications although he was discharged on spironolactone at the last admission. His medications will need to be confirmed to her pharmacy. Chest x-ray today did show decreasing size of left pleural effusion with improving aeration in left lung. Residual atelectasis or pneumonia in left lingula or left lower lobe. WBC count 6.4, hemoglobin 10, platelet count 245. INR 1.4. Lactic acid 3.3. Ammonia 73. He was started on vancomycin and Zosyn in the ER. CTA chest was ordered and it is pending at this time. Chart Review: Previous admission reviewed: Paperwork and discharge summary was requested from [facility] which details that patient was recently admitted there for acute respiratory failure due to large left pleural effusion along with significant hypovolemic shock and SRINIVAS. There was a questionable GI bleed although it was ruled out at the end. He did require ICU stay and was on Levophed for short part of time. Eventually he was discharged to a correction facility. The nursing facility requested for a TB test and therefore he was sent to the hospital. Patient was admitted to rule out TB. Covid PCR negative. QuantiFERON-TB test came back negative. Patient did not require any oxygen. Systolic blood pressure remained below 90 and he had to receive albumin during his hospitalization. He underwent diagnostic and therapeutic paracentesis pulmonology and 5 L were removed. Ultrasound of left chest revealed no drainable fluid hence decision was made to do a bronchoscopy for concern of mucous plug. During bronchoscopy large mucous plugs were extracted from bronchus most likely related to episode of vomiting at outside facility. His left lung did reexpand after bronchoscopy. I discharge he was sent on Lasix, spironolactone. Meld score less than 15 unsure if patient was a candidate for TIPS at that point. He was sent back to [facility]. Hospital Course Patient admitted for paronychia. Nail removed at bedside by podiatry. Mupicoin and augmentin recommended with 1 week follow up outpatient. Also found to have sacral decubitus ulcer which was debrided by Dr. Morris at bedside and wound care recommendations made. He was at baseline 2L oxygen and no evidence or suspicion of PNA. Pateint was discharged back to nursing facility. Physical Exam Narrative: EXAM NARRATIVE: General: Alert oriented x3, patient seen laying in bed in emergency room. Frail-appearing male cachectic appearance, temporal wasting. HEENT: Normocephalic, atraumatic, EOMI, breathing room air Cardio: Regular rate rhythm, normal S1-S2, no murmurs rubs gallops, ICD in place left-sided chest. Respiratory: GI: Abdomen soft, nontender, very mildly distended, normoactive bowel sounds present all 4 quadrants, No focal neurological deficit Behavior: Appears depressed, did cooperate somewhat. Extremities: No cyanosis or edema. Skin: Large areas of ecchymosis all over chest shoulders and arms. Dry appearing scaly skin, Right great toe: swollen, erythematous, pedal pulses intact, yellowish 1 cm ulcer draining clear yellowish fluid present on tip of toe. No ulcers present on rest of toes. No edema b/l lower extremities Discharge Data Data Completed and Pending: Completed Studies During Hospitalization Category Date Time Status CT angio chest PE protcl [id number] Stat Cat Scan 08/05/21 17:04 Completed XR chest 1V adela ble [id number] Routine Exams 08/06/21 08:34 Completed XR chest 1V adela ble [id number] Stat Exams 08/05/21 16:58 Completed XR toe RT min 2V [id number] Stat Exams 08/05/21 15:32 [place] [id number] Rout ine Ultrasound 08/06/21 14:43 [place] [id number] Routin e Ultrasound 08/06/21 14:44 Completed Pending at discharge Category Date Time Status CT angio abd aort a runof [id number] Rout ine Cat Scan 08/06/21 14:45 Ordered Arterial Blood Ga s Full Stat Lab 08/05/21 18:32 Ordered Basic Metabolic P gama AM LABS Lab 08/07/21 04:00 Ordered Blood Culture Sta t Lab 08/05/21 15:25 Results Complete Blood Co unt w/Auto AM LABS Lab 08/07/21 04:00 Ordered Erythrocyte Sedim entation Rate Rout ine Lab 08/06/21 05:53 Received Sputum Culture an d Gram Stain Stat Lab 08/05/21 18:32 Uncollected Urine Culture Sta t Lab 08/05/21 18:25 Results Vancomycin Trough Timed Lab 08/08/21 21:00 Ordered Vitals: Last Vital Signs Temp 98.0 F 08/07/21 16:00 Pulse 84 08/07/21 16:00 Resp 17 08/07/21 16:00 BP 95/60 08/07/21 16:00 Pulse Ox 92 08/07/21 16:00 Discharge Plan Discharge Patient Disposition: Xfer SNF Condition: Stable Prescriptions: New Augmentin 875-125 mg tablet 1 tab PO BID 14 Days Qty: 28 RF: 0 mupirocin 2 % ointment 1 applic topical DAILY 7 Days Qty: 22 RF: 0 levofloxacin 750 mg tablet 750 mg PO DAILY 7 Days RF: 0 Continued allopurinol 100 mg Tablet 100 mg PO DAILY RF: 0 levothyroxine 50 mcg Tablet 50 mcg PO DAILY RF: 0 bisacodyl [Dulcolax (bisacodyl)] 10 mg Suppository 10 mg ME DAILY PRN (Reason: Constipation) RF: 0 pantoprazole 40 mg Tablet,Delayed Release (Dr/Ec) 40 mg PO DAILY RF: 0 nitroglycerin [Nitrostat] 0.4 mg Tablet, Sublingual 0.4 mg SUBLINGUAL Q5M PRN (Reason: Chest Pain) RF: 0 gabapentin 300 mg Capsule 600 mg PO BEDTIME RF: 0 folic acid 1 mg Tablet 1 mg PO DAILY RF: 0 ferrous fumarate 324 mg (106 mg iron) Tablet 324 mg PO DAILY RF: 0 lactulose 10 gram/15 mL Solution 30 ml PO Q6H RF: 0 cholecalciferol (vitamin D3) [Vitamin D3] 25 mcg (1,000 unit) Tablet 25 mcg PO DAILY RF: 0 cyanocobalamin (vitamin B-12) 3,000 mcg Capsule 6,000 mcg PO DAILY RF: 0 midodrine 5 mg Tablet 5 mg PO TID 30 Days Qty: 100 RF: 0 Xifaxan 550 mg Tablet 550 mg PO BID 30 Days Qty: 60 RF: 0 Lasix 20 mg Tablet 20 mg PO DAILY RF: 0 Held spironolactone 50 mg Tablet 50 mg PO DAILY RF: 0 Hold Instructions: see pcp before resuming. blood pressure borderline low Discontinued acetaminophen 325 mg Tablet 650 mg PO Q6H PRN (Reason: Pain) RF: 0 Discharge Orders: Discharge Order (Routine); Ordered 08/07/21 Ordered By: Matilda Hairston Referrals: Bradley Heard MD [Physician] - 7-10 days Ritesh Talavera MD [Physician] - 2 weeks Josiah Andrew DPM [Physician] - 1 [facility] [Staff Physician] - 4-7 days (Sacral Ulcer) Discharge Diet: Low Salt Discharge Activity: Increase activity as tolerated and Oxygen as instructed Activity Restrictions/Additional Instructions: wound care in the form of daily application of Hydrofera Blue and the surrounding skin periwound area Apply zinc oxide cream for skin protection. Recommend turning in bed every 2 hours. Discharge Attestations Time Spent in Discharge Care*: less than 30 min Quality Metrics Clinical Quality Measures During this hospital stay, did patient experience: None Coding Level of Care Code Acute Chg FW DC note Diagnoses Pressure ulcer of sacral region, stage 2 L89.152
[2021-08-08 10:57] LABS: Erythrocyte Sedimentation Rate 22 mm/hr (0-10)
== END 2021-08-07 17:02 | disposition skilled nursing facility (03) | DRG 570 ==
LOC: ER 19:21 → MEDSURG 20:29
PROVIDERS: Admitting Provider Internal Medicine; Emergency Provider Family Medicine; Visit Provider Internal Medicine
DX: L03.031 Cellulitis of right toe (principal); L89.153 Pressure ulcer of sacral region, stage 3; I42.0 Dilated cardiomyopathy; K70.31 Alcoholic cirrhosis of liver with ascites; F10.10 Alcohol abuse, uncomplicated; G62.1 Alcoholic polyneuropathy; L89.152 Pressure ulcer of sacral region, stage 2; E11.9 Type 2 diabetes mellitus without complications; I10 Essential (primary) hypertension; E03.9 Hypothyroidism, unspecified; Z95.810 Presence of automatic (implantable) cardiac defibrillator; Z85.46 Personal history of malignant neoplasm of prostate; I25.10 Atherosclerotic heart disease of native coronary artery without angina pectoris; Z95.1 Presence of aortocoronary bypass graft; Z96.659 Presence of unspecified artificial knee joint; Z87.891 Personal history of nicotine dependence; Z92.3 Personal history of irradiation; J44.9 Chronic obstructive pulmonary disease, unspecified
CPT/HCPCS: 71045; 71275; 73660; 80053; 81001; 82140; 82550; 83605; 83735; 83880; 84145; 85025; 85610; 85651; 85730; 86140; 86403; 87040; 87086; 87426; 87449; 87641; 93005; 93925; 93970; 94640; 94664; 96365; 96367; 99285; J0692; J3370; J7030; J7050; P9047; Q9967

== ENCOUNTER 2021-10-27 10:14 | Outpatient (CLI) | payer OTHER, SELFPAY ==
[2021-10-27 10:36] LABS: Basophils % 0.3 %; Eosinophils % 0.4 %; Hematocrit 27.7 % (42.0-52.0); Hemoglobin 8.5 g/dL (11.7-16.6); Lymphocytes # 1.6 10^3/uL (0.8-4.8); Lymphocytes % 22.6 %; Mean Corpuscular HGB Conc 30.7 g/dL (30.0-36.0); Mean Corpuscular Hemoglobin 26.8 pg (28.0-34.0); Mean Corpuscular Volume 87.4 fl (80-94); Mean Platelet Volume 9.1 fL (7.4-10.4); Monocytes # 0.5 10^3/uL (0.2-0.9); Monocytes % 7.7 %; Neutrophils # 4.82 10^3/uL (1.8-7.7); Neutrophils % 68.6 %; Nucleated Red Blood Cells % 0 %; Platelet Count 75 10^3/cmm (130-400); Red Blood Count 3.17 10^6/uL (4.1-5.3); Red Cell Distribution Width 17.5 % (12.1-15.1)
== END 2021-10-27 10:15 | disposition home or self-care (01) ==
PROVIDERS: PCP Internal Medicine; Visit Provider Internal Medicine
DX: R41.82 Altered mental status, unspecified (principal)
CPT/HCPCS: 85025

== ENCOUNTER 2021-10-27 16:01 | Emergency (ER) | payer OTHER, MEDICARE, SELFPAY ==
[2021-10-27] VITALS (9 sets, daily range): BP systolic 74–102; BP diastolic 49–69; PULSE 70–87; RESP 12–22; TEMP 36.7; O2SAT 92–97; BMI 17.6
--- NOTE | 2021-10-27 16:39 | XRR_ITS ---
PROCEDURE INFORMATION: Exam: XR Chest Exam date and time: 10/27/2021 4:39 PM Age: 76 years old Clinical indication: Cough; Additional info: AMS, cough TECHNIQUE: Imaging protocol: XR of the chest. Views: 1 view. COMPARISON: CR XR chest 1V portable [id number] 08/06/2021 6:48 AM FINDINGS: Tubes, catheters and devices: Pacemaker. Lungs: Left hemithorax is diffusely opacified which appears to be due to an underlying large effusion with possible underlying airspace infiltrate. Right hilar to lower lobe atelectasis versus infiltrate. Pleural spaces: Unremarkable. No pleural effusion. No pneumothorax. Heart/Mediastinum: Unremarkable. No cardiomegaly. Bones/joints: Sternotomy wires. XR/XR chest 1V portable [id number] IMPRESSION: 1. Left hemithorax is diffusely opacified which appears to be due to an underlying large effusion with possible underlying airspace infiltrate. 2. Right hilar to lower lobe atelectasis versus infiltrate.
--- NOTE | 2021-10-27 16:39 | ECG_ITS ---
[facility] Test Date: 2021-10-27 Pat Name: Hernan Rizo Department: Room: Gender: Male Senior Php Web Developer: : 1945 Requested By: Kallie Obregon Order Number: [id number] Ana Maria MD: Natalya Ahn M.D. Measurements Intervals Bell Rate: 86 P: AL: QRS: -76 QRSD: 126 T: 68 QT: 330 QTc: 397 Interpretive Statements ELECTRONIC VENTRICULAR PACEMAKER ABNORMAL RHYTHM ECG Compared to ECG 08/05/2021 17:02:05 No significant changes Electronically Signed On 10-27-2021 19:10:06 SUBSTATION MECHANIC by Natalya Ahn M.D. [email or web address]
[2021-10-27] MEDS: sodium chloride 0.9% 1,000 ML 999 ML IV (16:59)
[2021-10-27] MEDS: hydrocortisone 100 mg/2 mL SDV IVP (16:59)
[2021-10-27] MEDS: cefTRIAXone 1,000 MG in sodium chloride 0.9% (plus) 50 ML 100 MG IV (17:00)
[2021-10-27 17:19] LABS: Basophils % 0.1 %; Eosinophils % 0.6 %; Hematocrit 26.4 % (42.0-52.0); Hemoglobin 8.3 g/dL (11.7-16.6); Lymphocytes # 2.1 10^3/uL (0.8-4.8); Lymphocytes % 30.7 %; Mean Corpuscular HGB Conc 31.4 g/dL (30.0-36.0); Mean Platelet Volume 9.7 fL (7.4-10.4); Monocytes # 0.5 10^3/uL (0.2-0.9); Monocytes % 7.6 %; Neutrophils # 4.13 10^3/uL (1.8-7.7); Neutrophils % 60.7 %; Nucleated Red Blood Cells % 0 %; Platelet Count 133 10^3/cmm (130-400); Red Blood Count 3.07 10^6/uL (4.1-5.3); Red Cell Distribution Width 17.5 % (12.1-15.1); White Blood Count 6.8 10^3/uL (4.0-10.0)
[2021-10-27 17:40] LABS: Alanine Aminotransferase < 5 U/L (0-41); Alkaline Phosphatase 95 IU/L (40-130); Aspartate Amino Transferase 10 U/L (0-40); Blood Urea Nitrogen 37 mg/dL (8-23); Calcium 8.3 mg/dL (8.5-10.5); Carbon Dioxide 25 mmol/L (22-29); Chloride 97 mmol/L (98-107); Globulin 4.4 g/dL (1.3-4.6); Glucose 92 mg/dL (65-115); Magnesium 1.9 mg/dL (1.7-2.3); Osmolality Calculated 282 mOsm/kg (285-295); Sodium 132 mmol/L (136-145); Total Bilirubin 0.8 mg/dL (0.15-1.2); Total Protein 6.4 g/dL (6.6-8.7)
[2021-10-27 17:41] LABS: Lactic Sepsis W/Reflex 1.3 mmol/L (0.5-2.2)
[2021-10-27 18:13] LABS: Ammonia 31 umol/L (16-60)
[2021-10-27 18:49] LABS: Add Urine Microscopic? YES; Bacteria Urine 1+ /hpf; Bilirubin Urine 1+ (Negative); Blood Urine 2+ (Negative); Glucose Urine UA Norm (Normal); Ketones Urine Negative (Negative); Leukocyte Esterase Urine 2+ (Negative); Nitrate Urine Negative (Negative); Protein Urine Neg (Negative); Specific Gravity, Urine 1.015 (1.005-1.030); Squamous Epithelial Cell Urine 0-4 /hpf (0-5); Urine Appearance Clear (CLEAR); Urine Color Yellow (Yellow); Urobilinogen Urine Norm (Negative); WBC Urine 15-25 /hpf (0-5); pH Urine 5 (5-7)
[2021-10-27 18:50] LABS: Add Urine Culture? Yes; Mucus Urine TRACE /hpf
--- NOTE | 2021-10-27 18:59 | ED_ITS ---
HPI - Altered Mental Status General: Chief Complaint: Altered Mental Status Stated Complaint: AMS Time Seen by Provider: 10/27/21 16:31 Source: patient, family and EMS Mode of arrival: EMS Limitations: altered mental status History of Present Illness: HPI narrative: 76-year-old male sent from jail with generalized weakness, decreased responsiveness, poor appetite, nonco mpliance with medications. He has a history of cirrhotic liver disease and dementia. No recent trauma or falls. No fever. No vomiting or diarrhea. He has multiple painful decubitus ulcers; has been resisting dressing changes recently. MD complaint: altered mental status and decreased responsiveness Onset (ago): day(s) Review of Systems General: Reports: ROS unobtainable due to mental status PFSH ED PFSH: Medical History Ascites due to alcoholic cirrhosis Cirrhosis of liver Diabetes mellitus Dilated cardiomyopathy Dyspnea Hepatic encephalopathy Hydrothorax Hypertension Hypothyroidism ICD (implantable cardioverter-defibrillator) in place Prostate cancer Recurrent left pleural effusion Surgical History Hx of CABG Knee joint replacement status Social History Smoking and tobacco status: former smoker Quit status (tobacco): has quit using tobacco Alcohol intake: former Desire information about alcohol rehabilitation?: No Other details last alcohol use: 1 year prior Lives independently: No Household members: spouse Current gender identity: Male Physical Exam Const: GENERAL APPEARANCE: lethargic, ill appearing and frail appearing ORIENTATION/CONSCIOUSNESS: Yes oriented to person, Yes oriented to place and Yes lethargic HENMT: COMMON NORMALS: normocephalic and atraumatic HEAD & SCALP: normocephalic and atraumatic FACE & SINUS: normal facial exam and face symmetric MOUTH: moist mucous membranes abnormal Details: cracked and parched GI: COMMON NORMALS: Soft to palpation and non-tender INSPECTION: No abdominal wall ecchymosis, No Anasarca and Yes other AUSCULTATION: Yes normoactive bowel sounds PALPATION: Yes Soft to palpation, Yes Hepatomegaly present and Yes Ascites present : COMMON NORMALS: Yes normal external exam Back/Pelvis: SACRUM: erythema, swelling and tenderness Extremity: GENERAL: Yes pallor Neuro: COMMON NORMALS: no focal motor deficits SENSORIUM/ORIENTATION: Yes oriented to person, Yes oriented to place and Yes lethargic GAIT: Yes Unable to assess gait (Nonambulatory) Psych: SPEECH: Yes minimal MOOD & AFFECT: Yes depressed mood Skin: GENERAL SKIN EXAM: dry skin and ecchymosis (Diffuse-extensor surfaces of arms) WOUNDS: Yes wounds noted (Sacrum) size (10 x10), bed yellow, with slough and pink, drainage yellow, margins fibrotic and with surrounding erythema ; not necrotic and not indurated and malodorous Course Vital Signs: Vital signs: Vital Signs Temperature 98.1 F 10/27/21 16:36 Pulse Rate 71 10/27/21 21:40 Respiratory Rate 18 10/27/21 21:40 Blood Pressure 102/69 10/27/21 21:40 Pulse Oximetry 94 10/27/21 21:40 MDM - Altered Mental Status MDM Narrative: Medical decision making narrative: 76-year-old jail patient generalized physical deterioration over several weeks. Not eating and drinking, not wanting to take his medications. Treated with IV fluids, antibiotics for UTI, hydrocortisone for hypotension(has missed several doses of midodrine) He has advanced decubitus ulcers, but they do not appear actively infected. I spoke extensively with both his and his granddaughter; It is obvious that his health is deteriorating rapidly, and I think he would benefit from palliative care evaluation. I spoke to staff at his jail and they will require us to submit a referral, which i did. His family is in agreement. I will prescribe a course of oral cefdinir for his UTI. Stable for transport back to his jail. Medical Records: Attestation: I reviewed the patient's medical records. Lab Data: Attestation: I reviewed the patient's lab results. Labs: Lab Results 10/27/21 10/27/21 10/27/21 16:50 16:50 16:50 WBC 6.8 10^3/uL 10^3/ uL (4.0-10.0) RBC 3.07 10^6/uL L 10 ^6/uL (4.1-5.3) Hgb 8.3 g/dL L g/dL (11.7-16.6) Hct 26.4 % L % (42.0-52.0) MCV 86.0 fl fl (80-94) MCH 27.0 pg L pg (28.0-34.0) MCHC 31.4 g/dL g/dL (30.0-36.0) RDW 17.5 % H % (12.1-15.1) Plt Count 133 10^3/cmm D 1 0^3/cmm (130-400) MPV 9.7 fL fL (7.4-10.4) Neut % (Auto) 60.7 % % Lymph % (Auto) 30.7 % % [place] % (Auto) 7.6 % % Eos % (Auto) 0.6 % % Baso % (Auto) 0.1 % % Neut # (Auto) 4.13 10^3/uL 10^3 /uL (1.8-7.7) Lymph # (Auto) 2.1 10^3/uL 10^3/ uL (0.8-4.8) [place] # (Auto) 0.5 10^3/uL 10^3/ uL (0.2-0.9) Eos # (Auto) 0.0 10^3/uL 10^3/ uL (0.0-0.8) Baso # (Auto) 0.0 10^3/uL 10^3/ uL (0.0-0.1) Nucleated RBC % (a uto) 0 % % Nucleated RBCs # 0.0 /100WBC /100W BC Sodium 132 mmol/L L mmol /L (136-145) Potassium 4.0 mmol/L mmol/L (3.5-5.1) Chloride 97 mmol/L L mmol/ L (98-107) Carbon Dioxide 25 mmol/L mmol/L (22-29) Anion Gap 14.0 (5-19) BUN 37 mg/dL H mg/dL (8-23) Creatinine 1.0 mg/dL mg/dL (0.7-1.2) GFR Calculation Not Reportable Glucose 92 mg/dL mg/dL (65-115) Calculated Osmolal ity 282 mOsm/kg L mOs m/kg (285-295) Lactic Acid 1.3 mmol/L mmol/L (0.5-2.2) Calcium 8.3 mg/dL L mg/dL (8.5-10.5) Magnesium 1.9 mg/dL mg/dL (1.7-2.3) Total Bilirubin 0.8 mg/dL mg/dL (0.15-1.2) AST 10 U/L U/L (0-40) ALT < 5 U/L U/L (0-41) Alkaline Phosphata se 95 IU/L IU/L (40-130) Ammonia Total Protein 6.4 g/dL L g/dL (6.6-8.7) Albumin 2.0 g/dL L g/dL (3.5-5.2) Globulin 4.4 g/dL g/dL (1.3-4.6) Urine Color Urine Appearance Urine pH Ur Specific Gravit y Urine Protein Urine Glucose (UA) Urine Ketones Urine Blood Urine Nitrate Urine Bilirubin Urine Urobilinogen Ur Leukocyte Arti ase Urine RBC Urine WBC Ur Squamous Epith Cells Amorphous Sediment Urine Bacteria Urine Mucus Urine Yeast 10/27/21 10/27/21 17:36 18:01 WBC RBC Hgb Hct MCV MCH MCHC RDW Plt Count MPV Neut % (Auto) Lymph % (Auto) [place] % (Auto) Eos % (Auto) Baso % (Auto) Neut # (Auto) Lymph # (Auto) [place] # (Auto) Eos # (Auto) Baso # (Auto) Nucleated RBC % (a uto) Nucleated RBCs # Sodium Potassium Chloride Carbon Dioxide Anion Gap BUN Creatinine GFR Calculation Glucose Calculated Osmolal ity Lactic Acid Calcium Magnesium Total Bilirubin AST ALT Alkaline Phosphata se Ammonia 31 umol/L umol/L (16-60) Total Protein Albumin Globulin Urine Color Yellow (Yellow) Urine Appearance Clear (CLEAR) Urine pH 5 (5-7) Ur Specific Gravit y 1.015 (1.005-1.030) Urine Protein Neg (Negative) Urine Glucose (UA) Norm (Normal) Urine Ketones Negative (Negative) Urine Blood 2+ H (Negative) Urine Nitrate Negative (Negative) Urine Bilirubin 1+ H (Negative) Urine Urobilinogen Norm mg/dL mg/dL (Negative) Ur Leukocyte Arti ase 2+ H (Negative) Urine RBC 10-15 /hpf H /hpf (0-2) Urine WBC 15-25 /hpf H /hpf (0-5) Ur Squamous Epith Cells 0-4 /hpf H /hpf (0-5) Amorphous Sediment Not Reportable Urine Bacteria 1+ /hpf H /hpf (NONE) Urine Mucus Trace /hpf /hpf Urine Yeast 1+ /hpf H /hpf Discharge Plan Discharge Patient Disposition: Home Clinical Impression: Protein-calorie malnutrition, severe, General body deterioration UTI (urinary tract infection) Qualifiers: Urinary tract infection type: acute cystitis Hematuria presence: with hematuria Qualified Code(s): N30.01 - Acute cystitis with hematuria Decubitus ulcers Qualifiers: Pressure injury location: contiguous region involving back and buttock Pressure injury stage: stage 3 Laterality: unspecified laterality Qualified Code(s): L89.43 - Pressure ulcer of contiguous site of back, buttock and hip, stage 3 Condition: Stable Prescriptions: New cefdinir 250 mg/5 mL suspension for reconstitution 300 mg PO BID 7 Days Qty: 84 RF: 0 No Action allopurinol 100 mg Tablet 100 mg PO DAILY RF: 0 levothyroxine 50 mcg Tablet 50 mcg PO DAILY RF: 0 bisacodyl [Dulcolax (bisacodyl)] 10 mg Suppository 10 mg IN DAILY PRN (Reason: Constipation) RF: 0 pantoprazole 40 mg Tablet,Delayed Release (Dr/Ec) 40 mg PO DAILY RF: 0 nitroglycerin [Nitrostat] 0.4 mg Tablet, Sublingual 0.4 mg SUBLINGUAL Q5M PRN (Reason: Chest Pain) RF: 0 gabapentin 300 mg Capsule 600 mg PO BEDTIME RF: 0 folic acid 1 mg Tablet 1 mg PO DAILY RF: 0 ferrous fumarate 324 mg (106 mg iron) Tablet 324 mg PO DAILY RF: 0 lactulose 10 gram/15 mL Solution 30 ml PO Q6H RF: 0 cholecalciferol (vitamin D3) [Vitamin D3] 25 mcg (1,000 unit) Tablet 25 mcg PO DAILY RF: 0 cyanocobalamin (vitamin B-12) 3,000 mcg Capsule 6,000 mcg PO DAILY RF: 0 midodrine 5 mg Tablet 5 mg PO TID 30 Days Qty: 100 RF: 0 Xifaxan 550 mg Tablet 550 mg PO BID 30 Days Qty: 60 RF: 0 Lasix 20 mg Tablet 20 mg PO DAILY RF: 0 spironolactone 50 mg Tablet 50 mg PO DAILY RF: 0 Hold Instructions: see pcp before resuming. blood pressure borderline low Discharge Orders: Discharge ED (Routine); Ordered 10/27/21 Ordered By: Kallie Obregon Referrals: Carlos Muro DO [Primary Care Provider] - Discharge Diet: Advance as tolerated Discharge Activity: Bedrest Activity Restrictions/Additional Instructions: Hospice referral placed Coding Level of Care Code ED Private [employer] Adviser for Carolin Rodarte
--- NOTE | 2021-11-04 15:05 | DCPLANNER ---
[employer] broker[employer] manager had message to speak with patient about palliative care - caseworker unable to speak with anyone at this time.
== END 2021-10-27 21:42 | disposition home or self-care (01) ==
PROVIDERS: Emergency Provider Family Medicine; PCP Internal Medicine
DX: N30.01 Acute cystitis with hematuria (principal); L89.43 Pressure ulcer of contiguous site of back, buttock and hip, stage 3; E43 Unspecified severe protein-calorie malnutrition; R53.81 Other malaise; E11.9 Type 2 diabetes mellitus without complications; I10 Essential (primary) hypertension; Z95.810 Presence of automatic (implantable) cardiac defibrillator; Z85.46 Personal history of malignant neoplasm of prostate; Z95.1 Presence of aortocoronary bypass graft; Z87.891 Personal history of nicotine dependence
CPT/HCPCS: 71045; 80053; 81001; 82140; 83605; 83735; 85025; 87040; 87086; 87106; 93005; 96365; 96375; 99284; J0696; J1720; J7030